=== PATIENT | female | born 1935 | race Caucasian/White ===

== ENCOUNTER 2017-01-06 08:45 | Observation (INO) | payer MEDICARE, BC ==
[~2017-01-06] VITALS: TEMP 98.2; Ht 165.1 cm; Wt 76.8 kg
[~2017-01-06 08:45] MED LIST: ATOR20TA59 PO; BUME2TAB18 PO; BUSP10TA3 PO; CALC1TAB; CLON0.5T23 PO; LANS30CA50 PO; MIRT45TA4 PO; MULT-684 PO; NITR0.4T SL; OMEG300C PO; POLY255P2 PO; POTA-81 PO; RIVA15TA PO; SOTA80TA PO; TEMA15CA PO; VILA40TA PO
[2017-01-06] MEDS ORDERED: IOHEXOL 350 MG/ML 75ml INJECTION ONE (09:02)
[2017-01-06] MEDS ORDERED: SALINE FLUSH 10ml SYRINGE ONE ×2 (09:02→09:19)
[2017-01-06] MEDS ORDERED: NORMAL SALINE 100 ML ONE (09:02)
--- NOTE | 2017-01-06 09:35 | NUR ---
ARRIVAL AMBULATORY WITH WALKER TO ROOM 116 WITH DAUGHTER DION. ALERT AND ORIENTED X3. O2 3L PER NC. IVL IN PLACE. SITE FLUSHES WELL. PATIENT AND FAMILY ORIENTED TO SURROUNDINGS. WILL CONTINUE TO MONITOR.
[2017-01-06 09:47] VITALS: Ht 165.1 cm; Wt 76.8 kg
[2017-01-06 09:51] VITALS: BP 138/73; PULSE 63; RESP 18; TEMP 98.1; O2SAT 96
--- NOTE | 2017-01-06 09:55 | DI ---
Indication: ITS.REASON: I27.2 Pulmonary hypertension; I50.9 Heart failure PROCEDURE: CTA PULMONARY EMBOLI: Encounter: Initial Comparison: None Technique: Axial CT pulmonary angiographic phase images were performed through the chest after the administration of intravenous contrast. Coronal and Sagittal MIP reconstructed images were created and reviewed. Automated Exposure Control and Iterative Reconstruction dose reducing techniques were utilized. Contrast: Omnipaque 350 62 mL Findings: Pulmonary arteries: Exam is diagnostic to the subsegmental pulmonary arterial level. No filling defects identified to suggest a pulmonary embolus. Other findings: Small bilateral pleural effusions, right greater than left with compressive atelectasis. No pneumothorax. Calcified granuloma in the right lower lobe. No worrisome pulmonary masses. The central airways are patent. No axillary or or mediastinal adenopathy. Heart is severely enlarged. No pericardial effusion. Prior CABG. The upper abdomen shows reflux of contrast into the hepatic veins consistent with right heart insufficiency. Bone windows show no acute findings. Impression: 1. No pulmonary embolus. 2. Small bilateral pleural effusions and evidence of right heart insufficiency. 3. Severe cardiomegaly. .
[2017-01-06 10:38] VITALS: PULSE 58; RESP 18
[2017-01-06 10:42] LABS: BASOPHILS % (AUTO) 0.9 % (0-2); EOSINOPHILS # (AUTO) 0.2 T/MM3 (0-0.5); EOSINOPHILS % (AUTO) 4.2 % (0-4); HCT - HEMATOCRIT 26.4 % (36-46); HGB - HEMOGLOBIN 7.2 GM/DL (12-16); LYMPHOCYTES # (AUTO) 1.7 T/MM3 (1-4.8); LYMPHOCYTES % (AUTO) 36.2 % (23-45); MEAN CORPUSCULAR HGB 22.5 UUG (26-34); MEAN CORPUSCULAR HGB CONC(MCHC 27.3 GM/DL (31-37); MEAN CORPUSCULAR VOLUME 82.5 UM3 (80-100); MEAN PLATELET VOLUME 9.8 UM3 (9.4-12.4); MONOCYTES # (AUTO) 0.4 T/MM3 (0-0.8); NEUTROPHILS #(AUTO)-ABSOLUTE 2.3 T/MM3 (1.8-7.7); NEUTROPHILS % (AUTO) 49.7 % (33-66); WBC - WHITE BLOOD COUNT 4.6 T/MM3 (4.5-11.0)
[2017-01-06 10:53] LABS: ALBUMIN 3.7 G/DL (3.5-5.0); ALBUMIN/GLOBULIN RATIO 1.3 RATIO (1.1-2.2); ALKALINE PHOSPHATASE 83 U/L (38-126); ALT (SGPT) 35 U/L (9-52); ANION GAP 8 MEQ/L (5-15); AST (SGOT) 40 U/L (14-36); BUN/CREATININE RATIO 19 RATIO (6-26); CALCIUM 9.3 MG/DL (8.4-10.2); CHLORIDE 100 MEQ/L (98-107); CO2 - CARBON DIOXIDE 35 MEQ/L (22-30); CREATININE 1.6 MG/DL (0.7-1.2); GLOMERULAR FILTRATION RATE 31; GLUCOSE 104 MG/DL (65-110); MAGNESIUM 2.4 MG/DL (1.6-2.3); POTASSIUM 4.4 MEQ/L (3.6-5); SODIUM 143 MEQ/L (134-144); TOTAL PROTEIN 6.6 G/DL (6.3-8.2)
[2017-01-06 10:56] LABS: INR 1.38 (0.76-1.04)
--- NOTE | 2017-01-06 11:33 | NUR ---
LAB/NOTIFICATION DR. ABDULLAHI NOTIFIED OF HGB 7.[address] ABDULLAHI GAVE VERBAL ORDERS TO THIS RN TO RECHECK CBC NOW. RN VERBALIZED UNDERSTANDING. ORDERS IMPLEMENTED AND LAB NOTIFIED.
[2017-01-06 11:53] LABS: HCT - HEMATOCRIT 25.9 % (36-46); MEAN CORPUSCULAR HGB 22.2 UUG (26-34); MEAN CORPUSCULAR VOLUME 82.2 UM3 (80-100); MEAN PLATELET VOLUME 9.6 UM3 (9.4-12.4); RED BLOOD COUNT 3.15 M/MM3 (4.00-5.20); WBC - WHITE BLOOD COUNT 4.8 T/MM3 (4.5-11.0)
[2017-01-06 11:58] LABS: EOSINOPHILS # (MANUAL) 0.2 T/MM3 (0-0.5); LYMPHOCYTES # (MANUAL) 2.2 T/MM3 (1-4.8); MONOCYTES # (MANUAL) 0.5 T/MM3 (0-0.8); NEUTROPHILS #(MANUAL)-ABSOLUTE 1.9 T/MM3 (1.8-7.7); TOTAL CELLS COUNTED 100 %
[2017-01-06] MEDS: NORMAL SALINE 1,000 ML IV SCH ×3 (12:07→18:47)
[2017-01-06] MEDS ORDERED: PNEUMOCOCCAL VAC. ADMIN. CHARGE INJ ONE (14:00)
[2017-01-06 14:11] VITALS: PULSE 58; RESP 18
--- NOTE | 2017-01-06 14:25 | HPPDOC ---
SAVI JEAN V CONSUMER SAFETY INSPECTOR 01/06/17 1425: HPI - Adult Date DATE: 01/06/17 TIME: 14:22 General Chief Complaint: anemia, acute kidney injury History of Present Illness Patient is an 81-year-old female who presented to [facility] today for scheduled GABRIELA under the care of Dr. Mckeon. Preoperative lab revealed anemia with a hemoglobin of 7.0. WBC 4.8, hemoglobin 25.9. Sodium is 143, potassium 4.4, BUNs 31, creatinine 1.6, catheter osmology 282, magnesium 2.4, AST 40. Her last reported creatinine was in September 2016 in which it was 1.2. Given the findings of anemia, accompanied with acute kidney injury. The GABRIELA was canceled and the hospitalist services were contacted for admission for further evaluation and workup. Patient is seen on initial examination with her daughter at the bedside. She is alert and oriented and pleasant. She has been on Xarelto long-term for history of atrial fibrillation. She denies having a history of GI bleeding, however, does report several weeks ago. She did note one episode where her stool was black in color. She also describes having an ongoing intermittent nausea, feeling throughout her abdomen, however, denies vomiting or hemoptysis. Admission vital signs to between 98.1, pulse 63, blood pressure 138/73, pulse ox 96% on 3 liters. 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 Hysterectomy ERCP-1985 Last reported colonoscopy and EGD were in 2001 Current Medications Home Meds Reported Medications Rivaroxaban (Xarelto) 15 Mg Tablet, 15 MG PO DAILY, TAB Take 1 tablet, by mouth, 2 times a day with meals. 09/15/16 Potassium Chloride (Potassium Chloride) 20 Meq Tablet.er, 20 MEQ PO BID, TAB Take 1 tablet, by mouth, daily with breakfast. 09/15/16 Nitroglycerin (Nitrostat) 0.4 Mg Tablet, 0.4 MG SL Y for PRN ORDERS, TAB 09/15/16 Lansoprazole (Prevacid) Unknown Strength Capsule.dr, PO DAILY, CAP 09/15/16 Sotalol HCl (Sotalol) 80 Mg Tablet, 80 MG PO ACBID, TAB Take 1 tablet, by mouth, 2 times a day (before meals). 09/10/16 Clonazepam (Clonazepam) 0.5 Mg Tab.rapdis, 1 TAB PO TID, TAB 09/10/16 Calcium Carbonate/Vitamin D3 (Caltrate 600 + D Tablet) 1 Each Tablet, 1 TAB DAILY 09/10/16 Polyethylene Glycol 3350 (Polyethylene Glycol 3350) 255 Gm Powder, 17 GM PO DAILY Y for PRN ORDERS, #527 GM 09/10/16 Bumetanide (Bumetanide) 2 Mg Tablet, 1 TAB PO BID, #30 TAB 5 Refills 09/10/16 Multivitamin W/Iron, Minerals (Multivitamins with Iron) 1 Each Tab.chew, 1 TAB PO DAILY 08/21/16 Atorvastatin Calcium (Atorvastatin Calcium) 20 Mg Tablet, 20 MG PO HS 08/21/16 Temazepam (Temazepam) 15 Mg Capsule, 15 MG PO HS Y for ANXIETY 01/04/16 Buspirone HCl (Buspirone HCl) 10 Mg Tablet, 10 MG PO BID 01/04/16 Vilazodone Hydrochloride (Viibryd) 40 Mg Tablet, 40 MG PO DAILY 10/11/15 Mirtazapine (Mirtazapine) 45 Mg Tablet, 45 MG PO HS 10/11/15 Allergies: Coded Allergies: morphine (Verified Allergy, Severe, CARDIAC ARREST, 01/06/17) Family History Family History: Father with congestive heart failure Brother with bone cancer Social History Smoking Status: Never smoker Substance Use Type: does not use Alcohol Intake: none Housing: house Advance Directives: Yes DPOA for Healthcare Only, Yes Full Code Social History Comments Primary care provider, Dr. Garsia [facility]ter, Dr Mckeon Review of Systems Constitutional: REPORTS: fatigue GI Upper Abdomen: nausea Comments 1 dark stool- 1 week ago Musculoskeletal General: weakness (RLE weakness) All Other Systems All Other Systems: Reviewed (remainder of 10-point ROS Neg.) Physical Exam General General Nourishment: well nourished, well developed Vital Signs Vital Signs Date Time Temp Pulse Resp B/P Pulse Ox O2 Delivery O2 Flow Rate FiO2 01/06/17 14:11 58 18 01/06/17 09:51 98.1 138/73 96 Nasal Cannula 3.00 Height (Feet): 5 Height (Inches): 5.00 Eyes Brief: FOUND: EOMI, PERRL Respiratory Brief: FOUND: clear all batista, equal bilaterally, NOT FOUND: wheezes Cardiovascular (brief) Cardiac Brief: FOUND: regular rate, regular rhythm, NOT FOUND: murmur, pedal edema Abdomen (brief) Abdominal Brief: FOUND: BS normo active x4, soft, NOT FOUND: distended, tender Musculoskeletal (brief) Musculoskeletal Brief: NOT FOUND: tenderness Integumentary (brief) Integumentary Brief: FOUND: dry, pink, warm Neurologic (brief) Neurological Brief: FOUND: cranial 2-12 intact, motor, sensory Neurologic RN Documented GCS Eye Opening: Verbal: Motor: Total: Psychiatric (brief) FOUND: alert, attentive, normal affect, oriented Laboratory Laboratory Tests Test 01/06/17 10:11 01/06/17 11:45 White Blood Count 4.6T/MM3 4.8T/MM3 Red Blood Count 3.20M/MM3 3.15M/MM3 Hemoglobin 7.2GM/DL 7.0GM/DL Hematocrit 26.4% 25.9% Mean Corpuscular Volume 82.5UM3 82.2UM3 Mean Corpuscular Hemoglobin 22.5UUG 22.2UUG Mean Corpuscular Hemoglobin Concent 27.3GM/DL 27.0GM/DL RDW Standard Deviation 47.9FL 47.2FL Platelet Count 244T/MM3 227T/MM3 Mean Platelet Volume 9.8UM3 9.6UM3 Immature Granulocyte % (Auto) 0.0% Neutrophils (%) (Auto) 49.7% Lymphocytes (%) (Auto) 36.2% Monocytes (%) (Auto) 9.0% Eosinophils (%) (Auto) 4.2% Basophils (%) (Auto) 0.9% Absolute Immature Granulocyte (auto 0.00T/MM3 Absolute Neutrophils (auto) 2.3T/MM3 Absolute Lymphocytes (auto) 1.7T/MM3 Absolute Monocytes (auto) 0.4T/MM3 Absolute Eosinophils (auto) 0.2T/MM3 Absolute Basophils (auto) 0.0T/MM3 Prothromb Time International Ratio 1.38 Turbidity < 20 Sodium Level 143MEQ/L Potassium Level 4.4MEQ/L Chloride Level 100MEQ/L Carbon Dioxide Level 35MEQ/L Anion Gap 8MEQ/L Blood Urea Nitrogen 31.0MG/DL Creatinine 1.6MG/DL Glomerular Filtration Rate Calc 31 BUN/Creatinine Ratio 19RATIO Glucose Level 104MG/DL Calculated Osmolality 282MOSM/KG Calcium Level 9.3MG/DL Magnesium Level 2.4MG/DL Total Bilirubin 0.50MG/DL Icterus Index < 2 Aspartate Amino Transf (AST/SGOT) 40U/L Alanine Aminotransferase (ALT/SGPT) 35U/L Alkaline Phosphatase 83U/L Total Protein 6.6G/DL Albumin 3.7G/DL Globulin 2.9G/DL Albumin/Globulin Ratio 1.3RATIO Chemistry Specimen Hemolysis < 15 Neutrophils % (Manual) 39.0% Band Neutrophils % 1.0% Lymphocytes % (Manual) 45.0% Monocytes % (Manual) 11.0% Eosinophils % (Manual) 4.0% Absolute Neutrophils (Manual) 1.9T/MM3 Band Neutrophils # 0.0T/MM3 Lymphocytes # (Manual) 2.2T/MM3 Monocytes # (Manual) 0.5T/MM3 Eosinophils # (Manual) 0.2T/MM3 Red Cell Morphology Comment Normal Assessment & Plan Problems: (1) Anemia Status: Acute (2) Acute kidney injury Status: Acute Assessment & Plan: Baseline creatinine appears to be 1-1.2 (3) Respiratory failure with hypoxia Qualifiers: Chronicity: acute on chronic Qualified Codes: J96.21 - Acute and chronic respiratory failure with hypoxia (4) Atrial fibrillation Status: Chronic Qualifiers: Atrial fibrillation type: paroxysmal Qualified Codes: I48.0 - Paroxysmal atrial fibrillation (5) Chronic anticoagulation Status: Chronic Assessment & Plan: Xarelto (6) Hx of breast cancer (7) Bipolar 1 disorder Status: Chronic (8) Depression Status: Chronic (9) Pulmonary hypertension Status: Chronic (10) HTN (hypertension) Status: Chronic (11) GERD (gastroesophageal reflux disease) Status: Chronic (12) IBS (irritable bowel syndrome) Status: Chronic (13) Constipation Status: Chronic (14) History of CVA with residual deficit Status: Resolved Plan/Intensity of Service Admit patient to outpatient observation under care of Dr. Crooks for anemia and acute kidney injury. Continue with consultation to Dr. Mckeon for further cardiac evaluation and recommendations this patient has significant cardiac history including pulmonary hypertension and right congestive heart failure. Continue to monitor patient on cardiac telemetry. CT angiogram was performed this morning which was negative for PE , however, does show small bilateral pleural effusions with evidence of right heart insufficiency and severe cardiomegaly. Regards to anemia. Will recheck a H&H this afternoon, will check Iron and also obtain a stool for occult blood. Patient continues on normal saline at 100 ML per hour. Will need to use caution with fluid overload given current cardiac status. However she will benefit from hydration given her acute kidney injury as well as seeming IV dye earlier today. Continue with oxygen to maintain adequate saturations. The patient states to use to only use oxygen at home, however, has required oxygen more routinely recently. She may have cardiac diet. SCDs to bilateral lower extremity for DVT prophylaxis Will resume home medications, however at this time, will hold Xarelto until further evaluation. Will discuss further plan of care with Dr. Crooks At time of discharge medical care will return to primary care provider [facility] samuels, Dr. Garsia DVT Prophylaxis: SCD'S Code Status Full Code Hospital Course Summary Disclaimer The hospital course summary below is not to be considered part of the above Progress Note. Hospital Course Summary 01/06/17 Admit patient to outpatient observation under care of Dr. Crooks for anemia and acute kidney injury. Continue with consultation to Dr. Mckeon for further cardiac evaluation and recommendations this patient has significant cardiac history including pulmonary hypertension and right congestive heart failure. Continue to monitor patient on cardiac telemetry. CT angiogram was performed this morning which was negative for PE , however, does show small bilateral pleural effusions with evidence of right heart insufficiency and severe cardiomegaly. Regards to anemia. Will recheck a H&H this afternoon, will check Iron and also obtain a stool for occult blood. Patient continues on normal saline at 100 ML per hour. Will need to use caution with fluid overload given current cardiac status. However she will benefit from hydration given her acute kidney injury as well as seeming IV dye earlier today. Continue with oxygen to maintain adequate saturations. The patient states to use to only use oxygen at home, however, has required oxygen more routinely recently. She may have cardiac diet. SCDs to bilateral lower extremity for DVT prophylaxis Will resume home medications, however at this time, will hold Xarelto until further evaluation. Will discuss further plan of care with Dr. Crooks At time of discharge medical care will return to primary care provider [facility], Dr. Ady CROOKS,ALEXSANDRA Moore MD 01/06/17 3210: Past Medical History Current Medications Home Meds Reported Medications Rivaroxaban (Xarelto) 15 Mg Tablet, 15 MG PO DAILY, TAB Take 1 tablet, by mouth, 2 times a day with meals. 09/15/16 Potassium Chloride (Potassium Chloride) 20 Meq Tablet.er, 20 MEQ PO BID, TAB Take 1 tablet, by mouth, daily with breakfast. 09/15/16 Nitroglycerin (Nitrostat) 0.4 Mg Tablet, 0.4 MG SL Y for PRN ORDERS, TAB 09/15/16 Lansoprazole (Prevacid) Unknown Strength Capsule.dr, PO DAILY, CAP 09/15/16 Sotalol HCl (Sotalol) 80 Mg Tablet, 80 MG PO ACBID, TAB Take 1 tablet, by mouth, 2 times a day (before meals). 09/10/16 Clonazepam (Clonazepam) 0.5 Mg Tab.rapdis, 1 TAB PO TID, TAB 09/10/16 Calcium Carbonate/Vitamin D3 (Caltrate 600 + D Tablet) 1 Each Tablet, 1 TAB DAILY 09/10/16 Polyethylene Glycol 3350 (Polyethylene Glycol 3350) 255 Gm Powder, 17 GM PO DAILY Y for PRN ORDERS, #527 GM 09/10/16 Bumetanide (Bumetanide) 2 Mg Tablet, 1 TAB PO BID, #30 TAB 5 Refills 09/10/16 Multivitamin W/Iron, Minerals (Multivitamins with Iron) 1 Each Tab.chew, 1 TAB PO DAILY 08/21/16 Atorvastatin Calcium (Atorvastatin Calcium) 20 Mg Tablet, 20 MG PO HS 08/21/16 Temazepam (Temazepam) 15 Mg Capsule, 15 MG PO HS Y for ANXIETY 01/04/16 Buspirone HCl (Buspirone HCl) 10 Mg Tablet, 10 MG PO BID 01/04/16 Vilazodone Hydrochloride (Viibryd) 40 Mg Tablet, 40 MG PO DAILY 10/11/15 Mirtazapine (Mirtazapine) 45 Mg Tablet, 45 MG PO HS 10/11/15 Allergies: Coded Allergies: morphine (Verified Allergy, Severe, CARDIAC ARREST, 01/06/17) Assessment & Plan Problems: (1) Anemia Status: Acute (2) Acute kidney injury Status: Acute Assessment & Plan: Baseline creatinine appears to be 1-1.2 (3) Respiratory failure with hypoxia Qualifiers: Chronicity: acute on chronic Qualified Codes: J96.21 - Acute and chronic respiratory failure with hypoxia (4) Atrial fibrillation Status: Chronic Qualifiers: Atrial fibrillation type: paroxysmal Qualified Codes: I48.0 - Paroxysmal atrial fibrillation (5) Chronic anticoagulation Status: Chronic Assessment & Plan: Xarelto (6) Hx of breast cancer (7) Bipolar 1 disorder Status: Chronic (8) Depression Status: Chronic (9) Pulmonary hypertension Status: Chronic (10) HTN (hypertension) Status: Chronic (11) GERD (gastroesophageal reflux disease) Status: Chronic (12) IBS (irritable bowel syndrome) Status: Chronic (13) Constipation Status: Chronic (14) History of CVA with residual deficit Status: Resolved Assessment I have independently evaluated and examined this patient. I reviewed the chart, the patient's history, and the CONSUMER SAFETY INSPECTOR's documented findings as above. We discussed and formulated the assessment and plan as above with additions as below: Wednesday was seen with her daughter at the bedside. She describes chronic nausea and discomfort across her upper abdomen without reflux or indigestion provided she takes PPI. She is not aware of any overt bleeding but did have a dark stool several weeks ago suspicious for melena. She denies chest pain and recent ischemic evaluation was negative. She describes chronic exertional dyspnea requiring oxygen and minor right lower extremity weakness due to stroke in the past. On examination chest decreased breath sounds at the right base, cardiac rhythm is regular, abdomen is distended suggestive of ascites. There is minor edema in dependent thighs but no edema at the ankles. Neck veins are distended. Repeat hemoglobin was 7.0 with MCV of 82.2. Last known hemoglobin was a little above 10 but that was in August and presumably prior to surgery. The patient's creatinine is 1.6 with prior surgery in August of 1.2. This preceded contrast dye administration earlier today. The patient has not been hypotensive since arrival. CTA has been reviewed by myself demonstrating right greater than left pleural effusions which are small to moderate, cardiomegaly, and no evidence of PE. There is suggestion of ascites in limited upper abdominal cuts but this is not definite. One unit of blood to be transfused tonight and hemoglobin reassessed in the morning. Iron studies to be obtained as iron deficiency suggested. Check Hemoccults-chronic blood loss likely, EGD may be necessary but will defer until cardiac evaluation completed. Monitor urine output, reassess renal function in a.m. following dye administration. Diuretics on hold pending stabilization of renal function-renal insufficiency likely multifactorial. Will benefit from ambulatory oximetry tomorrow to determine O2 demand with activities. In addition to above diagnoses please add: #1 coronary artery disease #2 valvular heart disease #3 diastolic/valvular heart failure, chronic Plan/Intensity of Service Discussed with Dr. Mckeon, CT reviewed by myself, laboratory data reviewed, past records reviewed SAVI JEAN APRN Jan 06, 2017 14:25 ALEXSANDRA CROOKS MD Jan 06, 2017 18:10
[2017-01-06] MEDS ORDERED: PNEUMOCOCCAL 13 VACCINE 0.5 ML SYRINGE IM ONE (14:30)
--- OUTSIDE RECORDS SUMMARY | 2017-01-06 14:49 | XMS REPORT | Continuity of Care Document ---
Author Author [facility] Organization [facility] Address Unknown Phone Unavailable Support Name Relationship Address Phone EUGENE SALES MD Caregiver [facility] [address] [place] [address] [address] [place] [phone] VARSHA VIDLA DO Caregiver [address] [place] [phone] NELLIEELLIOT POLLACKDY Next Of Kin [address] [place] [address] Insurance Providers Payer Name Policy Number Subscriber Name Relationship Medicare [id number] Wednesday,Rubin Hidalgo 18 Self [facility] [id number] Wednesday,Rubin Hidalgo 18 Self Advance Directives Directive Response Recorded Date/Time Advanced Directives Type Living Will DPOA for Healthcare 05/03/14 11:57am Ordered Resuscitation Status Full Code 05/03/14 3:58pm Resuscitation Documents on File No 05/03/14 11:57am Chief Complaint and Reason for Visit Chief Complaint RT COMPLETE MASTECTOMY/RT AXILLARY LYMPH NODE SAM Reason for Visit Breast carcinoma Problems Medical Problems Problem Onset Date Status EXPRESSIVE APHASIA Unknown Active Breast carcinoma 07/03/2014 Active Medications Medication Dose Route Sig Days/Qty Instructions Order Date Discontinued Date Status [Aspirin] 11/06/08 03/16/09 Discontinued [Bultalbital/Asa,Caff] 11/06/08 09/18/11 Discontinued [Clonazepam] 11/06/08 09/18/11 Discontinued [Effexor] 11/06/08 09/18/11 Discontinued [Metoprol] 11/06/08 09/18/11 Discontinued [Plendil Cr] 11/06/08 09/18/11 Discontinued [Prevacid] 11/06/08 09/18/11 Discontinued [Temazepam] 11/06/08 09/18/11 Discontinued [Vitamins] 11/06/08 09/18/11 Discontinued Warfarin Sodium 5 Mg PO 03/16/09 09/18/11 Discontinued Oxycodone Hcl/Acetaminophen 1 Pack PO 03/16/09 09/18/11 Discontinued L-Methylfolate 15 Mg PO BEDTIME 09/18/11 10/11/13 Discontinued Duloxetine Hcl 60 Mg PO DAILY 09/18/11 01/09/12 Discontinued Aripiprazole 2 DAILY 09/18/11 01/09/12 Discontinued Aspirin 325 Mg PO BEDTIME 09/18/11 10/11/13 Discontinued Clonazepam 1 Mg PO TWICE A DAY 09/18/11 01/09/12 Discontinued Metoprolol Tartrate 50 Mg PO TWICE A DAY 09/18/11 07/03/14 Discontinued Temazepam 15 Mg PO BEDTIME 09/18/11 Active Fish Oil/[place]-3 Fatty Acids 1 Cap PO BEDTIME 09/18/11 01/09/12 Discontinued Polyethylene Glycol 3350 12 Ea PO Q2D 09/18/11 Active Clonazepam 1 Mg PO BEDTIME 09/18/11 12/31/11 Discontinued Lansoprazole 30 Mg PO DAILY 09/18/11 Active Tolterodine Tartrate 4 Mg PO DAILY 12/31/11 10/11/13 Discontinued Butalb/Acetaminophen/Caffeine 1 Tab PO NEEDED 12/31/11 10/11/13 Discontinued Clidinium Br/Chlordiazepoxide 1 Cap PO NEEDED 12/31/11 10/11/13 Discontinued Fa/Mv,Ca,Fe,Min/Lycopene/Lut 1 Tab PO DAILY 01/09/12 Active [Occuvite Vitamin] 1 Tab PO DAILY 01/09/12 Active Naphazoline Hcl/Peg 300 15 Ml OP DAILY 01/09/12 Active Promethazine Hcl 25 Mg PO Q6H PRN 01/09/12 Active [[place] C] 800 Mg PO DAILY 01/09/12 04/14/13 Discontinued Mirtazapine 15 Mg PO DAILY 0.5 TAB 04/14/13 10/11/13 Discontinued Hydrocodone Bit/Acetaminophen 1 Udtab PO NEEDED 04/14/13 Discontinued Felodipine 10 Mg PO DAILY 04/14/13 07/03/14 Discontinued [Vibryd] 40 Mg DAILY 04/14/13 Active Calcium Carbonate/Vitamin D3 1 Tab PO TWICE A DAY 04/14/13 Active Ondansetron Hcl 8 Mg PO NEEDED 04/14/13 Active Lorazepam 0.5 Mg PO NEEDED 04/14/13 10/11/13 Discontinued Promethazine Hcl 25 Mg PO NEEDED 04/14/13 10/11/13 Discontinued Sucralfate 1 G PO DAILY 04/14/13 10/11/13 Discontinued Metronidazole 500 Mg PO DAILY 04/14/13 10/11/13 Discontinued Amoxicillin Trihydrate 500 Mg PO THREE TIMES A DAY 04/14/13 Discontinued Clonazepam 1 Mg PO TWICE A DAY 10/11/13 Active Mirtazapine 15 Mg PO BEDTIME 10/11/13 Active Fish Oil/[place]-3 Fatty Acids 1 Cap PO TWICE A DAY 05/03/14 Active Rivaroxaban 20 Mg PO DAILY 05/03/14 07/03/14 Discontinued Levomefolate Calcium 15 Mg PO DAILY 05/03/14 Active [Myrbetriq] 50 Mg PO DAILY] 05/03/14 Active Social History Social History Problem Response Recorded Date/Time Smoking Status Never smoker 05/03/2014 11:59am Chewing Tobacco Status No 05/03/2014 11:59am Hx Substance Use No 06/29/2014 7:01am Hx Alcohol Use No 06/29/2014 7:01am Has the pt used tobacco in the last 12 months No 06/29/2014 7:01am Query Response Start Date Stop Date Smoking Status Never smoker Hospital Discharge Instructions Instructions: Care Instructions: Reason for Hospitalization: breast carcinoma I was in the hospital because (patient own words): "I had a mastectomy." Discharge Diet: As tolerated Follow Up Appointments: Follow up appointment scheduled for 07/11/14 at 1:00pm. Wound/Incision Care: May shower. Durable Medical Equipment: N/A Notify Physician If: During the week: If you have questions about your care or wound, Call Dr. Sales's office at [phone]. During the evening or on the weekends: If you have questions about your care or wound, Call [facility] at [phone] and have the boiler control room operator page Dr. Sales. Condition at time of discharge: Good see patient instructions Care Plan Discharge Patient: Goal: Understand discharge plan Maximum functional status Patient Instructions: see patient instructions rate >100, confusion, or persistent nausea/vomitting. 2.Severe pain, swelling, redness, or warmth in either of your legs. 3.During office hours, call [phone] 4. After hours, please call [facility] at [phone], and have the boiler control room operator page your Surgeon IN THE EVENT OF AN EMERGENCY, seek medical care at the nearest Emergency Room Condition at time of discharge: Good Plan of Care Discharge Date 07/03/14 1:22pm Disposition 01 DISCHARGED HOME, SELF-CARE Instructions/Education Provided DI for Mastectomy Prescriptions See Medications Section Functional Status Query Response Date Recorded Physical Hygiene Self July 03, 2014 12:44pm Disabilities Visual July 03, 2014 12:44pm Devices Used Glasses July 03, 2014 12:44pm Dressing Self July 03, 2014 12:44pm Ambulation Self July 03, 2014 12:44pm Diet Self July 03, 2014 12:44pm Mental Status Alert Oriented July 03, 2014 12:44pm Disabilities Visual July 03, 2014 12:44pm Devices Used Glasses July 03, 2014 12:44pm Physical Hygiene Self July 03, 2014 12:44pm Dressing Self July 03, 2014 12:44pm Ambulation Self July 03, 2014 12:44pm Diet Self July 03, 2014 12:44pm Allergies, Adverse Reactions, Alerts Allergen Type Severity Reaction Status Last Updated Morphine Allergy Severe CARDIAC ARREST Active 10/11/13 Immunizations Name Given Type Hx Influenza Vaccination Y FALL 2012 Historical Hx Pneumococcal Vaccination Y WITHIN PAST 5 YEARS Historical Hx Influenza Vaccination Y FALL 2012 Historical Vital Signs Acute Vital Signs Vital Response Date/Time Temperature (Fahrenheit) 97.3 deg F (96.8 - 99.1) Temperature (Calculated Celsius) 36.12404 degrees C (36.0 - 37.3) Temperature Source Oral Pulse Rate (adult) 72 bpm (60 - 100) Blood Pressure 138/85 mm Hg Blood Pressure Source Automatic Cuff Height 5 ft 6 in Weight 160 lb Body Mass Index 25.0 kg/m^2 Results Test Source Date Result Interp. Ref. Range Comments Activated Partial Thromboplast Time October 11, 2013 9:37pm 29.1 SEC N 24-36 Alanine Aminotransferase (ALT/SGPT) October 12, 2013 4:50am 40 U/L N 9- 52 Albumin October 12, 2013 4:50am 3.3 G/DL L 3.5-5.0 Albumin/Globulin Ratio October 12, 2013 4:50am 1.1 RATIO N 1.1-2.2 Alkaline Phosphatase October 12, 2013 4:50am 88 U/L N 38-126 Amylase Level April 14, 2013 9:06am 66 U/L N 30-110 Anion Gap October 12, 2013 4:50am 12 MEQ/L N 5-15 Aspartate Amino Transf (AST/SGOT) October 12, 2013 4:50am 31 U/L N 14- 36 B-Type Natriuretic Peptide January 21, 2009 9:10am 435 PG/ML H 15-100 BUN/Creatinine Ratio October 12, 2013 4:50am 23 RATIO N 6-26 Basophils # (Auto) July 03, 2014 4:50am 0.0 T/MM3 N 0-0.2 Basophils (%) (Auto) July 03, 2014 4:50am 0.7 % N 0-2 Blood Urea Nitrogen October 12, 2013 4:50am 21.0 MG/DL H 7-17 Calcium Level October 12, 2013 4:50am 9.4 MG/DL N 8.4-10.2 Calculated Osmolality October 12, 2013 4:50am 287 MOSM/KG H 261-280 Carbon Dioxide Level October 12, 2013 4:50am 30 MEQ/L N 22-30 Chloride Level October 12, 2013 4:50am 106 MEQ/L N 98-107 Creatinine October 12, 2013 4:50am 0.9 MG/DL DN 0.7-1.2 EKG January 21, 2009 9:16am Complete - Eosinophils # (Auto) July 03, 2014 4:50am 0.1 T/MM3 N 0-0.5 Eosinophils (%) (Auto) July 03, 2014 4:50am 3.0 % N 0-4 Globulin October 12, 2013 4:50am 3.1 G/DL N 2.4-3.6 Glomerular Filtration Rate Calc October 12, 2013 4:50am 61 - Glucose Level October 12, 2013 4:50am 105 MG/DL N 65-110 Hematocrit July 03, 2014 4:50am 30.3 % L 36-46 Hemoglobin July 03, 2014 4:50am 9.7 GM/DL DL 12-16 Immature Granulocyte # (Auto) July 03, 2014 4:50am 0.01 T/MM3 N 0.00- 0.03 Immature Granulocyte % (Auto) July 03, 2014 4:50am 0.2 % N 0.0-0.5 Influenza Virus Types A,B Antigen November 06, 2008 11:35am Negative - Lab Scanned Report April 29, 2010 4:50pm LAB TEST FORM REQUEST [id number] - Lipase April 14, 2013 9:06am 45 U/L N 23-300 Lymphocytes # (Auto) July 03, 2014 4:50am 1.4 T/MM3 N 1-4.8 Lymphocytes (%) (Auto) July 03, 2014 4:50am 35.6 % N 23-45 Mean Corpuscular Hemoglobin July 03, 2014 4:50am 29.8 UUG N 26-34 Mean Corpuscular Hemoglobin Concent July 03, 2014 4:50am 32.0 GM/DL N 31-37 Mean Corpuscular Volume July 03, 2014 4:50am 92.9 UM3 N 80-100 Mean Platelet Volume July 03, 2014 4:50am 9.4 UM3 N 9.4-12.4 Monocytes # (Auto) July 03, 2014 4:50am 0.4 T/MM3 N 0-0.8 Monocytes (%) (Auto) July 03, 2014 4:50am 9.6 % H 0-9.0 Neutrophils # (Auto) July 03, 2014 4:50am 2.1 T/MM3 N 1.8-7.7 Neutrophils (%) (Auto) July 03, 2014 4:50am 50.9 % N 33-66 Platelet Count July 03, 2014 4:50am 184 T/MM3 N 130-400 Potassium Level October 12, 2013 4:50am 3.9 MEQ/L N 3.6-5 Prothromb Time International Ratio June 29, 2014 6:50am 0.97 N 0.81- 1.09 THERAPUTIC RANGE=2.00-3.00 FOR ANTI-THROMBOSIS THERAPUTIC RANGE=2.50- 3.50 FOR IMPLANTED VALVE RDW Standard Deviation July 03, 2014 4:50am 44.7 FL N 36.9-50.2 Red Blood Count July 03, 2014 4:50am 3.26 M/MM3 L 4.00-5.20 Sodium Level October 12, 2013 4:50am 148 MEQ/L H 134-144 Tests Not Done March 16, 2009 3:53pm Not done - Has specimen been collected/obtained? Y Thyroid Stimulating Hormone (TSH) January 21, 2009 9:10am 2.07 MIU/ML N 0.47-4.68 Total Bilirubin October 12, 2013 4:50am 0.40 MG/DL N 0.20-1.30 Total Protein October 12, 2013 4:50am 6.4 G/DL N 6.3-8.2 Troponin I October 11, 2013 9:37pm 0.016 ng/ml N 0-0.12 Urinalysis Comment April 14, 2013 9:00am Microscopic not ind. - Has specimen been collected/obtained? Y Urine Bacteria September 10, 2008 2:28pm 1+ - ALL [facility] UA'S GET MICRO Urine Bilirubin April 14, 2013 9:00am Negative - Has specimen been collected/obtained? Y Urine Blood April 14, 2013 9:00am Negative - Has specimen been collected/obtained? Y Urine Collection Type April 14, 2013 9:00am Voided - Has specimen been collected/obtained? Y Urine Color April 14, 2013 9:00am Yellow - Has specimen been collected /obtained? Y Urine Glucose (UA) April 14, 2013 9:00am Negative - Has specimen been collected/obtained? Y Urine Hyaline Casts September 10, 2008 2:28pm 20-30 /LPF - ALL [facility] UA' S GET MICRO Urine Ketones April 14, 2013 9:00am Negative - Has specimen been collected/obtained? Y Urine Leukocyte Esterase April 14, 2013 9:00am Negative - Has specimen been collected/obtained? Y Urine Microscopic Not Indicated January 09, 2012 2:04pm Not indicated - Has specimen been collected/obtained? Y Urine Mucus September 10, 2008 2:28pm Present - ALL [facility] UA'S GET MICRO Urine Nitrite April 14, 2013 9:00am Negative - Has specimen been collected/obtained? Y Urine Protein April 14, 2013 9:00am Negative - Has specimen been collected/obtained? Y Urine RBC January 14, 2012 10:45am None seen /HPF - Has specimen been collected/obtained? Y Urine Renal Epithelial Cells January 14, 2012 10:45am 0-1 /HPF - Has specimen been collected/obtained? Y Urine Specific [place] April 14, 2013 9:00am 1.015 - Has specimen been collected/obtained? Y Urine Squamous Epithelial Cells January 14, 2012 10:45am Few - Has specimen been collected/obtained? Y Urine Turbidity April 14, 2013 9:00am Clear - Has specimen been collected/obtained? Y Urine Urobilinogen April 14, 2013 9:00am Normal EU/DL - Has specimen been collected/obtained? Y Urine WBC January 14, 2012 10:45am 0-1 /HPF - Has specimen been collected/obtained? Y Urine pH April 14, 2013 9:00am 6.5 - Has specimen been collected/ obtained? Y White Blood Count July 03, 2014 4:50am 4.1 T/MM3 L 4.5-11.0 Urine Culture Urine, Straight Cath May 10, 2009 3:00pm Procedures Procedure Status Date Provider(s) EXCISION BREAST LESION completed 05/04/14 EUGENE SALES MD Simple mastectomy of left breast with sentinel node biopsy completed EUGENE SALES MD Incision and drainage completed 06/30/14 EUGENE SALES MD Encounters Encounter Location Date/Time Discharged Inpatient [facility] 07/01/14 10:37am Registered [facility] 05/04/14 9:26am Registered Clinic [facility] 04/26/14 12:39pm Registered Clinic [facility] 04/17/14 10:22am Registered [facility] 04/12/14 4:01pm Recent Diagnosis Breast carcinoma
--- OUTSIDE RECORDS SUMMARY | 2017-01-06 14:49 | XMS REPORT | Continuity of Care Document ---
Author Author [facility] Organization [facility] Address Unknown Phone Unavailable Support Name Relationship Address Phone NELLIE ABDULLAHI MD Caregiver [address] [place] [address] Unavailable DOTTY DAWSON MD Caregiver [address] [place] [address] Unavailable VARSHA VIDAL DO Caregiver [address] [place] [address] Unavailable DION BALLARD Next Of Kin [address] [id number] Insurance Providers Guarantor WednesdayRubin Address [address] [place] [address] Email DENIED/NO TO PT [facility] Federal Policy Number [id number] Subscriber's Name Wednesday,Rubin Hidalgo Relationship 18 Self Group Number [id number] Effective Date 03 Payer Medicare Policy Number [id number] Subscriber's Name WednesdayRubin Relationship 18 Self Effective Date 00 Advance Directives Directive Response Recorded Date/Time Advanced Directives Type Living Will DPOA for Healthcare 05/03/14 11:57am Ordered Resuscitation Status Full Code 05/03/14 3:58pm Resuscitation Documents on File No 05/03/14 11:57am Chief Complaint and Reason for Visit Chief Complaint Dyspnea/Respdistress Reason for Visit Pleural effusion Problems Active Problems Medical Problem Onset Date Status Atrial fibrillation and flutter Unknown Acute Breast carcinoma 07/03/2014 Acute Contusion of right back wall of thorax Unknown Acute Dyspnea Unknown Acute EXPRESSIVE APHASIA Unknown Acute Head injury consultation Unknown Acute Scalp laceration Unknown Acute Past Problems Medical Problem Onset Date CHF exacerbation Unknown Congestive heart failure (CHF) Unknown Pleural effusion Unknown Medications Current Home Medications Medication Dose Units Route Directions Days Qty Instructions Start Date Antiox#10/Om3/Dha/Epa/Lut/Zeax (I-Caps With Lutein-Longs 3 Sfg) 1 Each Capsule 1 Cap Oral Daily 09/03/16 Aspirin 81 Mg Tab.chew 81 Mg Oral Daily 09/03/16 Atorvastatin Calcium 20 Mg Tablet 20 Mg Oral Bedtime 08/21/16 Bumetanide 1 Mg Tablet 1 Mg Oral Daily 09/03/16 Buspirone Hcl 10 Mg Tablet 10 Mg Oral Twice A Day 01/04/16 Butalbital/Aspirin/Caffeine (Fiorinal 50-325-40 Mg Capsule) 1 Each Capsule 1 Cap Oral Every 6 Hours as needed for Headache 08/21/16 Calcium Carbonate (Calcium) 500 Mg Tablet 500 Mg Oral Daily 09/03 Lansoprazole (Prevacid) 30 Mg Capsule.dr 30 Mg Oral Daily Mirtazapine 45 Mg Tablet 45 Mg Oral Bedtime 10/11/15 Multivitamin W/Iron, Minerals (Multivitamins With Iron) 1 Each Tab.chew 1 Tab Oral Daily 08/21/16 Longs-3 Fatty Acids/Fish Oil (Fish Oil Dr 1,000 Mg Softgel) 1 Each Capsule.dr 3 Cap Oral Twice A Day 08/21/16 Potassium Chloride 10 Meq Tablet.er 10 Meq Oral Give With Breakfast 08/21/16 Sotalol Hcl (Sotalol) 80 Mg Tablet 40 Mg Oral Twice A Day Temazepam 15 Mg Capsule 15 Mg Oral Bedtime as needed for Anxiety 01/04/16 Vilazodone Hydrochloride (Viibryd) 40 Mg Tablet 40 Mg Oral Daily 10/11/15 Vitamin B Complex 1 Each Tablet 1 Tab Oral Daily 09/03/16 Past Home Medications Medication Directions Ordered Status [place] , 800 Mg Oral Daily 01/09/12 Discontinued Amoxicillin Trihydrate (Amoxicillin) 500 Mg Capsule, 500 Mg Oral Three Times A Day 04/14/13 Discontinued Aripiprazole (Abilify) 2 Mg Tablet, 2 Daily 09/18/11 Discontinued Aspirin 325 Mg Tablet, 325 Mg Oral Bedtime 09/18/11 Discontinued Aspirin , 11/06/08 Discontinued Bultalbital/Asa,Caff , 11/06/08 Discontinued Butalb/Acetaminophen/Caffeine (Fioricet 50/325/40) 1 Tab Tablet, 1 Tab Oral As Needed 12/31/11 Discontinued Clidinium Br/Chlordiazepoxide (Librax 5/2.5MG) 1 Cap Capsule, 1 Cap Oral As Needed 12/31/11 Discontinued Clonazepam 1 Mg Tablet, 1 Mg Oral Daily 10/11/13 Discontinued Clonazepam (Klonopin) 1 Mg Tablet, 1 Mg Oral Twice A Day 09/18/11 Discontinued Clonazepam 1 Mg Tablet, 1 Mg Oral Bedtime 09/18/11 Discontinued Clonazepam 1 Mg , 11/06/08 Discontinued Duloxetine Hcl (Cymbalta) 60 Mg Capsule.dr, 60 Mg Oral Daily 09/18/11 Discontinued Effexor 150 Mg , 11/06/08 Discontinued Felodipine (Felodipine Er) 10 Mg Tab.sr.24h, 10 Mg Oral Daily 04/14/13 Discontinued Fish Oil/Longs-3 Fatty Acids (Fish Oil 1,000 Mg Capsule) 1 Cap Capsule, 1 Cap Oral Bedtime 09/18/11 Discontinued Hydrocodone Bit/Acetaminophen (Lortab 7.5) 1 Udtab Tablet, 1 Udtab Oral As Needed 04/14/13 Discontinued L-Methylfolate (Deplin) 7.5 Mg Tablet, 15 Mg Oral Bedtime 09/18/11 Discontinued Lorazepam (Ativan) 0.5 Mg Tablet, 0.5 Mg Oral As Needed 04/14/13 Discontinued Metoprol 50 Mg , 11/06/08 Discontinued Metoprolol Tartrate 50 Mg Tablet, 50 Mg Oral Twice A Day 09/18/11 Discontinued Metronidazole 500 Mg Tablet, 500 Mg Oral Daily 04/14/13 Discontinued Mirtazapine (Remeron) 15 Mg Tablet, 15 Mg Oral Daily 04/14/13 Discontinued Oxycodone Hcl/Acetaminophen (Percocet 5/325 Tab) 1 Pack Pp, 1 Pack Oral 07/17 Discontinued Plendil Cr 10 Mg , 11/06/08 Discontinued Prevacid 30 Mg , 11/06/08 Discontinued Promethazine Hcl (Phenergan) 25 Mg Tablet, 25 Mg Oral As Needed 04/14/13 Discontinued Rivaroxaban (Xarelto) 20 Mg Tablet, 20 Mg Oral Daily 05/03/14 Discontinued Sotalol Hcl (Sotalol) 80 Mg Tablet, 80 Mg Oral Before Meals Twice A Day 08/29 Discontinued Sucralfate (Carafate) 1 G Tablet, 1 G Oral Daily 04/14/13 Discontinued Temazepam 15 Mg , 11/06/08 Discontinued Tolterodine Tartrate (Detrol La) 4 Mg Cap.sr.24h, 4 Mg Oral Daily 12/31/11 Discontinued Vitamins , 11/06/08 Discontinued Warfarin Sodium (Coumadin) 5 Mg Tablet, 5 Mg Oral 03/16/09 Discontinued Social History Social History Problem Response Recorded Date/Time Onset Date Status Chewing Tobacco Status No 05/03/2014 11:59am Not Applicable Not Applicable Hx Substance Use No 09/03/2016 4:15pm Not Applicable Not Applicable Hx Alcohol Use No 09/03/2016 4:15pm Not Applicable Not Applicable Has the pt used tobacco in the last 12 months No 09/04/2014 8:11am Not Applicable Not Applicable Tobacco Usage none 08/29/2014 10:14am Not Applicable Not Applicable Query Response Start Date Stop Date Smoking Status Never smoker Hospital Discharge Instructions No hospital discharge instructions. Plan of Care Discharge Date 09/03/16 6:27pm Disposition 02 TO [facility] Condition at Discharge Stable Prescriptions See Medication Section Referrals VARSHA VIDAL DO Address: [address] [place] [address] [place], [place] [id number] Functional Status No functional status results. Allergies, Adverse Reactions, Alerts Allergen Type Severity Reaction Status Last Updated Morphine Allergy Severe CARDIAC ARREST Active 09/03/16 Immunizations Query Response on File Recorded Date/Time Hx Influenza Vaccination Y AUG 2014 04/27/15 3:54pm Hx Pneumococcal Vaccination Y WITHIN PAST 5 YEARS 04/27/15 3:54pm Hx Influenza Vaccination Y AUG 2014 04/27/15 3:54pm Influenza Vaccine Hx 201409/03/16 4:15pm Tdap Vaccine Hx 10/11/15 10/11/15 8:47pm Vital Signs Acute Vital Signs Vital Response Date/Time Temperature (Fahrenheit) 98.6 deg F (96.8 - 99.1) 09/03/2016 3:15pm Temperature (Calculated Celsius) 37.39638 degrees C (36.0 - 37.3) 09/03/2016 3:15pm Pulse Rate (adult) 72 bpm (60 - 100) 09/03/2016 5:54pm Respiratory Rate 20 breaths/min (10 - 20) 09/03/2016 5:54pm O2 Sat by Pulse Oximetry 97 % (90 - 100) 09/03/2016 5:54pm Oxygen Flow Rate 2.00 L/min 09/03/2016 5:54pm Blood Pressure 114/73 mm Hg 09/03/2016 5:54pm Height (Feet) 5 feet 09/03/2016 3:15pm Height (Inches) 6.00 inches 09/03/2016 3:15pm Weight (Kilograms) 74.100 kg 09/03/2016 3:15pm Body Mass Index (BMI) 26.0 09/03/2016 3:15pm Results Laboratory Results Test Name Result Units Flags Reference Collection Date/Time Result Date/ Time Comments Total Bilirubin 1.00 MG/DL 0.20-1.30 08/25/2016 9:09pm 08/25/2016 9: 24pm Alkaline Phosphatase 114 U/L 38-126 08/25/2016 9:09pm 08/25/2016 9: 24pm Total Protein 5.9 G/DL L 6.3-8.2 08/25/2016 9:09pm 08/25/2016 9:24pm Albumin 3.3 G/DL L 3.5-5.0 08/25/2016 9:09pm 08/25/2016 9:24pm Globulin 2.6 G/DL 2.4-3.6 08/25/2016 9:09pm 08/25/2016 9:24pm Albumin/Globulin Ratio 1.3 RATIO 1.1-2.2 08/25/2016 9:09pm 08/25/2016 9 :24pm Aspartate Amino Transf (AST/SGOT) 33 U/L 14-36 08/25/2016 9:09pm 2015 9:24pm Alanine Aminotransferase (ALT/SGPT) 47 U/L 9-52 08/25/2016 9:09pm 08/25 9:24pm Urine Collection Type VOIDED-NOT CC-MIDSTR 08/25/2016 10:42pm 08/25 10:46pm Urine Color YELLOW YELLOW 08/25/2016 10:42pm 08/25/2016 10:46pm Urine Turbidity CLEAR CLEAR 08/25/2016 10:42pm 08/25/2016 10:46pm Urine Specific [place] 1.015 1.015-1.025 08/25/2016 10:42pm 2015 10:46pm Urine pH 6.0 5.0-8.0 08/25/2016 10:42pm 08/25/2016 10:46pm Urine Leukocyte Esterase NEGATIVE NEGATIVE 08/25/2016 10:42pm 2015 10:46pm Urine Nitrite NEGATIVE NEGATIVE 08/25/2016 10:42pm 08/25/2016 10: 46pm Urine Protein NEGATIVE NEGATIVE 08/25/2016 10:42pm 08/25/2016 10: 46pm Urine Glucose (UA) NEGATIVE NEGATIVE 08/25/2016 10:42pm 08/25/2016 10 :46pm Urine Ketones NEGATIVE NEGATIVE 08/25/2016 10:42pm 08/25/2016 10: 46pm Urine Urobilinogen 1.0 EU/DL NORMAL 08/25/2016 10:42pm 08/25/2016 10: 46pm Urine Bilirubin NEGATIVE NEGATIVE 08/25/2016 10:42pm 08/25/2016 10: 46pm Urine Blood NEGATIVE NEGATIVE 08/25/2016 10:42pm 08/25/2016 10:46pm Urinalysis Comment MICROSCOPIC NOT IND. 08/25/2016 10:42pm 2015 10:46pm White Blood Count 4.8 T/MM3 4.5-11.0 09/03/2016 4:17pm 09/03/2016 4: 21pm Red Blood Count 3.36 M/MM3 L 4.00-5.20 09/03/2016 4:17pm 09/03/2016 4: 21pm Hemoglobin 10.1 GM/DL L 12-16 09/03/2016 4:17pm 09/03/2016 4:21pm Hematocrit 33.5 % L 36-46 09/03/2016 4:17pm 09/03/2016 4:21pm Mean Corpuscular Volume 99.7 UM3 80-100 09/03/2016 4:17pm 09/03/2016 4: 21pm Mean Corpuscular Hemoglobin 30.1 UUG 26-34 09/03/2016 4:17pm 2015 4:21pm Mean Corpuscular Hemoglobin Concent 30.1 GM/DL L 31-37 09/03/2016 4:17pm 09/03/2016 4:21pm RDW Standard Deviation 65.2 FL H 36.9-50.2 09/03/2016 4:17pm 09/03/2016 4:21pm Platelet Count 234 T/MM3 130-400 09/03/2016 4:17pm 09/03/2016 4:21pm Mean Platelet Volume 9.2 UM3 L 9.4-12.4 09/03/2016 4:17pm 09/03/2016 4: 21pm Neutrophils (%) (Auto) 46.4 % 33-66 09/03/2016 4:1709/03/2016 4: 21pm Lymphocytes (%) (Auto) 31.0 % 23-45 09/03/2016 4:1709/03/2016 4: 21pm Monocytes (%) (Auto) 7.7 % 0-9.0 09/03/2016 4:17pm 09/03/2016 4:21pm Eosinophils (%) (Auto) 13.7 % H 0-4 09/03/2016 4:17pm 09/03/2016 4:21pm Basophils (%) (Auto) 1.0 % 0-2 09/03/2016 4:1709/03/2016 4:21pm Immature Granulocyte % (Auto) 0.2 % 0.0-0.5 09/03/2016 4:17pm 2015 4:21pm Absolute Neutrophils (auto) 2.2 T/MM3 1.8-7.7 09/03/2016 4:17pm 2015 4:21pm Absolute Lymphocytes (auto) 1.5 T/MM3 1-4.8 09/03/2016 4:172015 4:21pm Absolute Monocytes (auto) 0.4 T/MM3 0-0.8 09/03/2016 4:17pm 09/03/2016 4:21pm Absolute Eosinophils (auto) 0.7 T/MM3 H 0-0.5 09/03/2016 4:17pm 2015 4:21pm Absolute Basophils (auto) 0.1 T/MM3 0-0.2 09/03/2016 4:17pm 09/03/2016 4:21pm Absolute Immature Granulocyte (auto 0.01 T/MM3 0.00-0.03 09/03/2016 4: 17pm 09/03/2016 4:21pm Prothromb Time International Ratio 1.02 0.99-1.21 09/03/2016 4:17pm 09/03/2016 4:33pm THERAPUTIC RANGE=2.00-3.00 FOR ANTI-THROMBOSIS THERAPUTIC RANGE=2.50-3.50 FOR IMPLANTED VALVE Icterus Index < 2 0-7 09/03/2016 4:17pm 09/03/2016 4:38pm Chemistry Specimen Hemolysis < 15 0-25 09/03/2016 4:17pm 09/03/2016 4 :38pm 0-25: Specimen Exhibited No Hemolysis. Turbidity < 20 0-20 09/03/2016 4:17pm 09/03/2016 4:38pm Sodium Level 143 MEQ/L 134-144 09/03/2016 4:17pm 09/03/2016 4:38pm Potassium Level 4.0 MEQ/L 3.6-5 09/03/2016 4:17pm 09/03/2016 4:38pm Chloride Level 102 MEQ/L 98-107 09/03/2016 4:1709/03/2016 4:38pm Carbon Dioxide Level 32 MEQ/L H 22-30 09/03/2016 4:17pm 09/03/2016 4: 38pm Anion Gap 9 MEQ/L 5-15 09/03/2016 4:17pm 09/03/2016 4:38pm Blood Urea Nitrogen 25.0 MG/DL H 7-17 09/03/2016 4:17pm 09/03/2016 4: 38pm Creatinine 1.3 MG/DL H 0.7-1.2 09/03/2016 4:17pm 09/03/2016 4:38pm BUN/Creatinine Ratio 19 RATIO 6-26 09/03/2016 4:1709/03/2016 4:38pm Glomerular Filtration Rate Calc 39 09/03/2016 4:pm 09/03/2016 4: 38pm Glucose Level 136 MG/DL H 65-110 09/03/2016 4:09/03/2016 4:38pm Calculated Osmolality 281 MOSM/KG H 261-280 09/03/2016 4:2015 4:38pm Calcium Level 9.0 MG/DL 8.4-10.2 09/03/2016 4:09/03/2016 4:38pm Troponin I 0.048 ng/ml 0-0.12 09/03/2016 4:pm 09/03/2016 4:50pm Troponin values with a difference of 55% increase from orginal troponin value represent a true biological DELTA value. (%increase Calc=Orginal Troponin value, divided by subsequent Troponin value, multiplied by 100) TU-Cuc-P-Type Natriuretic Peptide 4950 PG/ML H 0-175 09/03/2016 4:1709/03/2016 4:50pm Rule in cut points: <50 years old=450; 50-75 years old=900; >75 years old=1800; When utilizing ProBNP rule-in cut points, adjustment for impaired renal function is typically not required. Name: WEDNESDAYRUBIN Unit #: [id number] : 1935 Sex: F Admit Date: Loc / Svc: ED Discharge Date: DIAGNOSTIC IMAGING REPORT Report [facility] [id number] [facility].REASON: cough, dyspnea PROCEDURE: CHEST 2-VIEWS UPRIGHT (PA \\T\\ LAT) Encounter: Initial COMPARISON: August 25, 2016 FINDINGS: Moderate left pleural effusion is slightly larger. Continued compressive atelectasis of the left lower lobe. Small right effusion is stable. No pneumothorax. Cardiac silhouette is grossly stable as are the mediastinal contours and pulmonary vascularity. Impression: Slight increase in the moderate left pleural effusion. . Procedures Procedure Status Date Provider(s) ROUTINE VENIPUNCTURE Completed 08/21/16 CHEST X-RAY 1 VIEW FRONTAL Completed 08/21/16 METABOLIC PANEL TOTAL CA Completed 08/21/16 ASSAY OF NATRIURETIC PEPTIDE Completed 08/21/16 ASSAY OF TROPONIN QUANT Completed 08/21/16 COMPLETE CBC W/AUTO DIFF WBC Completed 08/21/16 PROTHROMBIN TIME Completed 08/21/16 ELECTROCARDIOGRAM TRACING Completed 08/21/16 THER/PROPH/DIAG INJ IV PUSH Completed 08/21/16 EMERGENCY DEPT VISIT Completed 08/21/16 [id number] ITEM OR SERVICE Completed 08/21/16 [id number] ITEM OR SERVICE Completed 08/21/16 [id number]"INJECTION, FUROSEMIDE, UP TO 20 MG" Completed 08/21/16 Encounters Encounter Location Arrival/Admit Date Discharge/Depart Date Attending Provider Departed Emergency Room [facility] 09/03/16 3:07pm 09/03/16 6: 27pm DOTTY DAWSON MD Departed Emergency Room [facility] 08/25/16 8:18pm 08/25/16 11: 56pm DOTTY DAWSON MD Departed Emergency Room [facility] 08/21/16 10:34am 08/21/16 2: 30pm MARCHCASSANDRA DO Recent Diagnosis
--- OUTSIDE RECORDS SUMMARY | 2017-01-06 14:49 | XMS REPORT | Continuity of Care Document ---
Author Author [facility] Organization [facility] Address Unknown Phone Unavailable Support Name Relationship Address Phone NELLIE ABDULLAHI MD Caregiver [address] [place] [phone] VARSHA VIDAL DO Caregiver [address] [place] [phone] NELLIEELLIOT POLLACKDY Next Of Kin [address], [place] [address] Insurance Providers Payer Name Policy Number Subscriber Name Relationship Medicare [id number] Wednesday,Rubin Hidalgo 18 Self [place] [employer] [id number] Wednesday,Rubin Hidalgo 18 Self Advance Directives Directive Response Recorded Date/Time Advanced Directives Type Living Will DPOA for Healthcare 05/03/14 11:57am Ordered Resuscitation Status Full Code 05/03/14 3:58pm Resuscitation Documents on File No 05/03/14 11:57am Problems Medical Problems Problem Onset Date Status EXPRESSIVE APHASIA Unknown Active Breast carcinoma 07/03/2014 Active Atrial fibrillation and flutter Unknown Active Medications Medication Dose Route Sig Days/Qty [...] 15 Mg PO BEDTIME 09/18/11 Active Fish Oil/[place]-3 Fatty Acids 1 Cap PO BEDTIME 09/18/11 [...] 01/09/12 Active [Occuvite Vitamin] 1 Tab PO TWICE A DAY 01/09/12 Active Naphazoline Hcl/Peg 300 15 Ml OP DAILY 01/09/12 Active Promethazine Hcl 25 Mg PO Q6H PRN 01/09/12 Active [Morris C] 800 Mg PO DAILY 01/09/12 04/14/13 Discontinued Mirtazapine 15 Mg PO DAILY 0.5 TAB 04/14/13 10/11/13 Discontinued Hydrocodone Bit/Acetaminophen 1 Udtab PO NEEDED 04/14/13 Discontinued Felodipine 10 Mg PO DAILY 04/14/13 07/03/14 Discontinued [Vibryd] 40 Mg DAILY 04/14/13 Active Calcium Carbonate/Vitamin D3 1 Tab PO DAILY 04/14/13 Active Ondansetron Hcl 8 Mg PO NEEDED 04/14/13 Active Lorazepam 0.5 Mg PO NEEDED 04/14/13 10/11/13 Discontinued Promethazine Hcl 25 Mg PO NEEDED 04/14/13 10/11/13 Discontinued Sucralfate 1 G PO DAILY 04/14/13 10/11/13 Discontinued Metronidazole 500 Mg PO DAILY 04/14/13 10/11/13 Discontinued Amoxicillin Trihydrate 500 Mg PO THREE TIMES A DAY 04/14/13 Discontinued Clonazepam 1 Mg PO DAILY 10/11/13 Active Mirtazapine 15 Mg PO BEDTIME 10/11/13 Active Fish Oil/[place]-3 Fatty Acids 1 Cap PO TWICE A DAY 05/03/14 Active Rivaroxaban 20 Mg PO DAILY 05/03/14 07/03/14 Discontinued Levomefolate Calcium 15 Mg PO DAILY 05/03/14 Active [Myrbetriq] 50 Mg PO DAILY] 05/03/14 Active Sotalol HCl 80 Mg PO BEFORE MEALS TWICE A DAY 08/29/14 08/29/14 Discontinued Ibuprofen 4 Cap PO EVERY 12 HOURS PRN 08/29/14 Active Sotalol HCl 120 Mg PO BEFORE MEALS TWICE A DAY 99 Days Take 1 tablet, by mouth, 2 times a day (before meals). 08/29/14 Active Rivaroxaban 20 Mg PO DAILY 08/29/14 Active Clonazepam 0.5 Tab PO DAILY TAKES 1800 09/04/14 Active Social History Social History Problem Response Recorded Date/Time Smoking Status Never smoker 05/03/2014 11:59am Chewing Tobacco Status No 05/03/2014 11:59am Hx Substance Use No 09/04/2014 8:11am Hx Alcohol Use No 09/04/2014 8:11am Has the pt used tobacco in the last 12 months No 09/04/2014 8:11am Query Response Start Date Stop Date Smoking [...] or wound, Call Dr. Sales's office at [phone]. During the evening or on the weekends: If you have questions about your care or wound, Call [facility] at [phone] and have the information operator page Dr. Sales. Condition at time of discharge: Good SEE HEART CATH INSTRUCTIONS Condition at time of discharge: Good Plan of Care Discharge Date 07/03/14 1:22pm Instructions/Education Provided DI for Mastectomy Prescriptions See Medications Section Functional Status Query Response Date Recorded Physical Hygiene Self August 29, 2014 9:50am Physical Hygiene Self August 29, 2014 9:50am Allergies, Adverse Reactions, Alerts Allergen Type Severity Reaction Status Last Updated Morphine Allergy Severe CARDIAC ARREST Active 08/29/14 Immunizations Name Given Type Hx Influenza Vaccination Y FALL 2013 Historical Hx Pneumococcal Vaccination Y WITHIN PAST 5 YEARS Historical Hx Influenza Vaccination Y FALL 2013 Historical Vital Signs Acute Vital Signs Vital Response Date/Time Temperature (Fahrenheit) 98.0 deg F (96.8 - 99.1) Temperature (Calculated Celsius) 36.27623 degrees C (36.0 - 37.3) Temperature Source Temporal Pulse Rate (adult) 58 bpm (60 - 100) Blood Pressure 164/88 mm Hg Blood Pressure Source Automatic Cuff Height 5 ft 5.5 in Weight 152 lb Body Mass Index 25.0 kg/m^2 Results Test Source Date Result Interp. Ref. Range Comments Activated Partial Thromboplast Time September 04, 2014 8:11am 36.8 SEC H 24-36 COMMENT NURSE WILL CALL WHEN PATIENT ARRIVES Alanine Aminotransferase (ALT/SGPT) August 29, 2014 10:13am 36 U/L N 9- 52 Albumin August 29, 2014 10:13am 3.6 G/DL N 3.5-5.0 Albumin/Globulin Ratio August 29, 2014 10:13am 1.2 RATIO N 1.1-2.2 Alkaline Phosphatase August 29, 2014 10:13am 71 U/L N 38-126 Amylase Level April 14, 2013 9:06am 66 U/L N 30-110 Anion Gap September 04, 2014 8:11am 5 MEQ/L N 5-15 COMMENT NURSE WILL CALL WHEN PATIENT ARRIVES Aspartate Amino Transf (AST/SGOT) August 29, 2014 10:13am 28 U/L N 14- 36 B-Type Natriuretic Peptide January 21, 2009 9:10am 435 PG/ML H 15-100 BUN/Creatinine Ratio September 04, 2014 8:11am 19 RATIO N 6-26 COMMENT NURSE WILL CALL WHEN PATIENT ARRIVES Basophils # (Auto) September 04, 2014 8:11am 0.0 T/MM3 N 0-0.2 COMMENT NURSE WILL CALL WHEN PATIENT ARRIVES Basophils (%) (Auto) September 04, 2014 8:11am 0.6 % N 0-2 COMMENT NURSE WILL CALL WHEN PATIENT ARRIVES Blood Urea Nitrogen September 04, 2014 8:11am 21.0 MG/DL H 7-17 COMMENT NURSE WILL CALL WHEN PATIENT ARRIVES Calcium Level September 04, 2014 8:11am 9.4 MG/DL N 8.4-10.2 COMMENT NURSE WILL CALL WHEN PATIENT ARRIVES Calculated Osmolality September 04, 2014 8:11am 275 MOSM/KG N 261-280 COMMENT NURSE WILL CALL WHEN PATIENT ARRIVES Carbon Dioxide Level September 04, 2014 8:11am 32 MEQ/L H 22-30 COMMENT NURSE WILL CALL WHEN PATIENT ARRIVES Chemistry Specimen Hemolysis September 04, 2014 8:11am 105 H 0-25 0-25: No Hemolysis.26-70: Slight Hemolysis - can falsely elevate K and Urine Protein. 71-285: Moderate Hemolysis - can falsely elevate K, Troponin I, CA 19-9, PTH, CSF GLucose, and Urine Protein, and can falsely decrease Phenytoin. 286-999: Gross Hemolysis - can falsely elevate K, Troponin I, CA 19-9, PTH, CSF Glucose, and Urine Protine, and can falsely decrease Phenytoin. Recommend specimen recollection. Chloride Level September 04, 2014 8:11am 105 MEQ/L N 98-107 COMMENT NURSE WILL CALL WHEN PATIENT ARRIVES Creatinine September 04, 2014 8:11am 1.1 MG/DL N 0.7-1.2 COMMENT NURSE WILL CALL WHEN PATIENT ARRIVES EKG January 21, 2009 9:16am Complete - Eosinophils # (Auto) September 04, 2014 8:11am 0.1 T/MM3 N 0-0.5 COMMENT NURSE WILL CALL WHEN PATIENT ARRIVES Eosinophils (%) (Auto) September 04, 2014 8:11am 2.3 % N 0-4 COMMENT NURSE WILL CALL WHEN PATIENT ARRIVES Globulin August 29, 2014 10:13am 2.9 G/DL N 2.4-3.6 Glomerular Filtration Rate Calc September 04, 2014 8:11am 48 - COMMENT NURSE WILL CALL WHEN PATIENT ARRIVES Glucose Level September 04, 2014 8:11am 87 MG/DL N 65-110 COMMENT NURSE WILL CALL WHEN PATIENT ARRIVES Hematocrit September 04, 2014 8:11am 36.0 % N 36-46 COMMENT NURSE WILL CALL WHEN PATIENT ARRIVES Hemoglobin September 04, 2014 8:11am 11.1 GM/DL L 12-16 COMMENT NURSE WILL CALL WHEN PATIENT ARRIVES Icterus Index September 04, 2014 8:11am < 2 0-7 COMMENT NURSE WILL CALL WHEN PATIENT ARRIVES Immature Granulocyte # (Auto) September 04, 2014 8:11am 0.01 T/MM3 N 0.00- 0.03 COMMENT NURSE WILL CALL WHEN PATIENT ARRIVES Immature Granulocyte % (Auto) September 04, 2014 8:11am 0.2 % N 0.0-0.5 COMMENT NURSE WILL CALL WHEN PATIENT ARRIVES Influenza Virus Types A,B Antigen November 06, 2008 11:35am Negative - Lab Scanned Report April 29, 2010 4:50pm LAB TEST FORM REQUEST [id number] - Lipase April 14, 2013 9:06am 45 U/L N 23-300 Lymphocytes # (Auto) September 04, 2014 8:11am 1.4 T/MM3 N 1-4.8 COMMENT NURSE WILL CALL WHEN PATIENT ARRIVES Lymphocytes (%) (Auto) September 04, 2014 8:11am 27.5 % N 23-45 COMMENT NURSE WILL CALL WHEN PATIENT ARRIVES Magnesium Level August 29, 2014 10:13am 2.0 MG/DL N 1.6-2.3 Mean Corpuscular Hemoglobin September 04, 2014 8:11am 28.6 UUG N 26-34 COMMENT NURSE WILL CALL WHEN PATIENT ARRIVES Mean Corpuscular Hemoglobin Concent September 04, 2014 8:11am 30.8 GM/DL L 31-37 COMMENT NURSE WILL CALL WHEN PATIENT ARRIVES Mean Corpuscular Volume September 04, 2014 8:11am 92.8 UM3 N 80-100 COMMENT NURSE WILL CALL WHEN PATIENT ARRIVES Mean Platelet Volume September 04, 2014 8:11am 9.2 UM3 L 9.4-12.4 COMMENT NURSE WILL CALL WHEN PATIENT ARRIVES Monocytes # (Auto) September 04, 2014 8:11am 0.6 T/MM3 N 0-0.8 COMMENT NURSE WILL CALL WHEN PATIENT ARRIVES Monocytes (%) (Auto) September 04, 2014 8:11am 11.2 % H 0-9.0 COMMENT NURSE WILL CALL WHEN PATIENT ARRIVES TE-Cem-I-Type Natriuretic Peptide August 29, 2014 10:13am 4500 PG/ML H 0-175 Rule in cut points: <50 years old=450; 50-75 years old=900; >75 years old=1800; When utilizing ProBNP rule-in cut points, adjustment for impaired renal function is typically not required. Neutrophils # (Auto) September 04, 2014 8:11am 3.0 T/MM3 N 1.8-7.7 COMMENT NURSE WILL CALL WHEN PATIENT ARRIVES Neutrophils (%) (Auto) September 04, 2014 8:11am 58.2 % N 33-66 COMMENT NURSE WILL CALL WHEN PATIENT ARRIVES Platelet Count September 04, 2014 8:11am 277 T/MM3 N 130-400 COMMENT NURSE WILL CALL WHEN PATIENT ARRIVES Potassium Level September 04, 2014 8:11am 5.1 MEQ/L H 3.6-5 COMMENT NURSE WILL CALL WHEN PATIENT ARRIVES Prothromb Time International Ratio September 04, 2014 8:11am 1.62 H 0.81- 1.09 THERAPUTIC RANGE=2.00-3.00 FOR ANTI-THROMBOSIS THERAPUTIC RANGE=2.50- 3.50 FOR IMPLANTED VALVE RDW Standard Deviation September 04, 2014 8:11am 46.9 FL N 36.9-50.2 COMMENT NURSE WILL CALL WHEN PATIENT ARRIVES Red Blood Count September 04, 2014 8:11am 3.88 M/MM3 L 4.00-5.20 COMMENT NURSE WILL CALL WHEN PATIENT ARRIVES Sodium Level September 04, 2014 8:11am 142 MEQ/L N 134-144 COMMENT NURSE WILL CALL WHEN PATIENT ARRIVES Tests Not Done March 16, 2009 3:53pm Not done - Has specimen been collected/obtained? Y Thyroid Stimulating Hormone (TSH) August 29, 2014 10:13am 1.45 MIU/L N 0.47-4.68 Total Bilirubin August 29, 2014 10:13am 0.60 MG/DL N 0.20-1.30 Total Protein August 29, 2014 10:13am 6.5 G/DL N 6.3-8.2 Troponin I August 29, 2014 10:13am 0.033 ng/ml N 0-0.12 Turbidity September 04, 2014 8:11am < 20 0-20 COMMENT NURSE WILL CALL WHEN PATIENT ARRIVES Urinalysis Comment April 14, 2013 9:00am Microscopic [...] Has specimen been collected/obtained? Y Urine Specific [place] April 14, 2013 9:00am 1.015 - Has [...] been collected/ obtained? Y White Blood Count September 04, 2014 8:11am 5.2 T/MM3 N 4.5-11.0 COMMENT NURSE WILL CALL WHEN PATIENT ARRIVES Urine Culture Urine, Straight Cath May 10, 2009 3:00pm Name: WEDNESDAY,RUBIN HIDALGO Unit #: [id number] : 1935 Sex: F Loc / Svc: ED DOS: Signed Report #: [id number] DIAGNOSTIC IMAGING REPORT TYPE OF EXAM: CHEST 1 VIEW Dictated By: SERGEI MOYA MD INDICATION: ITS.REASON: chest discomfort, a fib CHEST 1 VIEW: Comparison: May 04, 2012 and April 14, 2013 Findings: The lungs are stable in appearance without new focal airspace consolidation. Calcified granuloma right lower lobe. There is no pleural effusion or pneumothorax. Emphysema. The heart size, pulmonary vascularity and mediastinal contours are unchanged. IMPRESSION: Stable appearance of the chest without acute cardiopulmonary disease. . Procedures Procedure Status Date Provider(s) MAST MOD RAD completed 07/01/14 EUGENE SALES MD DRAINAGE OF HEMATOMA/FLUID completed 07/01/14 EUGENE SALES MD VASCULAR SURGERY PROCEDURE completed 07/01/14 EUGENE SALES MD Encounters Encounter Location Date/Time Departed Clinic [facility] 09/04/14 7:36am Departed Emergency Room [facility] 08/29/14 9:49am Discharged Inpatient [facility] 07/01/14 10:37am
--- OUTSIDE RECORDS SUMMARY | 2017-01-06 14:49 | XMS REPORT | Continuity of Care Document ---
Author Author [facility] Organization [facility] Address Unknown Phone Unavailable Support Name Relationship Address Phone VARSHA VIDAL DO Caregiver [address] [place] [phone] KATHERIN BRAR MD Caregiver [address] [place] [address] DION BALLARD Next Of Kin [address] [place] [address] Insurance Providers Payer Name Policy Number Subscriber Name Relationship Medicare [id number] Wednesday,Ruibn Hidalgo 18 Self [facility] [id number] Wednesday,Rubin Hidalgo 18 Self Advance Directives Directive [...] 15 Mg PO BEDTIME 09/18/11 Active Fish Oil/[place]-3 Fatty Acids 1 Cap PO BEDTIME 09/18/11 [...] 25 Mg PO Q6H PRN 01/09/12 Active [[place] C] 800 Mg PO DAILY 01/09/12 04/14/13 [...] 15 Mg PO BEDTIME 10/11/13 Active Fish Oil/[place]-3 Fatty Acids 1 Cap PO TWICE A [...] Rivaroxaban 20 Mg PO DAILY 08/29/14 Active Social History Social History Problem Response Recorded Date/Time Smoking Status Never smoker 05/03/2014 11:59am Chewing Tobacco Status No 05/03/2014 11:59am Hx Substance Use No 08/29/2014 9:50am Hx Alcohol Use No 08/29/2014 9:50am Has the pt used tobacco in the [...] or wound, Call Dr. Sales's office at [phone]. During the evening or on the weekends: If you have questions about your care or wound, Call [facility] at [phone] and have the block machine operator page Dr. Sales. Condition at time of discharge: Good General Information: n/a Condition at time of discharge: Good Plan of Care Discharge Date 07/03/14 1:22pm Instructions/Education Provided DI for Mastectomy Prescriptions See Medications Section Functional Status Query Response Date Recorded Physical Hygiene Self August 29, 2014 9:50am Disabilities None August 29, 2014 9:50am Devices Used None August 29, 2014 9:50am Dressing Self August 29, 2014 9:50am Ambulation Self August 29, 2014 9:50am Diet Self August 29, 2014 9:50am Mental Status Alert August 29, 2014 11:21am Disabilities None August 29, 2014 9:50am Devices Used None August 29, 2014 9:50am Physical Hygiene Self August 29, 2014 9:50am Dressing Self August 29, 2014 9:50am Ambulation Self August 29, 2014 9:50am Diet Self August 29, 2014 9:50am Allergies, Adverse [...] F (96.8 - 99.1) Temperature (Calculated Celsius) 36.56971 degrees C (36.0 - 37.3) Pulse Rate (adult) 100 bpm (60 - 100) Respiratory Rate 16 breaths/min (10 - 20) O2 Sat by Pulse Oximetry 99 % (90 - 100) Oxygen Flow Rate 2 L/min Blood Pressure 109/74 mm Hg Height 5 ft 5 in Weight 143 lb Body Mass Index 23.0 kg/m^2 Results Test Source Date Result Interp. Ref. Range Comments Activated Partial Thromboplast Time August 29, 2014 10:13am 35.9 SEC N 24-36 Alanine Aminotransferase (ALT/SGPT) August 29, 2014 10:13am 36 U/L N 9- 52 Albumin August 29, 2014 10:13am 3.6 G/DL N 3.5-5.0 Albumin/Globulin Ratio August 29, 2014 10:13am 1.2 RATIO N 1.1-2.2 Alkaline Phosphatase August 29, 2014 10:13am 71 U/L N 38-126 Amylase Level April 14, 2013 9:06am 66 U/L N 30-110 Anion Gap August 29, 2014 10:13am 8 MEQ/L N 5-15 Aspartate Amino Transf (AST/SGOT) August 29, 2014 10:13am 28 U/L N 14- 36 B-Type Natriuretic Peptide January 21, 2009 9:10am 435 PG/ML H 15-100 BUN/Creatinine Ratio August 29, 2014 10:13am 25 RATIO N 6-26 Basophils # (Auto) August 29, 2014 10:13am 0.0 T/MM3 N 0-0.2 Basophils (%) (Auto) August 29, 2014 10:13am 0.2 % N 0-2 Blood Urea Nitrogen August 29, 2014 10:13am 25.0 MG/DL H 7-17 Calcium Level August 29, 2014 10:13am 9.5 MG/DL N 8.4-10.2 Calculated Osmolality August 29, 2014 10:13am 274 MOSM/KG N 261-280 Carbon Dioxide Level August 29, 2014 10:13am 27 MEQ/L N 22-30 Chloride Level August 29, 2014 10:13am 105 MEQ/L N 98-107 Creatinine August 29, 2014 10:13am 1.0 MG/DL N 0.7-1.2 Eosinophils # (Auto) August 29, 2014 10:13am 0.1 T/MM3 N 0-0.5 Eosinophils (%) (Auto) August 29, 2014 10:13am 2.3 % N 0-4 Globulin August 29, 2014 10:13am 2.9 G/DL N 2.4-3.6 Glucose Level August 29, 2014 10:13am 112 MG/DL H 65-110 Hematocrit August 29, 2014 10:13am 39.3 % N 36-46 Hemoglobin August 29, 2014 10:13am 12.4 GM/DL N 12-16 Influenza Virus Types A,B Antigen November 06, 2008 11:35am Negative - Lipase April 14, 2013 9:06am 45 U/L N 23-300 Lymphocytes # (Auto) August 29, 2014 10:13am 1.3 T/MM3 N 1-4.8 Lymphocytes (%) (Auto) August 29, 2014 10:13am 25.8 % N 23-45 Magnesium Level August 29, 2014 10:13am 2.0 MG/DL N 1.6-2.3 Mean Corpuscular Hemoglobin August 29, 2014 10:13am 28.6 UUG N 26-34 Mean Corpuscular Hemoglobin Concent August 29, 2014 10:13am 31.6 GM/DL N 31-37 Mean Corpuscular Volume August 29, 2014 10:13am 90.8 UM3 N 80-100 Mean Platelet Volume August 29, 2014 10:13am 9.4 UM3 N 9.4-12.4 Monocytes # (Auto) August 29, 2014 10:13am 0.5 T/MM3 N 0-0.8 Monocytes (%) (Auto) August 29, 2014 10:13am 10.0 % H 0-9.0 Neutrophils # (Auto) August 29, 2014 10:13am 3.2 T/MM3 N 1.8-7.7 Neutrophils (%) (Auto) August 29, 2014 10:13am 61.5 % N 33-66 Platelet Count August 29, 2014 10:13am 301 T/MM3 N 130-400 Potassium Level August 29, 2014 10:13am 4.3 MEQ/L N 3.6-5 Prothromb Time International Ratio August 29, 2014 10:13am 1.85 H 0.81- 1.09 THERAPUTIC RANGE=2.00-3.00 FOR ANTI-THROMBOSIS THERAPUTIC RANGE=2.50- 3.50 FOR IMPLANTED VALVE RDW Standard Deviation August 29, 2014 10:13am 45.3 FL N 36.9-50.2 Red Blood Count August 29, 2014 10:13am 4.33 M/MM3 N 4.00-5.20 Sodium Level August 29, 2014 10:13am 140 MEQ/L N 134-144 Tests Not Done March 16, 2009 3:53pm Not done - Has specimen been collected/obtained? Y Thyroid Stimulating Hormone (TSH) August 29, 2014 10:13am 1.45 MIU/L N 0.47-4.68 Total Bilirubin August 29, 2014 10:13am 0.60 MG/DL N 0.20-1.30 Total Protein August 29, 2014 10:13am 6.5 G/DL N 6.3-8.2 Troponin I August 29, 2014 10:13am 0.033 ng/ml N 0-0.12 Urine Bacteria September 10, 2008 2:28pm 1+ [...] Has specimen been collected/obtained? Y Urine Specific [place] April 14, 2013 9:00am 1.015 - Has [...] been collected/ obtained? Y White Blood Count August 29, 2014 10:13am 5.2 T/MM3 N 4.5-11.0 Chemistry Specimen Hemolysis August 29, 2014 10:13am 58 H 0-25 0-25: No Hemolysis.26-70: Slight Hemolysis [...] can falsely decrease Phenytoin. Recommend specimen recollection. Urinalysis Comment April 14, 2013 9:00am Microscopic not ind. - Has specimen been collected/obtained? Y Lab Scanned Report April 29, 2010 4:50pm LAB TEST FORM REQUEST [id number] - EKG January 21, 2009 9:16am Complete - Turbidity August 29, 2014 10:13am < 20 0-20 Glomerular Filtration Rate Calc August 29, 2014 10:13am 53 - Immature Granulocyte # (Auto) August 29, 2014 10:13am 0.01 T/MM3 N 0.00 -0.03 Immature Granulocyte % (Auto) August 29, 2014 10:13am 0.2 % N 0.0-0.5 Icterus Index August 29, 2014 10:13am < 2 0-7 FJ-Feq-C-Type Natriuretic Peptide August 29, 2014 10:13am 4500 PG/ML H 0-175 Rule in cut points: <50 years old=450; 50-75 years old=900; >75 years old=1800; When utilizing ProBNP rule-in cut points, adjustment for impaired renal function is typically not required. Urine Microscopic Not Indicated January 09, 2012 2:04pm Not indicated - Has specimen been collected/obtained? Y Urine Culture Urine, Straight Cath May 10, 2009 3:00pm Name: WEDNESDAYRUBIN Unit #: [id number] : 1935 Sex: F Loc / Svc: ED DOS: Signed Report #: [id number] DIAGNOSTIC IMAGING REPORT TYPE OF EXAM: CHEST [...] SALES MD Encounters Encounter Location Date/Time Departed Emergency Room [facility] 08/29/14 9:49am Discharged Inpatient [facility] 07/01/14 10:37am Recent Diagnosis
--- NOTE | 2017-01-06 15:04 | NUR ---
CM CM into visit with pt. Pt noted to be alert and oriented. Pt's daughter at bedside. Introduced self and explained role of CM such as establishing home health services. Pt denied having discharge needs for home and able to receive help from family if needed. Contact information reviewed and encouraged to contact CM if needed. Pt verbalized an understanding. Addendum: 01/06/17 at 1506 by PAT MCDANIEL RN Amended: Links added.
[2017-01-06] MEDS ORDERED: TEMAZEPAM 15 MG CAPSULE PO PRN (15:15)
[2017-01-06 16:00] VITALS: BP 131/66; PULSE 87; RESP 18; TEMP 98.3; O2SAT 99
--- NOTE | 2017-01-06 16:08 | CONSPD ---
Consultation Info Date DATE: 01/06/17 TIME: 16:04 Date of Consultation: Jan 06, 2017 Attending Physician: Dr. Crooks Reason for Consultation: pulmonary congestion HPI - Adult Date DATE: 01/06/17 TIME: 16:04 General Date of Admission Date of Admission: Jan 06, 2017 at 12:00 Chief Complaint: anemia, acute kidney injury History of Present Illness Wednesday is an 81year old female who was scheduled today for an outpatient CTA and GABRIELA and is well known to Dr. Mckeon. The CTA was performed, but the routine CBC done prior to GABRIELA showed hemoglobin of around 7. She was then admitted to the unit for anemia and a further workup. She reports feeling fine with the exception of some mild nausea and gnawing feeling in her stomach that is a chronic issue. She denies any known source of bleeding, such as chronic epistaxis, bleeding gums, hematochezia, hematemesis, hematuria. She recalls one possible instance of melena about a month ago that resolved after one episode. She denies any chest pain, pressure, palpitations, SOA, dizziness, lightheadedness, fatigue.. Past Medical History Past Medical History Metabolic: hypertension Cardiac: A-fib GI: GERD, IBS, constipation Neurological: migraines Psychological: bipolar, depression Surgical History General: EGD, appendix, colonoscopy, gallbladder Current Medications Home Meds Reported Medications Rivaroxaban (Xarelto) 15 Mg Tablet, 15 MG PO DAILY, TAB Take 1 tablet, by mouth, 2 times a day with meals. 09/15/16 Potassium Chloride (Potassium Chloride) 20 Meq Tablet.er, 20 MEQ PO BID, TAB Take 1 tablet, by mouth, daily with breakfast. 09/15/16 Nitroglycerin (Nitrostat) 0.4 Mg Tablet, 0.4 MG SL Y for PRN ORDERS, TAB 09/15/16 Lansoprazole (Prevacid) Unknown Strength Capsule.dr, PO DAILY, CAP 09/15/16 Sotalol HCl (Sotalol) 80 Mg Tablet, 80 MG PO ACBID, TAB Take 1 tablet, by mouth, 2 times a day (before meals). 09/10/16 Clonazepam (Clonazepam) 0.5 Mg Tab.rapdis, 1 TAB PO TID, TAB 09/10/16 Calcium Carbonate/Vitamin D3 (Caltrate 600 + D Tablet) 1 Each Tablet, 1 TAB DAILY 09/10/16 Polyethylene Glycol 3350 (Polyethylene Glycol 3350) 255 Gm Powder, 17 GM PO DAILY Y for PRN ORDERS, #527 GM 09/10/16 Bumetanide (Bumetanide) 2 Mg Tablet, 1 TAB PO BID, #30 TAB 5 Refills 09/10/16 Multivitamin W/Iron, Minerals (Multivitamins with Iron) 1 Each Tab.chew, 1 TAB PO DAILY 08/21/16 Atorvastatin Calcium (Atorvastatin Calcium) 20 Mg Tablet, 20 MG PO HS 08/21/16 Temazepam (Temazepam) 15 Mg Capsule, 15 MG PO HS Y for ANXIETY 01/04/16 Buspirone HCl (Buspirone HCl) 10 Mg Tablet, 10 MG PO BID 01/04/16 Vilazodone Hydrochloride (Viibryd) 40 Mg Tablet, 40 MG PO DAILY 10/11/15 Mirtazapine (Mirtazapine) 45 Mg Tablet, 45 MG PO HS 10/11/15 Allergies: Coded Allergies: morphine (Verified Allergy, Severe, CARDIAC ARREST, 01/06/17) Family History FOUND: other Vaccines AUG 2016 PCV13 01/06/17 WITHIN PAST 5 YEARS 10/11/15 Social History Smoking Status: Never smoker Substance Use Type: does not use Alcohol Intake: none Housing: house Advance Directives: Yes DPOA for Healthcare Only, Yes Full Code Review of Systems Constitutional: REPORTS: appetite decrease, DENIES: chills, dizziness, fatigue , fever, weakness, weight gain, weight loss ENMT Sinuses: NOT FOUND: congestion, rhinorrhea Nose: NOT FOUND: nosebleeds Mouth/Throat: DENIES: bleeding gums, sore throat Cardiovascular DENIES: chest pain, dyspnea on exertion Rhythm/Rate: DENIES: irregular beat, palpitations Vascular: DENIES: pedal edema Pulmonary Respiratory: dyspnea (mild, chronic), DENIES: cough, pleuritic chest pain, sputum GI Upper Abdomen: nausea, DENIES: heartburn/indigestion, hematemesis, vomiting Lower Abdomen: DENIES: blood in stool, constipation, diarrhea, melena General: DENIES: burning, dysuria, frequency, hematuria, urgency Female: DENIES: other (denies vaginal bleeding) Musculoskeletal General: DENIES: joint pain, weakness Neurological General: DENIES: headache, numbness, tingling, weakness Psychiatric Psychiatric: anxiety, nervousness, DENIES: depression Endocrine DENIES: heat/cold intolerance Hematologic/Lymphatic DENIES: bleeding gums, easy bruising, frequent nosebleeds Physical Exam General General Nourishment: well nourished, well developed, apparent age, adult General Body Habitus: well groomed Vital Signs Vital Signs Date Time Temp Pulse Resp B/P Pulse Ox O2 Delivery O2 Flow Rate FiO2 01/06/17 16:00 98.3 87 18 131/66 99 Nasal Cannula 3.00 Height (Feet): 5 Height (Inches): 5.00 Eyes Brief: FOUND: EOMI, PERRL ENMT Brief: FOUND: mucosa moist Neck Brief: FOUND: JVD (mild), NOT FOUND: adenopathy, carotid bruits, thyromegaly Respiratory Brief: FOUND: equal bilaterally, other (L rhonchi at base), NOT FOUND: rales, wheezes Cardiovascular (brief) Cardiac Brief: FOUND: murmur (holosystolic ROSANGELA grade 2/6 at L lower sternal border), regular rate, regular rhythm, NOT FOUND: pedal edema, peripheral edema Abdomen (brief) Abdominal Brief: FOUND: BS normo active x4, soft, tender (mild TTP to epigastric region), NOT FOUND: distended Integumentary (brief) Integumentary Brief: FOUND: dry, pink, warm Neurologic (brief) Neurological Brief: FOUND: cranial 2-12 intact, motor (no significant deficits) , sensory (no significant deficits), NOT FOUND: facial droop, ptosis Neurologic RN Documented GCS Eye Opening: Verbal: Motor: Total: Psychiatric (brief) FOUND: attentive, normal affect Laboratory Laboratory Tests Test 01/06/17 10:11 01/06/17 11:45 White Blood Count 4.6T/MM3 4.8T/MM3 Red Blood Count 3.20M/MM3 3.15M/MM3 Hemoglobin 7.2GM/DL 7.0GM/DL Hematocrit 26.4% 25.9% Mean Corpuscular Volume 82.5UM3 82.2UM3 Mean Corpuscular Hemoglobin 22.5UUG 22.2UUG Mean Corpuscular Hemoglobin Concent 27.3GM/DL 27.0GM/DL RDW Standard Deviation 47.9FL 47.2FL Platelet Count 244T/MM3 227T/MM3 Mean Platelet Volume 9.8UM3 9.6UM3 Immature Granulocyte % (Auto) 0.0% Neutrophils (%) (Auto) 49.7% Lymphocytes (%) (Auto) 36.2% Monocytes (%) (Auto) 9.0% Eosinophils (%) (Auto) 4.2% Basophils (%) (Auto) 0.9% Absolute Immature Granulocyte (auto 0.00T/MM3 Absolute Neutrophils (auto) 2.3T/MM3 Absolute Lymphocytes (auto) 1.7T/MM3 Absolute Monocytes (auto) 0.4T/MM3 Absolute Eosinophils (auto) 0.2T/MM3 Absolute Basophils (auto) 0.0T/MM3 Prothromb Time International Ratio 1.38 Turbidity < 20 Sodium Level 143MEQ/L Potassium Level 4.4MEQ/L Chloride Level 100MEQ/L Carbon Dioxide Level 35MEQ/L Anion Gap 8MEQ/L Blood Urea Nitrogen 31.0MG/DL Creatinine 1.6MG/DL Glomerular Filtration Rate Calc 31 BUN/Creatinine Ratio 19RATIO Glucose Level 104MG/DL Calculated Osmolality 282MOSM/KG Calcium Level 9.3MG/DL Magnesium Level 2.4MG/DL Total Bilirubin 0.50MG/DL Icterus Index < 2 Aspartate Amino Transf (AST/SGOT) 40U/L Alanine Aminotransferase (ALT/SGPT) 35U/L Alkaline Phosphatase 83U/L Total Protein 6.6G/DL Albumin 3.7G/DL Globulin 2.9G/DL Albumin/Globulin Ratio 1.3RATIO Thyroid Stimulating Hormone (TSH) 3.15uIU/mL Chemistry Specimen Hemolysis < 15 Neutrophils % (Manual) 39.0% Band Neutrophils % 1.0% Lymphocytes % (Manual) 45.0% Monocytes % (Manual) 11.0% Eosinophils % (Manual) 4.0% Absolute Neutrophils (Manual) 1.9T/MM3 Band Neutrophils # 0.0T/MM3 Lymphocytes # (Manual) 2.2T/MM3 Monocytes # (Manual) 0.5T/MM3 Eosinophils # (Manual) 0.2T/MM3 Red Cell Morphology Comment Normal Radiology CTA 01/06/17: Impression 1. No pulmonary embolus. 2. Small bilateral pleural effusions and evidence of right heart insufficiency. 3. Severe cardiomegaly. Impression/Recommendation Impression 1. R CHF with severe pulmonary hypertension 2. Severe Tricuspid Regurgitation 3. Valvular heart disease 4. 2+ Mitral regurgitation and aortic insufficiency 5. Paroxysmal atrial fibrillation, currently in sinus rhythm 6. CAD sp CABG 7. Post op recurrent pleural effusions Recommendation 1. Admit to unit for anemia and further evaluation. 2. Discontinue Bumex due to acute kidney injury. 3. Discontinue Xarelto due to acute anemia. 4. Discontinue KCl due to acute kidney injury. 4. Give NS bolus for fluid resuscitation. 5. Anemia workup per hospitalist plan of care. 6. Hold cardiac workup until further notice. Thank you for allowing us to participate in the cardiac care of your patient. This patient was examined and assessed by Dr. Mckeon and myself. CAPO Murillo NICOLE E Jan 06, 2017 16:08
[2017-01-06] MEDS: POTASSIUM CHLORIDE 20 MEQ TABLET PO SCH ×2 (17:30→17:41)
[2017-01-06] MEDS ORDERED: NORMAL SALINE 500 ML IV SCH (17:35)
[2017-01-06] MEDS: BUMETANIDE 1 MG TABLET PO SCH ×2 (17:40→17:47)
[2017-01-06 19:53] VITALS: PULSE 64; RESP 18
[2017-01-06] MEDS: SOTALOL 80 MG TABLET PO SCH (20:48)
--- NOTE | 2017-01-06 20:48 | NUR ---
BLOOD TRANSFUSION BLOOD TRANSFUSION STARTED AT 2032, BASELINE VITALS STABLE ON 3L 02 THAT PATIENT ALSO WEARS AT HOME. 15 MIN VITALS ALSO STABLE ON 3L 02. WILL CONTINUE TO MONITOR.
[2017-01-06] MEDS: CLONAZEPAM 0.5 MG TABLET PO SCH (21:23)
[2017-01-06] MEDS ORDERED: MIRTAZAPINE 45 MG TABLET PO SCH (22:00)
[2017-01-06] MEDS ORDERED: ATORVASTATIN 20 MG TABLET PO SCH (22:00)
[2017-01-06 23:42] VITALS: BP 113/53; PULSE 51; RESP 18; TEMP 98.3; O2SAT 98
[2017-01-07 00:20] LABS: HGB - HEMOGLOBIN 7.6 GM/DL (12-16)
--- NOTE | 2017-01-07 00:23 | NUR ---
LAB POST TRANSFUSION HGB IS 7.6 UP FROM 7.0, DR NOTIFIED OF LAB AND STATES TO MONITOR WITH AM LABS. NOTIFY HIM OF LABS AT THAT TIME. WILL CONTINUE TO MONITOR.
[2017-01-07 05:08] LABS: BASOPHILS % (AUTO) 0.4 % (0-2); EOSINOPHILS # (AUTO) 0.3 T/MM3 (0-0.5); EOSINOPHILS % (AUTO) 5.5 % (0-4); HCT - HEMATOCRIT 26.7 % (36-46); HGB - HEMOGLOBIN 7.4 GM/DL (12-16); LYMPHOCYTES # (AUTO) 1.2 T/MM3 (1-4.8); LYMPHOCYTES % (AUTO) 23.2 % (23-45); MEAN CORPUSCULAR HGB 23.2 UUG (26-34); MEAN CORPUSCULAR HGB CONC(MCHC 27.7 GM/DL (31-37); MEAN CORPUSCULAR VOLUME 83.7 UM3 (80-100); MONOCYTES # (AUTO) 0.6 T/MM3 (0-0.8); MONOCYTES % (AUTO) 11.3 % (0-9.0); NEUTROPHILS #(AUTO)-ABSOLUTE 3.1 T/MM3 (1.8-7.7); NEUTROPHILS % (AUTO) 59.6 % (33-66); RED BLOOD COUNT 3.19 M/MM3 (4.00-5.20); WBC - WHITE BLOOD COUNT 5.1 T/MM3 (4.5-11.0)
[2017-01-07 05:14] LABS: ANION GAP 7 MEQ/L (5-15); BUN/CREATININE RATIO 22 RATIO (6-26); CALCIUM 8.7 MG/DL (8.4-10.2); CHLORIDE 105 MEQ/L (98-107); CO2 - CARBON DIOXIDE 30 MEQ/L (22-30); CREATININE 1.2 MG/DL (0.7-1.2); GLOMERULAR FILTRATION RATE 43; GLUCOSE 103 MG/DL (65-110); POTASSIUM 4.2 MEQ/L (3.6-5); SODIUM 142 MEQ/L (134-144)
--- NOTE | 2017-01-07 05:14 | NUR ---
MORNING LAB MORNING LAB HGB IS 7.[address] NOTIFIED AND THIS RN IS INSTRUCTED TO CONTINUE TO MONITOR AND NOT TRANSFUSE AT THIS TIME. WILL CONTINUE TO MONITOR.
--- NOTE | 2017-01-07 05:15 | NUR ---
SHIFT SUMMARY PT ALERT AND ORIENTED X 3. VITAL SIGNS STABLE ON 3L 02 THAT PT NORMALLY WEARS AT HOME. PT DENIES C/P,N/V AND SOA. PT UP TO BATHROOM ONCE ON SHIFT. PT RECEIVED 1 UNIT OF BLOOD ON THIS SHIFT, ANOTHER IS AVAILABLE IF NEEDED. PT HAS SLEPT THROUGH THE NIGHT. WILL CONTINUE TO MONITOR.
[2017-01-07] MEDS: SOTALOL 80 MG TABLET PO SCH (05:41)
[2017-01-07] MEDS ORDERED: PANTOPRAZOLE 40 MG TABLET PO SCH (06:30)
[2017-01-07 08:03] VITALS: BP 116/69; PULSE 56; RESP 20; TEMP 98.2; O2SAT 94
[2017-01-07] MEDS: NORMAL SALINE 1,000 ML IV SCH (08:19)
[2017-01-07] MEDS ORDERED: NORMAL SALINE 500 ML IV SCH (08:24)
[2017-01-07] MEDS ORDERED: CALCIUM 600mg + VIT D 400 TABLET PO SCH (09:00)
[2017-01-07] MEDS ORDERED: POLYETHYL.GLYCOL 3350 PACKET 17gm PO PRN (09:00)
[2017-01-07] MEDS ORDERED: IRON PO SCH (09:00)
[2017-01-07] MEDS ORDERED: MULTIVITAMIN PO SCH (09:00)
[2017-01-07] MEDS ORDERED: FAMOTIDINE 20 MG TABLET PO SCH (09:00)
[2017-01-07] MEDS ORDERED: VILAZODONE 40 MG TABLET PO SCH (09:00)
--- NOTE | 2017-01-07 09:09 | PNPDOC ---
Subjective Date DATE: 01/07/17 TIME: 09:03 Subjective Pt is sitting up in her chair eating breakfast, in no acute distress upon my evaluation. She is in good spirits and feels fine with the exception of some continued epigastric discomfort/nausea. Denies angina, chest pressure, palpitations, SOA. She received a unit of blood last night and was getting another one at the time of my visit. She reports not feeling any different with the transfusion. Denies any fatigue, dizziness, lightheadedness. She ambulates without SOA, dizziness, or angina. Objective Vital Signs Vital signs Vital Signs 01/06/17 01/06/17 01/07/17 01/07/17 21:14 23:42 05:41 08:03 Temp 98.3 98.2 Pulse 51 58 56 Resp 18 20 B/P 113/53 116/69 Pulse Ox 98 94 O2 Delivery Room Air Nasal Cannula Nasal Cannula O2 Flow Rate 3.00 3.00 Telemetry Rhythm: Sinus Rhythm Height (Feet): 5 Height (Inches): 5.00 Weight (Kilograms): 76.800 General Alert, Orientated x 3, Well Nourished, Well Developed, Cooperative, No Acute Distress Eyes (Brief) EOMI, PERRL ENMT (Brief) mucosa moist Neck (Brief) NOT FOUND: JVD, adenopathy, carotid bruits, thyromegaly Respiratory (Brief) clear all batista, equal bilaterally Cardiovascular (Brief) murmur (holosystolic ROSANGELA grade 2/6 heard at L lower sternal border), regular rate, regular rhythm, NOT FOUND: carotid bruits, click, gallop, pedal edema, rub Abdomen (Brief) BS normo active x4, soft, tender (mild epigastric TTP), NOT FOUND: distended Integumentary (Brief) dry, other (well healed scar consistent with open heart sx), pink, warm Neurologic (Brief) FOUND: cranial 2-12 intact, NOT FOUND: facial droop, ptosis Psychiatric (Brief) attentive, normal affect Laboratory Laboratory Laboratory Tests 01/06/17 10:11 01/07/17 04:19 Laboratory Tests 01/06/17 10:11 01/06/17 11:45 01/06/17 23:58 01/07/17 04:19 EKG EKG 01/06/17 shows sinus rhythm. Radiology CTA 01/06/17 Impression: 1. No pulmonary embolus. 2. Small bilateral pleural effusions and evidence of right heart insufficiency. 3. Severe cardiomegaly. Assessment & Plan Assessment 1. R CHF with severe pulmonary hypertension 2. Severe Tricuspid Regurgitation 3. Valvular heart disease 4. 2+ Mitral regurgitation and aortic insufficiency 5. Paroxysmal atrial fibrillation, currently in sinus rhythm 6. CAD sp CABG 7. Post op recurrent pleural effusions 8. Anemia, improving Plan/Intensity of Service 1. Discontinue Xarelto and ASA indefinitely until source of bleeding is found. 2. Restart Bumex 2 mg daily. 3. From a cardiac standpoint, patient is able to undergo EGD and colonoscopy if needed. 4. Monitor for adequate fluid status. 5. Concur with hospitalist plan of care for non-cardiac issues. 6. Hold cardiac workup until further notice. Follow up in cardiovascular clinic in 1 month as scheduled. 7. Follow up with PCP in 1 week. I will be following this patient PRN for the next few days if she remains inpatient as she is stable from a cardiac standpoint. Please call with any cardiac concerns. Thank you for allowing us to participate in the cardiac care of your patient. This patient was examined and assessed by Dr. Mckeon and myself. CAPO Murillo NICOLE E Jan 07, 2017 09:06
[2017-01-07] MEDS ORDERED: BUMETANIDE 1 MG TABLET PO SCH (09:45)
[2017-01-07] MEDS: CLONAZEPAM 0.5 MG TABLET PO SCH (10:22)
--- NOTE | 2017-01-07 12:16 | NUR ---
CM CM IN TO VISIT PATIENT, SHE CONFIRMS THAT SHE PLANS TO DISCHARGE HOME, DENIES ANY DISCHARGE NEEDS. PAT VISITS DAILY AND DAUGHTER, DION IS POSSIBLY TAKING A SHORT LEAVE SO SHE CAN STAY WITH HER WELL. CM CONTACT INFORMATION GIVEN.
[2017-01-07 12:34] VITALS: PULSE 56; RESP 20
[2017-01-07 13:43] VITALS: PULSE 69
[2017-01-07] MEDS ORDERED: LANS30CA50 PO (16:07)
[2017-01-07] MEDS ORDERED: BUME2TAB18 PO (16:07)
[2017-01-07] MEDS ORDERED: POTA-81 PO (16:07)
--- NOTE | 2017-01-07 17:25 | NUR ---
DISCHARGE NOTE PT WAS DISCHARGE FROM THE HOSPITAL AT THIS TIME, ACCOMPANIED BY FAMILY. PT ALERT AND ORIENTED X3. VITAL SIGNS STABLE. PT RECEIVED TRANSFUSION EARLIER IN SHIFT, HEMOGLOBIN RECHECKED AT 9.0. PT LEFT THROUGH THE MAIN ENTRANCE VIA WHEELCHAIR ON HOME OXYGEN AT 3L PER NC. THIS RN WENT OVER DISCHARGE PAPERWORK WITH THE PT, INCLUDING DISCHARGE DIET, ACTIVITY, MEDICATIONS, FOLLOW-UP APPOINTMENTS. PT VERBALIZED UNDERSTANDING. NO CONCERNS NOTED AT THIS TIME.
--- NOTE | 2017-01-07 17:57 | DSPDOC ---
General Date Date DATE: 01/07/17 TIME: 17:42 Attending Physician Vianca Crooks MD Admitting Physician Vianca Crooks MD Consulting Physician Nellie Mckeon MD Admitting Diagnosis ANEMIA; ACUTE KIDNEY INJURY Discharge Diagnosis 1. Microcytic anemia, likely iron deficient 2. Acute on chronic kidney disease-stage III 3. GERD, history of peptic ulcer disease, possible recent upper GI bleed 4. Coronary artery disease 5. Valvular heart disease 6. Pulmonary hypertension 7. Paroxysmal atrial fibrillation 8. History CVA Procedures Transfusion of 2 units packed red blood cells Laboratory Laboratory Tests Test 01/06/17 10:11 01/06/17 11:45 01/06/17 18:16 01/06/17 23:58 White Blood Count 4.6T/MM3 (4.5-11.0) 4.8T/MM3 (4.5-11.0) Red Blood Count 3.20M/MM3 (4.00-5.20) 3.15M/MM3 (4.00-5.20) Hemoglobin 7.2GM/DL (12-16) 7.0GM/DL (12-16) 7.6GM/DL (12-16) Hematocrit 26.4% (36-46) 25.9% (36-46) Mean Corpuscular Volume 82.5UM3 (80-100) 82.2UM3 (80-100) Mean Corpuscular Hemoglobin 22.5UUG (26-34) 22.2UUG (26-34) Mean Corpuscular Hemoglobin Concent 27.3GM/DL (31-37) 27.0GM/DL (31-37) RDW Standard Deviation 47.9FL (36.9-50.2) 47.2FL (36.9-50.2) Platelet Count 244T/MM3 (130-400) 227T/MM3 (130-400) Mean Platelet Volume 9.8UM3 (9.4-12.4) 9.6UM3 (9.4-12.4) Immature Granulocyte % (Auto) 0.0% (0.0-0.5) Neutrophils (%) (Auto) 49.7% (33-66) Lymphocytes (%) (Auto) 36.2% (23-45) Monocytes (%) (Auto) 9.0% (0-9.0) Eosinophils (%) (Auto) 4.2% (0-4) Basophils (%) (Auto) 0.9% (0-2) Absolute Immature Granulocyte (auto 0.00T/MM3 (0.00-0.03) Absolute Neutrophils (auto) 2.3T/MM3 (1.8-7.7) Absolute Lymphocytes (auto) 1.7T/MM3 (1-4.8) Absolute Monocytes (auto) 0.4T/MM3 (0-0.8) Absolute Eosinophils (auto) 0.2T/MM3 (0-0.5) Absolute Basophils (auto) 0.0T/MM3 (0-0.2) Prothromb Time International Ratio 1.38 (0.76-1.04) Turbidity < 20 (0-20) Sodium Level 143MEQ/L (134-144) Potassium Level 4.4MEQ/L (3.6-5) Chloride Level 100MEQ/L (98-107) Carbon Dioxide Level 35MEQ/L (22-30) Anion Gap 8MEQ/L (5-15) Blood Urea Nitrogen 31.0MG/DL (7-17) Creatinine 1.6MG/DL (0.7-1.2) Glomerular Filtration Rate Calc 31 BUN/Creatinine Ratio 19RATIO (6-26) Glucose Level 104MG/DL (65-110) Calculated Osmolality 282MOSM/KG (261-280) Calcium Level 9.3MG/DL (8.4-10.2) Magnesium Level 2.4MG/DL (1.6-2.3) Total Bilirubin 0.50MG/DL (0.20-1.30) Icterus Index < 2 (0-7) Aspartate Amino Transf (AST/SGOT) 40U/L (14-36) Alanine Aminotransferase (ALT/SGPT) 35U/L (9-52) Alkaline Phosphatase 83U/L (38-126) Total Protein 6.6G/DL (6.3-8.2) Albumin 3.7G/DL (3.5-5.0) Globulin 2.9G/DL (2.4-3.6) Albumin/Globulin Ratio 1.3RATIO (1.1-2.2) Thyroid Stimulating Hormone (TSH) 3.15uIU/mL (0.35-4.94) Chemistry Specimen Hemolysis < 15 (0-25) Neutrophils % (Manual) 39.0% (33-66) Band Neutrophils % 1.0% (0-6) Lymphocytes % (Manual) 45.0% (23-45) Monocytes % (Manual) 11.0% (0-9.0) Eosinophils % (Manual) 4.0% (0-4) Absolute Neutrophils (Manual) 1.9T/MM3 (1.8-7.7) Band Neutrophils # 0.0T/MM3 Lymphocytes # (Manual) 2.2T/MM3 (1-4.8) Monocytes # (Manual) 0.5T/MM3 (0-0.8) Eosinophils # (Manual) 0.2T/MM3 (0-0.5) Red Cell Morphology Comment Normal Test 01/07/17 04:19 01/07/17 11:57 White Blood Count 5.1T/MM3 (4.5-11.0) Red Blood Count 3.19M/MM3 (4.00-5.20) Hemoglobin 7.4GM/DL (12-16) 9.0GM/DL (12-16) Hematocrit 26.7% (36-46) Mean Corpuscular Volume 83.7UM3 (80-100) Mean Corpuscular Hemoglobin 23.2UUG (26-34) Mean Corpuscular Hemoglobin Concent 27.7GM/DL (31-37) RDW Standard Deviation 48.2FL (36.9-50.2) Platelet Count 207T/MM3 (130-400) Mean Platelet Volume 10.0UM3 (9.4-12.4) Immature Granulocyte % (Auto) 0.0% (0.0-0.5) Neutrophils (%) (Auto) 59.6% (33-66) Lymphocytes (%) (Auto) 23.2% (23-45) Monocytes (%) (Auto) 11.3% (0-9.0) Eosinophils (%) (Auto) 5.5% (0-4) Basophils (%) (Auto) 0.4% (0-2) Absolute Immature Granulocyte (auto 0.00T/MM3 (0.00-0.03) Absolute Neutrophils (auto) 3.1T/MM3 (1.8-7.7) Absolute Lymphocytes (auto) 1.2T/MM3 (1-4.8) Absolute Monocytes (auto) 0.6T/MM3 (0-0.8) Absolute Eosinophils (auto) 0.3T/MM3 (0-0.5) Absolute Basophils (auto) 0.0T/MM3 (0-0.2) Turbidity < 20 (0-20) Sodium Level 142MEQ/L (134-144) Potassium Level 4.2MEQ/L (3.6-5) Chloride Level 105MEQ/L (98-107) Carbon Dioxide Level 30MEQ/L (22-30) Anion Gap 7MEQ/L (5-15) Blood Urea Nitrogen 26.0MG/DL (7-17) Creatinine 1.2MG/DL (0.7-1.2) Glomerular Filtration Rate Calc 43 BUN/Creatinine Ratio 22RATIO (6-26) Glucose Level 103MG/DL (65-110) Calculated Osmolality 278MOSM/KG (261-280) Calcium Level 8.7MG/DL (8.4-10.2) Icterus Index < 2 (0-7) Chemistry Specimen Hemolysis < 15 (0-25) Radiology CT angiogram of the lungs on date of admission demonstrated no evidence of pulmonary embolism, small bilateral pleural effusions and evidence of right heart failure, severe cardiomegaly. History of Present Illness Patient is an 81-year-old female who presented to [facility] today for scheduled GABRIELA under the care of Dr. Mckeon. Preoperative lab revealed anemia with a hemoglobin of 7.0. WBC 4.8, hemoglobin 25.9. Sodium is 143, potassium 4.4, BUNs 31, creatinine 1.6, catheter osmology 282, magnesium 2.4, AST 40. Her last reported creatinine was in September 2016 in which it was 1.2. Given the findings of anemia, accompanied with acute kidney injury. The GABRIELA was canceled and the hospitalist services were contacted for admission for further evaluation and workup. Patient is seen on initial examination with her daughter at the bedside. She is alert and oriented and pleasant. She has been on Xarelto long-term for history of atrial fibrillation. She denies having a history of GI bleeding, however, does report several weeks ago. She did note one episode where her stool was black in color. She also describes having an ongoing intermittent nausea, feeling throughout her abdomen, however, denies vomiting or hemoptysis. Admission vital signs to between 98.1, pulse 63, blood pressure 138/73, pulse ox 96% on 3 liters. Hospital Course Wednesday was hospitalized for observation basis after she was found to have a hemoglobin of 7 and creatinine of 1.6 following CTA of the lungs. She was tentatively scheduled for GABRIELA however procedure was canceled. She was transfused with 1 unit packed red blood cells on the date of admission with hemoglobin rising to 7.6 and repeating at 7.4 on the morning of 01/07. A second unit of blood was administered at that time with follow-up hemoglobin 9.0. Patient was asymptomatic other than chronic exertional dyspnea. Iron studies are pending at discharge but iron deficiency as suggested by microcytosis. Hemoccult was ordered however not obtained during the hospitalization. Patient described an isolated black stool several weeks ago, chronic upper abdominal discomfort but not indigestion or reflux, and has a known history of peptic disease. It's likely that she has chronic GI blood loss which has been aggravated by use of Xarelto. Xarelto was discontinued pending further GI evaluation and she is to see Dr. Vidal next week to coordinate EGD and possible colonoscopy prior to resumption of anticoagulation. Iron therapy was not initiated this time to avoid confusion over dark stools pending further evaluation. Creatinine was elevated on admission at 1.6, Bumex was held on admission but resumed on 01/07 at half her prior dose. Patient is advised to monitor her weight daily and contact her managing physicians should wait began to climb. Potassium dose was also cut in half. She was hydrated gently in conjunction to blood transfusion and creatinine dropped to 1.2 on 01/07. Ambulatory oximetry was obtained on the date of discharge demonstrating need for 3 L supplemental oxygen with activities. Patient is previously been prescribed oxygen for home use but acknowledged that she is inconsistent using it with activities as it is cumbersome for her to use with her walker. At rest 2 L supplemental oxygen was adequate. Patient was felt stable for discharge on the afternoon of 01/07. She is to follow- up with Dr. Vidal within 1 week and have blood work reassessed (CBC and BMP); she'll follow-up with Dr. Mckeon in one month. Discharged home with assistance of her daughter. Problems: (1) Anemia Status: Acute (2) Acute kidney injury Status: Acute Assessment & Plan: Baseline creatinine appears to be 1-1.2 (3) Respiratory failure with hypoxia (4) Atrial fibrillation Status: Chronic (5) Chronic anticoagulation Status: Chronic Assessment & Plan: Xarelto (6) Hx of breast cancer (7) Bipolar 1 disorder Status: Chronic (8) Depression Status: Chronic (9) Pulmonary hypertension Status: Chronic (10) HTN (hypertension) Status: Chronic (11) GERD (gastroesophageal reflux disease) Status: Chronic (12) IBS (irritable bowel syndrome) Status: Chronic (13) Constipation Status: Chronic (14) History of CVA with residual deficit Status: Resolved Code Status Full Code Home Meds Active Scripts Lansoprazole (Prevacid) 30 Mg Capsule.dr, 1 CAP PO BID for 30 Days, #60 CAP Prov:VIANCA CROOKS MD 01/07/17 Potassium Chloride (Potassium Chloride) 20 Meq Tablet.er, 20 MEQ PO DAILY, #30 TAB Take 1 tablet, by mouth, daily with breakfast. Prov:VIANCA CROOKS MD 01/07/17 Bumetanide (Bumetanide) 2 Mg Tablet, 1 TAB PO DAILY, #30 TAB 5 Refills Prov:VIANCA CROOKS MD 01/07/17 Reported Medications Nitroglycerin (Nitrostat) 0.4 Mg Tablet, 0.4 MG SL Y for PRN ORDERS, TAB 09/15/16 Sotalol HCl (Sotalol) 80 Mg Tablet, 80 MG PO ACBID, TAB Take 1 tablet, by mouth, 2 times a day (before meals). 09/10/16 Clonazepam (Clonazepam) 0.5 Mg Tab.rapdis, 1 TAB PO TID, TAB 09/10/16 Calcium Carbonate/Vitamin D3 (Caltrate 600 + D Tablet) 1 Each Tablet, 1 TAB DAILY 09/10/16 Polyethylene Glycol 3350 (Polyethylene Glycol 3350) 255 Gm Powder, 17 GM PO DAILY Y for PRN ORDERS, #527 GM 09/10/16 Multivitamin W/Iron, Minerals (Multivitamins with Iron) 1 Each Tab.chew, 1 TAB PO DAILY 08/21/16 Atorvastatin Calcium (Atorvastatin Calcium) 20 Mg Tablet, 20 MG PO HS 08/21/16 Temazepam (Temazepam) 15 Mg Capsule, 15 MG PO HS Y for ANXIETY 01/04/16 Buspirone HCl (Buspirone HCl) 10 Mg Tablet, 10 MG PO BID 01/04/16 Vilazodone Hydrochloride (Viibryd) 40 Mg Tablet, 40 MG PO DAILY 10/11/15 Mirtazapine (Mirtazapine) 45 Mg Tablet, 45 MG PO HS 10/11/15 Discontinued Reported Medications Rivaroxaban (Xarelto) 15 Mg Tablet, 15 MG PO DAILY, TAB Take 1 tablet, by mouth, 2 times a day with meals. 09/15/16 Lansoprazole (Prevacid) Unknown Strength Capsule.dr, PO DAILY, CAP 09/15/16 Face to Face Encounter I met with patient on the day of dismissal and discussed follow up appointments , medications, and safety plan. Discharge Disposition Home with family assistance Copies To 1: NELLIE MCKEON MD; VARSHA VIDAL DO Documentation Requirements Documenting Diagnosis Anemia, CHF CHF Type and Acuity Type of CHF: Diastolic, Valvular Heart Disease Acuity CHF: Chronic Chronic Kidney Disease Stage of CKD: Stage 3 GFR 30-59 Anemia Anemia Etiology: Iron Deficiency Anemia Acuity: Unable to Determine (chronic blood loss probable) Renal Insufficiency Renal Insufficiency: Acute on Chronic Renal Failure Classification of CKD: Stage 3 GFR 30-59 VIANCA CROOKS MD Jan 07, 2017 17:54
[2017-01-08 01:14] LABS: IRON 20 UG/DL (37-170)
[2017-01-08 01:24] LABS: IRON % SAT (TRANSF %SAT)(CALC) 5 % (9-55); TOTAL IRON BINDING CAPACITY 408 UG/DL (261-497)
[2017-01-08] MEDS ORDERED: POTASSIUM CHLORIDE 10 MEQ TABLET PO SCH (08:00)
--- NOTE | 2017-01-11 14:53 | NUR ---
ATTEMPTED FOLLOW UP CALL #1. LEFT VM FOR PT TO CONTACT CM.
[2017-02-01] MEDS ORDERED: POTA-81 PO (11:26)
[2017-02-01] MEDS ORDERED: BUME2TAB18 PO (11:27)
== END 2017-01-07 17:25 | disposition home or self-care (01) ==
LOC: IMA 08:45 → SRG 08:48 → IMA 11:59 → SRG 12:00
PROVIDERS: ADMIT Internal Medicine; ATTEND Internal Medicine
DX: D50.9 Iron deficiency anemia, unspecified (principal); N17.9 Acute kidney failure, unspecified; I12.9 Hypertensive chronic kidney disease with stage 1 through stage 4 chronic kidney disease, or unspecified chronic kidney disease; N18.3 Chronic kidney disease, stage 3 (moderate); I50.9 Heart failure, unspecified; I27.2 Other secondary pulmonary hypertension; I25.10 Atherosclerotic heart disease of native coronary artery without angina pectoris; Z95.1 Presence of aortocoronary bypass graft; K21.9 Gastro-esophageal reflux disease without esophagitis; Z87.11 Personal history of peptic ulcer disease; I48.0 Paroxysmal atrial fibrillation; Z86.73 Personal history of transient ischemic attack (TIA), and cerebral infarction without residual deficits; J96.91 Respiratory failure, unspecified with hypoxia; Z79.01 Long term (current) use of anticoagulants; I08.3 Combined rheumatic disorders of mitral, aortic and tricuspid valves; F31.9 Bipolar disorder, unspecified; K58.1 Irritable bowel syndrome with constipation; Z85.3 Personal history of malignant neoplasm of breast; Z79.899 Other long term (current) drug therapy; Z23 Encounter for immunization
CPT/HCPCS: 36415; 36430; 71275; 80048; 80053; 83540; 83550; 83735; 84439; 84443; 85018; 85025; 85027; 85610; 86850; 86900; 86901; 86920; 86922; 90732; 93005; 94761; 96360; 96361; 96372; A9270; G0009; G0378; G0379; J7030; J7050; P9016; Q9967; 85007; 99218

== ENCOUNTER 2017-02-02 08:58 | Day surgery (SDC) | payer MEDICARE, BC ==
[~2017-02-02] VITALS: Ht 165.1 cm; Wt 74.2 kg
[~2017-02-02 08:58] MED LIST changes: +LIDOCAINE 1% (10mg/ml) 2ml SDV INJ ONE; +NORMAL SALINE 1,000 ML IV ONE; -OMEG300C PO; -RIVA15TA PO
--- OUTSIDE RECORDS SUMMARY | 2017-02-02 09:02 | XMS REPORT | Continuity of Care Document ---
Author Author [facility] Organization [facility] Address Unknown Phone Unavailable Support Name Relationship Address Phone NELLIE ABDULLAHI MD Caregiver [address] [place] [phone] VARSHA VIDAL DO Caregiver [address] [place] [phone] NELLIEELLIOT POLLACKDY Next Of Kin [address] [place], [place] [address] Insurance Providers Payer Name Policy Number Subscriber Name Relationship Medicare [id number] Wednesday,Rubin Hidalgo 18 Self [place] [employer] [id number] Wednesday,Rubin Hidalgo 18 Self Advance Directives Directive [...] 15 Mg PO BEDTIME 09/18/11 Active Fish Oil/[place]-3 Fatty Acids 1 Cap PO BEDTIME 09/18/11 [...] 25 Mg PO Q6H PRN 01/09/12 Active [[place] C] 800 Mg PO DAILY 01/09/12 04/14/13 [...] 15 Mg PO BEDTIME 10/11/13 Active Fish Oil/[place]-3 Fatty Acids 1 Cap PO TWICE A [...] or wound, Call Dr. Sales's office at [phone]. During the evening or on the weekends: If you have questions about your care or wound, Call [facility] at [phone] and have the cable operator page Dr. Sales. Condition at time [...] F (96.8 - 99.1) Temperature (Calculated Celsius) 36.49494 degrees C (36.0 - 37.3) Temperature Source [...] 29, 2010 4:50pm LAB TEST FORM REQUEST [id number] - Lipase April 14, 2013 9:06am 45 [...] COMMENT NURSE WILL CALL WHEN PATIENT ARRIVES NH-Dgu-H-Type Natriuretic Peptide August 29, 2014 10:13am 4500 [...] Has specimen been collected/obtained? Y Urine Specific [place] April 14, 2013 9:00am 1.015 - Has [...] 2009 3:00pm Name: WEDNESDAY,RUBIN HIDALGO Unit #: [id number] : 1935 Sex: F Loc / Svc: ED DOS: Signed Report #: [id number] DIAGNOSTIC IMAGING REPORT TYPE OF EXAM: CHEST [...] MD Encounters Encounter Location Date/Time Departed Clinic [facility] 09/04/14 7:36am Departed Emergency Room [facility] 08/29/14 9:49am Discharged Inpatient [facility] 07/01/14 10:37am
--- OUTSIDE RECORDS SUMMARY | 2017-02-02 09:03 | XMS REPORT | Continuity of Care Document ---
Author Author [facility] Organization [facility] Address Unknown Phone Unavailable Support Name Relationship Address Phone VARSHA VIDAL DO Caregiver [address] [place] [phone] KATHERIN BRAR MD Caregiver [address] [place] [address] DION BALLARD Next Of Kin [address] [place] [address] Insurance Providers Payer Name Policy Number Subscriber Name Relationship Medicare [id number] Wednesday,Rubin Hidalgo 18 Self [facility] [id number] Wednesday,Rubin Hidalgo 18 Self Advance Directives Directive [...] 15 Mg PO BEDTIME 09/18/11 Active Fish Oil/[place]-3 Fatty Acids 1 Cap PO BEDTIME 09/18/11 [...] 25 Mg PO Q6H PRN 01/09/12 Active [[place] C] 800 Mg PO DAILY 01/09/12 04/14/13 [...] 15 Mg PO BEDTIME 10/11/13 Active Fish Oil/[place]-3 Fatty Acids 1 Cap PO TWICE A [...] or wound, Call Dr. Sales's office at [phone]. During the evening or on the weekends: If you have questions about your care or wound, Call [facility] at [phone] and have the milling/polishing operator page Dr. Sales. Condition at time [...] F (96.8 - 99.1) Temperature (Calculated Celsius) 36.69687 degrees C (36.0 - 37.3) Pulse Rate [...] Has specimen been collected/obtained? Y Urine Specific [place] April 14, 2013 9:00am 1.015 - Has [...] 29, 2010 4:50pm LAB TEST FORM REQUEST [id number] - EKG January 21, 2009 9:16am Complete - Turbidity August 29, 2014 10:13am < 20 0-20 Glomerular Filtration Rate Calc August 29, 2014 10:13am 53 - Immature Granulocyte # (Auto) August 29, 2014 10:13am 0.01 T/MM3 N 0.00 -0.03 Immature Granulocyte % (Auto) August 29, 2014 10:13am 0.2 % N 0.0-0.5 Icterus Index August 29, 2014 10:13am < 2 0-7 EK-Xou-Y-Type Natriuretic Peptide August 29, 2014 10:13am 4500 [...] 10, 2009 3:00pm Name: WEDNESDAYRUBIN Unit #: [id number] : 1935 Sex: F Loc / Svc: ED DOS: Signed Report #: [id number] DIAGNOSTIC IMAGING REPORT TYPE OF EXAM: CHEST [...] Encounters Encounter Location Date/Time Departed Emergency Room [facility] 08/29/14 9:49am Discharged Inpatient [facility] 07/01/14 10:37am Recent Diagnosis
--- OUTSIDE RECORDS SUMMARY | 2017-02-02 09:03 | XMS REPORT | Continuity of Care Document ---
Author Author [facility] Organization [facility] Address Unknown Phone Unavailable Support Name Relationship Address Phone EUGENE SALES MD Caregiver [facility] [address] [place] [address] [address] [place] [phone] VARSHA VIDAL DO Caregiver [address] [place] [phone] NELLIEELLIOT POLLACKDY Next Of Kin [address] [place] [address] Insurance Providers Payer Name Policy Number Subscriber Name Relationship Medicare [id number] Wednesday,Rubin Hidalgo 18 Self [facility] [id number] Wednesday,Rubin Hidalgo 18 Self Advance Directives Directive [...] 15 Mg PO BEDTIME 09/18/11 Active Fish Oil/[place]-3 Fatty Acids 1 Cap PO BEDTIME 09/18/11 [...] 25 Mg PO Q6H PRN 01/09/12 Active [[place] C] 800 Mg PO DAILY 01/09/12 04/14/13 [...] 15 Mg PO BEDTIME 10/11/13 Active Fish Oil/[place]-3 Fatty Acids 1 Cap PO TWICE A [...] or wound, Call Dr. Sales's office at [phone]. During the evening or on the weekends: If you have questions about your care or wound, Call [facility] at [phone] and have the hoop punch operator helper page Dr. Sales. Condition at time of discharge: Good see patient instructions Care Plan Discharge Patient: Goal: Understand discharge plan Maximum functional status Patient Instructions: see patient instructions rate >100, confusion, or persistent nausea/vomitting. 2.Severe pain, swelling, redness, or warmth in either of your legs. 3.During office hours, call [phone] 4. After hours, please call [facility] at [phone], and have the hoop punch operator helper page your Surgeon IN THE EVENT OF [...] F (96.8 - 99.1) Temperature (Calculated Celsius) 36.57918 degrees C (36.0 - 37.3) Temperature Source [...] 29, 2010 4:50pm LAB TEST FORM REQUEST [id number] - Lipase April 14, 2013 9:06am 45 [...] Has specimen been collected/obtained? Y Urine Specific [place] April 14, 2013 9:00am 1.015 - Has [...] MD Encounters Encounter Location Date/Time Discharged Inpatient [facility] 07/01/14 10:37am Registered [facility] 05/04/14 9:26am Registered Clinic [facility] 04/26/14 12:39pm Registered Clinic [facility] 04/17/14 10:22am Registered [facility] 04/12/14 4:01pm Recent Diagnosis Breast carcinoma
--- OUTSIDE RECORDS SUMMARY | 2017-02-02 09:03 | XMS REPORT | Continuity of Care Document ---
Author Author [facility] Organization [facility] Address Unknown Phone Unavailable Support Name Relationship Address Phone VIANCA CROOKS MD Caregiver [address] [place] [address] Unavailable VIANCA CROOKS MD Caregiver [address] [place] [address] Unavailable VARSHA VIDAL DO Caregiver [address] [place] [address] Unavailable DION BALLARD Next Of Kin [address] [id number] Insurance Providers Guarantor WednesdayRubin Hidalgo Address [address] [place] [address] Email DENIED 17 Payer [email or web address] Federal Policy Number [id number] Subscriber's Name Wednesday,Rubin Hidalgo Relationship 18 Self Group Number [id number] Effective Date 03 Payer Medicare Policy Number [id number] Subscriber's Name Wednesday,Rubinzuleika Hidalgo Relationship 18 Self Advance Directives Directive Response Recorded Date/Time Advanced Directives Type Living Will DPOA for Healthcare 05/03/14 11:57am Ordered Resuscitation Status Full Code 05/03/14 3:58pm Resuscitation Documents on File No 05/03/14 11:57am DPOA for Healthcare Only Yes 01/06/17 4:08pm Living Will Yes 01/06/17 9:48am Problems Active Problems Medical Problem Onset Date Status Acute kidney injury Unknown Acute Anemia Unknown Acute Atrial fibrillation Unknown Chronic Atrial fibrillation and flutter Unknown Acute Bipolar 1 disorder Unknown Chronic Breast carcinoma 07/03/2014 Acute Chronic anticoagulation Unknown Chronic Congestive heart failure Unknown Acute Constipation Unknown Chronic Contusion of right back wall of thorax Unknown Acute Depression Unknown Chronic Dyspnea Unknown Acute EXPRESSIVE APHASIA Unknown Acute GERD (gastroesophageal reflux disease) Unknown Chronic HTN (hypertension) Unknown Chronic Head injury consultation Unknown Acute History of CVA with residual deficit Unknown Resolved Hx of breast cancer Unknown IBS (irritable bowel syndrome) Unknown Chronic Migraine Unknown Chronic Pulmonary hypertension Unknown Chronic Respiratory failure with hypoxia Unknown Scalp laceration Unknown Acute Past Problems Medical Problem Onset Date CHF exacerbation Unknown Congestive heart failure (CHF) Unknown Pleural effusion Unknown Medications Current Home Medications Medication Dose Units Route Directions Days Qty Instructions Start Date Atorvastatin Calcium 20 Mg Tablet 20 Mg Oral Bedtime 08/21/16 Bumetanide 2 Mg Tablet 1 Tab Oral Daily 30 Tablet 01/07/17 Buspirone Hcl 10 Mg Tablet 10 Mg Oral Twice A Day 01/04/16 Calcium Carbonate/Vitamin D3 (Caltrate 600 + D Tablet) 1 Each Tablet 1 Tab Daily 09/10/16 Clonazepam 0.5 Mg Tab.rapdis 1 Tab Oral Three Times A Day Lansoprazole (Prevacid) 30 Mg Capsule.dr 1 Cap Oral Twice A Day 30 Days 60 Capsule 01/07/17 Mirtazapine 45 Mg Tablet 45 Mg Oral Bedtime 10/11/15 Multivitamin W/Iron, Minerals (Multivitamins With Iron) 1 Each Tab.chew 1 Tab Oral Daily 08/21/16 Nitroglycerin (Nitrostat) 0.4 Mg Tablet 0.4 Mg Sublingual as needed for Prn Orders 09/15/16 Polyethylene Glycol 3350 255 Gm Powder 17 Gm Oral Daily as needed for Prn Orders 527 Gram 09/10/16 Potassium Chloride 20 Meq Tablet.er 20 Meq Oral Daily 30 Tablet Take 1 tablet, by mouth, daily with breakfast. 01/07/17 Sotalol Hcl (Sotalol) 80 Mg Tablet 80 Mg Oral Before Meals Twice A Day Take 1 tablet, by mouth, 2 times a day (before meals). 09/10/16 Temazepam 15 Mg Capsule 15 Mg Oral Bedtime as needed for Anxiety 01/04/16 Vilazodone Hydrochloride (Viibryd) 40 Mg Tablet 40 Mg Oral Daily 10/11/15 Past Home Medications Medication Directions Ordered Status [place] C , 800 Mg Oral Daily 01/09/12 Discontinued Amoxicillin Trihydrate (Amoxicillin) 500 Mg Capsule, 500 Mg Oral Three Times A Day 04/14/13 Discontinued Aripiprazole (Abilify) 2 Mg Tablet, 2 Daily 09/18/11 Discontinued Aspirin 325 Mg Tablet, 325 Mg Oral Bedtime 09/18/11 Discontinued Aspirin , 11/06/08 Discontinued Bultalbital/Asa,Caff , 11/06/08 Discontinued Bumetanide 2 Mg Tablet, 1 Tab Oral Twice A Day 09/10/16 Discontinued Butalb/Acetaminophen/Caffeine (Fioricet 50/325/40) 1 Tab Tablet, 1 Tab Oral As Needed 12/31/11 Discontinued Ciprofloxacin Hcl (Cipro) 500 Mg Tablet, 500 Mg Oral Every 12 Hours 09/15/16 Discontinued Clidinium Br/Chlordiazepoxide (Librax 5/2.5MG) 1 Cap [...] 10 Mg Oral Daily 04/14/13 Discontinued Fish Oil/[place]-3 Fatty Acids (Fish Oil 1,000 Mg Capsule) 1 Cap Capsule, 1 Cap Oral Bedtime 09/18/11 Discontinued Hydrocodone Bit/Acetaminophen (Lortab 7.5) 1 Udtab Tablet, 1 Udtab Oral As Needed 04/14/13 Discontinued L-Methylfolate (Deplin) 7.5 Mg Tablet, 15 Mg Oral Bedtime 09/18/11 Discontinued Lansoprazole (Prevacid) Unknown Strength Capsule.dr, Unknown Dose Oral Daily 09/15/16 Discontinued Lorazepam (Ativan) 0.5 Mg Tablet, 0.5 [...] Plendil Cr 10 Mg , 11/06/08 Discontinued Potassium Chloride 20 Meq Tablet.er, 20 Meq Oral Twice A Day 09/15/16 Discontinued Prevacid 30 Mg , 11/06/08 Discontinued Promethazine Hcl (Phenergan) 25 Mg Tablet, 25 Mg Oral As Needed 04/14/13 Discontinued Rivaroxaban (Xarelto) 15 Mg Tablet, 15 Mg Oral Daily 09/15/16 Discontinued Rivaroxaban (Xarelto) 20 Mg Tablet, 20 [...] Problem Response Recorded Date/Time Onset Date Status Reason for Hospitalization anemia 01/07/2017 4:41pm Not Applicable Not Applicable Chewing Tobacco Status No 05/03/2014 11:59am Not Applicable Not Applicable Hx Substance Use No 01/06/2017 9:53am Not Applicable Not Applicable Hx Alcohol Use No 01/06/2017 9:53am Not Applicable Not Applicable Has the pt used tobacco in the last 12 months No 01/06/2017 9:53am Not Applicable Not Applicable Tobacco Usage none 08/29/2014 10:14am Not Applicable Not Applicable Query Response Start Date Stop Date Smoking Status Never smoker Hospital Discharge Instructions Instructions: Care Instructions: I was in the hospital because (patient own words): SEE ABOUT THE HEART VALVE Discharge Diet: low-salt low-fat Discharge Activity: As tolerates Follow Up Appointments: Dr. Vidal taken one week labs will be reassessed at that time DR. SHARIF APPOINTMENT ON 02/08/17 AT 2:45PM AT GIVEN [place] OFFICE Pending Lab / Results: Follow up w/ your PCP Patient Instructions: -Decrease Bumex/water pill to 2 mg once a day; monitor your weight daily and if it begins to climb will need to contact her doctor to adjust the dose. Your weight today was 178.7 lbs. -With decreased diuretic dose decrease potassium to half prior dose -Dr. Vidal will help you coordinate further GI testing in the near future -continue to hold Xarelto until GI testing completed -Increase Prevacid to 30 mg twice daily -You would probably benefit from an iron supplement but iron levels are not back yet and it will make her stools black which may confuse evaluation for now. Talked to Dr. Vidal about starting iron next week Expected Signs/Symptoms: Exertional shortness of breath with activity, some swelling in her legs Notify Physician If: Your weight increases by 3 pounds in 1 days or 5 pounds in 3 days During Business Hours:: Please call the physician's office at After Business Hours:: Please call [phone] and have the laundry operator page the physician. Pain Management/Treatment: Tylenol as needed Pain Scale Utilized to Educate Patient: 0-10 Pain Scale Wound/Incision Care: Not applicable Durable Medical Equipment: none Condition at time of discharge: Good Plan of Care Discharge Date 01/07/17 5:25pm Disposition 01 DISCHARGED HOME, SELF-CARE Instructions/Education Provided [facility] [place] Congestive Heart Failure Anemia (DC) Blood Transfusion (GEN) Prescriptions See Medication Section Care Plan and Goals See Discharge Instructions Section Functional Status Query Response Date Recorded Mobility Status Ambulatory w/assist January 06, 2017 9:52am Assistive Devices Front Wheeled Walker January 06, 2017 9:52am Activity Limitations Weakness January 06, 2017 9:52am Feeding Ability Independent January 06, 2017 9:52am Toileting Ability Assist January 06, 2017 9:52am Grooming Ability Assist January 06, 2017 9:52am Dressing Ability Assist January 06, 2017 9:52am Driving Ability Dependent January 06, 2017 9:52am Housework Ability Assist January 06, 2017 9:52am Meal Preparation Ability Assist January 06, 2017 9:52am Stair Climbing Ability Assist January 06, 2017 9:52am Ability to complete ADL's impeded by No change January 06, 2017 9:52am Cognitive/Perceptual Impairments Impaired vision January 06, 2017 9:52am Visual Assistive Devices Glasses With patient January 06, 2017 9:52am Allergies, Adverse Reactions, Alerts Allergen Type Severity Reaction Status Last Updated Morphine Allergy Severe CARDIAC ARREST Active 01/06/17 Immunizations Immunization Event Date Type Not Given Reason Dose Number Lot Number Core Inserter VIS Given Pneumococcal conjugate PCV 13 01/06/17 Administered 1 [id number] Pfizer Query Response on File Recorded Date/Time Hx Influenza Vaccination Y AUG 2016 01/06/17 9:53am Hx Pneumococcal Vaccination Y WITHIN PAST 5 YEARS 01/06/17 9:53am Hx Influenza Vaccination Y AUG 2016 01/06/17 9:53am Influenza Vaccine Hx AUG 2016 01/06/17 2:09pm Tdap Vaccine Hx 10/11/15 10/11/15 8:47pm Vital Signs Acute Vital Signs Vital Response Date/Time Temperature (Fahrenheit) 98.2 deg F (96.8 - 99.1) 01/07/2017 8:03am Temperature (Calculated Celsius) 36.16424 degrees C (36.0 - 37.3) 01/07/2017 8:03am Pulse Rate (adult) 69 bpm (60 - 100) 01/07/2017 1:43pm Respiratory Rate 20 breaths/min (10 - 20) 01/07/2017 12:34pm O2 Sat by Pulse Oximetry 94 % (90 - 100) 01/07/2017 8:03am Oxygen Delivery Method Room Air 01/06/2017 9:14pm Oxygen Delivery Method Nasal Cannula 01/07/2017 8:03am Oxygen Flow Rate 2.00 L/min 01/07/2017 1:43pm Blood Pressure 116/69 mm Hg 01/07/2017 8:03am Blood Pressure Source Automatic Cuff 01/07/2017 8:03am Height (Feet) 5 feet 01/07/2017 9:09am Height (Inches) 5.00 inches 01/07/2017 9:09am Weight (Kilograms) 76.800 kg 01/06/2017 2:06pm Body Mass Index (BMI) 28.2 01/06/2017 9:47am Results Laboratory Results Test Name Result Units Flags Reference Collection Date/Time Result Date/ Time Comments White Blood Count 5.1 T/MM3 4.5-11.0 01/07/2017 4:19am 01/07/2017 5: 08am Red Blood Count 3.19 M/MM3 L 4.00-5.20 01/07/2017 4:19am 01/07/2017 5: 08am Hemoglobin 9.0 GM/DL D L 12-16 01/07/2017 11:57am 01/07/2017 12:47pm Hematocrit 26.7 % L 36-46 01/07/2017 4:19am 01/07/2017 5:08am Mean Corpuscular Volume 83.7 UM3 80-100 01/07/2017 4:1901/07/2017 5: 08am Mean Corpuscular Hemoglobin 23.2 UUG L 26-34 01/07/2017 4:2016 5:08am Mean Corpuscular Hemoglobin Concent 27.7 GM/DL L 31-37 01/07/2017 4:01/07/2017 5:08am RDW Standard Deviation 48.2 FL 36.9-50.2 01/07/2017 4:01/07/2017 5 :08am Platelet Count 207 T/MM3 130-400 01/07/2017 4:01/07/2017 5:08am Mean Platelet Volume 10.0 UM3 9.4-12.4 01/07/2017 4:01/07/2017 5: 08am Neutrophils (%) (Auto) 59.6 % 33-66 01/07/2017 4:01/07/2017 5: 08am Lymphocytes (%) (Auto) 23.2 % 23-45 01/07/2017 4:01/07/2017 5: 08am Monocytes (%) (Auto) 11.3 % H 0-9.0 01/07/2017 4:01/07/2017 5:08am Eosinophils (%) (Auto) 5.5 % H 0-4 01/07/2017 4:01/07/2017 5:08am Basophils (%) (Auto) 0.4 % 0-2 01/07/2017 4:01/07/2017 5:08am Immature Granulocyte % (Auto) 0.0 % 0.0-0.5 01/07/2017 4:2016 5:08am Absolute Neutrophils (auto) 3.1 T/MM3 1.8-7.7 01/07/2017 4:2016 5:08am Absolute Lymphocytes (auto) 1.2 T/MM3 1-4.8 01/07/2017 4:2016 5:08am Absolute Monocytes (auto) 0.6 T/MM3 0-0.8 01/07/2017 4:01/07/2017 5:08am Absolute Eosinophils (auto) 0.3 T/MM3 0-0.5 01/07/2017 4:2016 5:08am Absolute Basophils (auto) 0.0 T/MM3 0-0.2 01/07/2017 4:19am 01/07/2017 5:08am Absolute Immature Granulocyte (auto 0.00 T/MM3 0.00-0.03 01/07/2017 4: 19am 01/07/2017 5:08am Neutrophils % (Manual) 39.0 % 33-66 01/06/2017 11:45am 01/06/2017 12: 00pm Band Neutrophils % 1.0 % 0-6 01/06/2017 11:45am 01/06/2017 12:00pm Lymphocytes % (Manual) 45.0 % 23-45 01/06/2017 11:45am 01/06/2017 12: 00pm Monocytes % (Manual) 11.0 % H 0-9.0 01/06/2017 11:45am 01/06/2017 12: 00pm Eosinophils % (Manual) 4.0 % 0-4 01/06/2017 11:45am 01/06/2017 12:00pm Band Neutrophils # 0.0 T/MM3 01/06/2017 11:45am 01/06/2017 12:00pm Absolute Neutrophils (Manual) 1.9 T/MM3 1.8-7.7 01/06/2017 11:45am 11/2016 12:00pm Lymphocytes # (Manual) 2.2 T/MM3 1-4.8 01/06/2017 11:45am 01/06/2017 12 :00pm Monocytes # (Manual) 0.5 T/MM3 0-0.8 01/06/2017 11:45am 01/06/2017 12: 00pm Eosinophils # (Manual) 0.2 T/MM3 0-0.5 01/06/2017 11:45am 01/06/2017 12 :00pm Red Cell Morphology Comment NORMAL 01/06/2017 11:45am 01/06/2017 12 :01pm Prothromb Time International Ratio 1.38 H 0.76-1.04 01/06/2017 10:11am 01/06/2017 10:56am THERAPUTIC RANGE=2.00-3.00 FOR ANTI-THROMBOSIS THERAPUTIC RANGE=2.50-3.50 FOR IMPLANTED VALVE Icterus Index < 2 0-7 01/07/2017 4:1901/07/2017 5:14am Chemistry Specimen Hemolysis < 15 0-25 01/07/2017 4:01/07/2017 5 :14am 0-25: Specimen Exhibited No Hemolysis. Turbidity < 20 0-20 01/07/2017 4:01/07/2017 5:14am Sodium Level 142 MEQ/L 134-144 01/07/2017 4:01/07/2017 5:14am Potassium Level 4.2 MEQ/L 3.6-5 01/07/2017 4:01/07/2017 5:14am Chloride Level 105 MEQ/L 98-107 01/07/2017 4:01/07/2017 5:14am Carbon Dioxide Level 30 MEQ/L 22-30 01/07/2017 4:01/07/2017 5: 14am Anion Gap 7 MEQ/L 5-15 01/07/2017 4:01/07/2017 5:14am Blood Urea Nitrogen 26.0 MG/DL H 7-17 01/07/2017 4:01/07/2017 5: 14am Creatinine 1.2 MG/DL D 0.7-1.2 01/07/2017 4:01/07/2017 5:31am BUN/Creatinine Ratio 22 RATIO 6-26 01/07/2017 4:01/07/2017 5:14am Glomerular Filtration Rate Calc 43 01/07/2017 4:01/07/2017 5: 14am Glucose Level 103 MG/DL 65-110 01/07/2017 4:01/07/2017 5:14am Calculated Osmolality 278 MOSM/KG 261-280 01/07/2017 4:01/07/2017 5:14am Calcium Level 8.7 MG/DL 8.4-10.2 01/07/2017 4:01/07/2017 5:14am Total Bilirubin 0.50 MG/DL 0.20-1.30 01/06/2017 10:11am 01/06/2017 10: 53am Alkaline Phosphatase 83 U/L 38-126 01/06/2017 10:11am 01/06/2017 10: 53am Total Protein 6.6 G/DL 6.3-8.2 01/06/2017 10:11am 01/06/2017 10:53am Albumin 3.7 G/DL 3.5-5.0 01/06/2017 10:11a01/06/2017 10:53am Globulin 2.9 G/DL 2.4-3.6 01/06/2017 10:11a01/06/2017 10:53am Albumin/Globulin Ratio 1.3 RATIO 1.1-2.2 01/06/2017 10:11a01/06/2017 10:53am Aspartate Amino Transf (AST/SGOT) 40 U/L H 14-36 01/06/2017 10:11am 11/2016 10:53am Alanine Aminotransferase (ALT/SGPT) 35 U/L 9-52 01/06/2017 10:11am 11/2016 10:53am Magnesium Level 2.4 MG/DL H 1.6-2.3 01/06/2017 10:11a01/06/2017 10: 53am Thyroid Stimulating Hormone (TSH) 3.15 uIU/mL 0.35-4.94 01/06/2017 10: 11a01/06/2017 4:01pm TSH performed at [facility] Reference Lab, [address] [place] [address] Fishing Tackle Repairer Yane Cameron DO Name: WEDNESDAY,URBIN HIDALGO Unit #: [id number] : 1935 Sex: F DISCHARGE SUMMARY Admit Date: 01/06/17 Report #: [id number] [facility] General Date Date DATE: 01/07/17 TIME: 17:42 Attending Physician Vianca Crooks MD Admitting Physician Vianca Crooks MD Consulting Physician Nellie Abdullahi MD Admitting Diagnosis ANEMIA; ACUTE KIDNEY INJURY Discharge Diagnosis 1. Microcytic anemia, likely iron deficient 2. Acute on chronic kidney disease-stage III 3. GERD, history of peptic ulcer disease, possible recent upper GI bleed 4. Coronary artery disease 5. Valvular heart disease 6. Pulmonary hypertension 7. Paroxysmal atrial fibrillation 8. History CVA Procedures Transfusion of 2 units packed red blood cells Laboratory Laboratory Tests Test 01/06/17 10:11 01/06/17 11:45 01/06/17 18:16 01/06/17 23:58 White Blood Count 4.6T/MM3 (4.5-11.0) 4.8T/MM3 (4.5-11.0) Red Blood Count 3.20M/MM3 (4.00-5.20) 3.15M/MM3 (4.00-5.20) Hemoglobin 7.2GM/DL (12-16) 7.0GM/DL (12-16) 7.6GM/DL (12-16) Hematocrit 26.4% (36-46) 25.9% (36-46) Mean Corpuscular Volume 82.5UM3 (80-100) 82.2UM3 (80-100) Mean Corpuscular Hemoglobin 22.5UUG (26-34) 22.2UUG (26-34) Mean Corpuscular Hemoglobin Concent 27.3GM/DL (31-37) 27.0GM/DL (31-37) RDW Standard Deviation 47.9FL (36.9-50.2) 47.2FL (36.9-50.2) Platelet Count 244T/MM3 (130-400) 227T/MM3 (130-400) Mean Platelet Volume 9.8UM3 (9.4-12.4) 9.6UM3 (9.4-12.4) Immature Granulocyte % (Auto) 0.0% (0.0-0.5) Neutrophils (%) (Auto) 49.7% (33-66) Lymphocytes (%) (Auto) 36.2% (23-45) Monocytes (%) (Auto) 9.0% (0-9.0) Eosinophils (%) (Auto) 4.2% (0-4) Basophils (%) (Auto) 0.9% (0-2) Absolute Immature Granulocyte (auto 0.00T/MM3 (0.00-0.03) Absolute Neutrophils (auto) 2.3T/MM3 (1.8-7.7) Absolute Lymphocytes (auto) 1.7T/MM3 (1-4.8) Absolute Monocytes (auto) 0.4T/MM3 (0-0.8) Absolute Eosinophils (auto) 0.2T/MM3 (0-0.5) Absolute Basophils (auto) 0.0T/MM3 (0-0.2) Prothromb Time International Ratio 1.38 (0.76-1.04) Turbidity < 20 (0-20) Sodium Level 143MEQ/L (134-144) Potassium Level 4.4MEQ/L (3.6-5) Chloride Level 100MEQ/L (98-107) Carbon Dioxide Level 35MEQ/L (22-30) Anion Gap 8MEQ/L (5-15) Blood Urea Nitrogen 31.0MG/DL (7-17) Creatinine 1.6MG/DL (0.7-1.2) Glomerular Filtration Rate Calc 31 BUN/Creatinine Ratio 19RATIO (6-26) Glucose Level 104MG/DL (65-110) Calculated Osmolality 282MOSM/KG (261-280) Calcium Level 9.3MG/DL (8.4-10.2) Magnesium Level 2.4MG/DL (1.6-2.3) Total Bilirubin 0.50MG/DL (0.20-1.30) Icterus Index < 2 (0-7) Aspartate Amino Transf (AST/SGOT) 40U/L (14-36) Alanine Aminotransferase (ALT/SGPT) 35U/L (9-52) Alkaline Phosphatase 83U/L (38-126) Total Protein 6.6G/DL (6.3-8.2) Albumin 3.7G/DL (3.5-5.0) Globulin 2.9G/DL (2.4-3.6) Albumin/Globulin Ratio 1.3RATIO (1.1-2.2) Thyroid Stimulating Hormone (TSH) 3.15uIU/mL (0.35-4.94) Chemistry Specimen Hemolysis < 15 (0-25) Neutrophils % (Manual) 39.0% (33-66) Band Neutrophils % 1.0% (0-6) Lymphocytes % (Manual) 45.0% (23-45) Monocytes % (Manual) 11.0% (0-9.0) Eosinophils % (Manual) 4.0% (0-4) Absolute Neutrophils (Manual) 1.9T/MM3 (1.8-7.7) Band Neutrophils # 0.0T/MM3 Lymphocytes # (Manual) 2.2T/MM3 (1-4.8) Monocytes # (Manual) 0.5T/MM3 (0-0.8) Eosinophils # (Manual) 0.2T/MM3 (0-0.5) Red Cell Morphology Comment Normal Test 01/07/17 04:19 01/07/17 11:57 White Blood Count 5.1T/MM3 (4.5-11.0) Red Blood Count 3.19M/MM3 (4.00-5.20) Hemoglobin 7.4GM/DL (12-16) 9.0GM/DL (12-16) Hematocrit 26.7% (36-46) Mean Corpuscular Volume 83.7UM3 (80-100) Mean Corpuscular Hemoglobin 23.2UUG (26-34) Mean Corpuscular Hemoglobin Concent 27.7GM/DL (31-37) RDW Standard Deviation 48.2FL (36.9-50.2) Platelet Count 207T/MM3 (130-400) Mean Platelet Volume 10.0UM3 (9.4-12.4) Immature Granulocyte % (Auto) 0.0% (0.0-0.5) Neutrophils (%) (Auto) 59.6% (33-66) Lymphocytes (%) (Auto) 23.2% (23-45) Monocytes (%) (Auto) 11.3% (0-9.0) Eosinophils (%) (Auto) 5.5% (0-4) Basophils (%) (Auto) 0.4% (0-2) Absolute Immature Granulocyte (auto 0.00T/MM3 (0.00-0.03) Absolute Neutrophils (auto) 3.1T/MM3 (1.8-7.7) Absolute Lymphocytes (auto) 1.2T/MM3 (1-4.8) Absolute Monocytes (auto) 0.6T/MM3 (0-0.8) Absolute Eosinophils (auto) 0.3T/MM3 (0-0.5) Absolute Basophils (auto) 0.0T/MM3 (0-0.2) Turbidity < 20 (0-20) Sodium Level 142MEQ/L (134-144) Potassium Level 4.2MEQ/L (3.6-5) Chloride Level 105MEQ/L (98-107) Carbon Dioxide Level 30MEQ/L (22-30) Anion Gap 7MEQ/L (5-15) Blood Urea Nitrogen 26.0MG/DL (7-17) Creatinine 1.2MG/DL (0.7-1.2) Glomerular Filtration Rate Calc 43 BUN/Creatinine Ratio 22RATIO (6-26) Glucose Level 103MG/DL (65-110) Calculated Osmolality 278MOSM/KG (261-280) Calcium Level 8.7MG/DL (8.4-10.2) Icterus Index < 2 (0-7) Chemistry Specimen Hemolysis < 15 (0-25) Radiology CT angiogram of the lungs on date of admission demonstrated no evidence of pulmonary embolism, small bilateral pleural effusions and evidence of right heart failure, severe cardiomegaly. History of Present Illness Patient is an 81-year-old female who presented to [facility] today for scheduled GABRIELA under the care of Dr. Abdullahi. Preoperative lab revealed anemia with a hemoglobin of 7.0. WBC 4.8, hemoglobin 25.9. Sodium is 143, potassium 4.4, BUNs 31, creatinine 1.6, catheter osmology 282, magnesium 2.4, AST 40. Her last reported creatinine was in September 2016 in which it was 1.2. Given the findings of anemia, accompanied with acute kidney injury. The GABRIELA was canceled and the hospitalist services were contacted for admission for further evaluation and workup. Patient is seen on initial examination with her daughter at the bedside. She is alert and oriented and pleasant. She has been on Xarelto long-term for history of atrial fibrillation. She denies having a history of GI bleeding, however, does report several weeks ago. She did note one episode where her stool was black in color. She also describes having an ongoing intermittent nausea, feeling throughout her abdomen, however, denies vomiting or hemoptysis. Admission vital signs to between 98.1, pulse 63, blood pressure 138/73, pulse ox 96% on 3 liters. Hospital Course . Wednesday was hospitalized for observation basis after she was found to have a hemoglobin of 7 and creatinine of 1.6 following CTA of the lungs. She was tentatively scheduled for GABRIELA however procedure was canceled. She was transfused with 1 unit packed red blood cells on the date of admission with hemoglobin rising to 7.6 and repeating at 7.4 on the morning of . A second unit of blood was administered at that time with follow-up hemoglobin 9.0. Patient was asymptomatic other than chronic exertional dyspnea. Iron studies are pending at discharge but iron deficiency as suggested by microcytosis. Hemoccult was ordered however not obtained during the hospitalization. Patient described an isolated black stool several weeks ago, chronic upper abdominal discomfort but not indigestion or reflux, and has a known history of peptic disease. It's likely that she has chronic GI blood loss which has been aggravated by use of Xarelto. Xarelto was discontinued pending further GI evaluation and she is to see Dr. Vidal next week to coordinate EGD and possible colonoscopy prior to resumption of anticoagulation. Iron therapy was not initiated this time to avoid confusion over dark stools pending further evaluation. Creatinine was elevated on admission at 1.6, Bumex was held on admission but resumed on 01/07 at half her prior dose. Patient is advised to monitor her weight daily and contact her managing physicians should wait began to climb. Potassium dose was also cut in half. She was hydrated gently in conjunction to blood transfusion and creatinine dropped to 1.2 on 01/07. Ambulatory oximetry was obtained on the date of discharge demonstrating need for 3 L supplemental oxygen with activities. Patient is previously been prescribed oxygen for home use but acknowledged that she is inconsistent using it with activities as it is cumbersome for her to use with her walker. At rest 2 L supplemental oxygen was adequate. Patient was felt stable for discharge on the afternoon of 01/07. She is to follow- up with Dr. Vidal within 1 week and have blood work reassessed (CBC and BMP); she'll follow-up with Dr. Abdullahi in one month. Discharged home with assistance of her daughter. Problems: (1) Anemia Status: Acute (2) Acute kidney injury Status: Acute Assessment & Plan: Baseline creatinine appears to be 1-1.2 (3) Respiratory failure with hypoxia (4) Atrial fibrillation Status: Chronic (5) Chronic anticoagulation Status: Chronic Assessment & Plan: Xarelto (6) Hx of breast cancer (7) Bipolar 1 disorder Status: Chronic (8) Depression Status: Chronic (9) Pulmonary hypertension Status: Chronic (10) HTN (hypertension) Status: Chronic (11) GERD (gastroesophageal reflux disease) Status: Chronic (12) IBS (irritable bowel syndrome) Status: Chronic (13) Constipation Status: Chronic (14) History of CVA with residual deficit Status: Resolved Code Status Full Code Home Meds Active Scripts Lansoprazole (Prevacid) 30 Mg Capsule.dr, 1 CAP PO BID for 30 Days, #60 CAP Prov:VIANCA CROOKS MD 01/07/17 Potassium Chloride (Potassium Chloride) 20 Meq Tablet.er, 20 MEQ PO DAILY, #30 TAB Take 1 tablet, by mouth, daily with breakfast. Prov:VIANCA CROOKS MD 01/07/17 Bumetanide (Bumetanide) 2 Mg Tablet, 1 TAB PO DAILY, #30 TAB 5 Refills Prov:VIANCA CROOKS MD 01/07/17 Reported Medications Nitroglycerin (Nitrostat) 0.4 Mg Tablet, 0.4 MG SL Y for PRN ORDERS, TAB 09/15/16 Sotalol HCl (Sotalol) 80 Mg Tablet, 80 MG PO ACBID, TAB Take 1 tablet, by mouth, 2 times a day (before meals). 09/10/16 Clonazepam (Clonazepam) 0.5 Mg Tab.rapdis, 1 TAB PO TID, TAB 09/10/16 Calcium Carbonate/Vitamin D3 (Caltrate 600 + D Tablet) 1 Each Tablet, 1 TAB DAILY 09/10/16 Polyethylene Glycol 3350 (Polyethylene Glycol 3350) 255 Gm Powder, 17 GM PO DAILY Y for PRN ORDERS, #527 GM 09/10/16 Multivitamin W/Iron, Minerals (Multivitamins with Iron) 1 Each Tab.chew, 1 TAB PO DAILY 08/21/16 Atorvastatin Calcium (Atorvastatin Calcium) 20 Mg Tablet, 20 MG PO HS 08/21/16 Temazepam (Temazepam) 15 Mg Capsule, 15 MG PO HS Y for ANXIETY 01/04/16 Buspirone HCl (Buspirone HCl) 10 Mg Tablet, 10 MG PO BID 01/04/16 Vilazodone Hydrochloride (Viibryd) 40 Mg Tablet, 40 MG PO DAILY 10/11/15 Mirtazapine (Mirtazapine) 45 Mg Tablet, 45 MG PO HS 10/11/15 Discontinued Reported Medications Rivaroxaban (Xarelto) 15 Mg Tablet, 15 MG PO DAILY, TAB Take 1 tablet, by mouth, 2 times a day with meals. 09/15/16 Lansoprazole (Prevacid) Unknown Strength Capsule., PO DAILY, CAP 09/15/16 Face to Face Encounter I met with patient on the day of dismissal and discussed follow up appointments , medications, and safety plan. Discharge Disposition Home with family assistance Copies To 1: NELLIE ABDULLAHI MD; VARSHA VIDAL DO Documentation Requirements Documenting Diagnosis Anemia, CHF CHF Type and Acuity Type of CHF: Diastolic, Valvular Heart Disease Acuity CHF: Chronic Chronic Kidney Disease Stage of CKD: Stage 3 GFR 30-59 Anemia Anemia Etiology: Iron Deficiency Anemia Acuity: Unable to Determine (chronic blood loss probable) Renal Insufficiency Renal Insufficiency: Acute on Chronic Renal Failure Classification of CKD: Stage 3 GFR 30-59 VIANCA CROOKS MD Jan 07, 2017 17:54 Addendum: VIANCA CROOKS MD on 01/07/17 @ 18:36 On the date of discharge the patient denied lightheadedness or dizziness. She was ambulating without difficulty. Examination revealed regular cardiac rhythm and abdominal distention with minimal discomfort on palpation of the upper abdomen. There was trace edema at her ankles. Discharge plans as previously noted above. Discharge plans were reviewed with the patient and her daughter in detail. Procedures Procedure Status Date Provider(s) Chest x-ray 2vw frontal&latl Completed 10/14/16 Chest x-ray 2vw frontal&latl Completed 10/20/16 Chest x-ray 2vw frontal&latl Completed 11/02/16 Chest x-ray 2vw frontal&latl Completed 11/17/16 Ht muscle image spect mult Completed 12/22/16 Cardiovascular stress test Completed 12/22/16 309175"TECHNETIUM TC-99M TETROFOSMIN, DIAGNOSTIC, PER STUDY Completed LEXISCAN .4MG/5ML - REGADENOSON Completed 12/22/16 Encounters Encounter Location Arrival/Admit Date Discharge/Depart Date Attending Provider Discharged Inpatient (obs) [facility] 01/06/17 12:00pm 01/07/17 5 :25pm VIANCA CROOKS MD Registered [facility] 12/22/16 8:51am NELLIE ABDULLAHI MD Registered [facility] 12/02/16 1:22pm FLORA DOMÍNGUEZ MD Registered [facility] 11/17/16 8:46am VARSHA VIDAL DO Registered [facility] 11/02/16 10:23am VARSHA VIDAL DO Registered [facility] 10/20/16 4:26pm NELLIE ABDULLAHI MD Registered [facility] 10/14/16 2:42pm NELLIE ABDULLAHI MD
[2017-02-02 09:14] VITALS: Ht 165.1 cm; Wt 74.2 kg
[2017-02-02 09:15] VITALS: BP 163/84; PULSE 53; RESP 12; TEMP 98.3; O2SAT 96
[2017-02-02] MEDS ORDERED: LIDOCAINE VISCOUS 2% Oral Soln 15ml UD ONE (10:30)
--- NOTE | 2017-02-02 10:36 | ANESPREOP ---
Anesthesia Record Date and Time DATE: 02/02/17 TIME: 10:34 Pre-Op Diagnosis gi reflux microcytic anemia Proposed Surgical Procedure colonoscopy and esophagogastroduodenoscopy Allergies: Coded Allergies: morphine (Verified Allergy, Severe, CARDIAC ARREST, 02/01/17) Ht/Wt/BMI Height: 5 ' 5.00 " Weight: 74.200 kg BMI: 27.2 kg/m2 Vital Signs Date Time Temp Pulse Resp B/P Pulse Ox O2 Delivery O2 Flow Rate FiO2 02/02/17 10:00 Nasal Cannula 2.00 100 02/02/17 09:15 98.3 53 12 163/84 96 Medications Atorvastatin Calcium (Atorvastatin Calcium) 20 Mg Tablet, 20 MG PO HS, (Reported ) Last Taken: on 02/01/17 Bumetanide (Bumetanide) 2 Mg Tablet, 1 TAB PO BID, (Reported) Last Taken: on 02/01/17 Buspirone HCl (Buspirone HCl) 10 Mg Tablet, 10 MG PO BID, (Reported) Last Taken: on 02/01/17 Calcium Carbonate/Vitamin D3 (Caltrate 600 + D Tablet) 1 Each Tablet, 1 TAB DAILY, (Reported) Last Taken: on 02/01/17 Clonazepam (Clonazepam) 0.5 Mg Tab.rapdis, 1 TAB PO TID, (Reported) Last Taken: on 02/01/17 Lansoprazole (Prevacid) 30 Mg Capsule.dr, 1 CAP PO BID Last Taken: on 02/01/17 Mirtazapine (Mirtazapine) 45 Mg Tablet, 45 MG PO HS , (Reported) Last Taken: on 02/01/17 Multivitamin W/Iron, Minerals (Multivitamins with Iron) 1 Each Tab.chew, 1 TAB PO DAILY, (Reported) Last Taken: on 02/01/17 Nitroglycerin (Nitrostat) 0.4 Mg Tablet, 0.4 MG SL for PRN ORDERS, (Reported) Polyethylene Glycol 3350 (Polyethylene Glycol 3350) 255 Gm Powder, 17 GM PO DAILY PRN for PRN ORDERS, (Reported) Last Taken: on 02/01/17 Potassium Chloride (Potassium Chloride) 20 Meq Tablet.er, 20 MEQ PO BIDWM, (Reported) Take 1 tablet, by mouth, two times a day with meals. Last Taken: on 02/01/17 Sotalol HCl (Sotalol) 80 Mg Tablet, 80 MG PO ACBID, (Reported) Take 1 tablet, by mouth, 2 times a day (before meals). 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 mastectomy ), Cardiac Arrythmia (A-FIB), Reflux (PER H&P PT DENIES), Denies: *Diabetes, Anesthesia Reactions (no airway issues) , Arthritis, Asthma, Blood Transfusion Reac, COPD, Clotting Problems, Deep Vein Thrombosis, Glaucoma, Headaches, Hepatitis, Hiatal Hernia, Malignant Hyperthermia, Pacemaker, Pneumonia, Renal Disease, Rheumatic Fever, Seizures, Sleep Apnea, Thyroid Disease, Tuberculosis Smoking Status: Never smoker Has pt. smoked today?: No Use Chewing Tobacco?: No Substance Use Type: does not use Substance last used: unknown Alcohol Intake: none Last Drink: unknown HX of Last Menstrual Period: hyst. Past Surgical History Orthopedic Surgeries: Yes - L FALLEN ARCH/FOOT SURG, RIGHT TKA Abdominal Surgeries: Yes - gallbladder Genitourinary Surgeries: No Cardiac Surgeries: Yes - quad. bipass Endocrine Surgeries: No Reproductive Surgeries: Yes - hyst., julian. mastectomy Neurological Surgeries: No Ear Surgeries: No Nose Surgeries: No Throat Surgeries: Yes - EGD Other Surgeries: Yes - COLONOSCOPY, ERCP Anesthesia Adverse Reactions: FOUND nausea and vomiting Family Hx of Anesthesia Advers: none Hx of Motion Sickness: No Pertinent Findings EKG Rhythm: Sinus Rhythm Physical Exam Respiratory: Bilat breath sounds equal, Lungs clear Cardiovascular: FOUND Regular rate, rhythm, FOUND No murmur Airway Assessment Mallampati Score: II TMD: 3 Fingerbreadths Neck Extension: Good Overall Assessment: No Airway Concerns ASA: 3 Plan Anesthesia Plan: TIVA Discussion Discussed risks/options/alternatives of anesthesia and questions answered. Patient consents. Nursing pain assessment noted. Present: Family Member Attestation Statement Prior to the delivery of any anesthetic medication, I examined the patient, developed the plan, obtained the patient's consent and discussed the risk and benefits of the procedure with the patient/guardian. ADRIÁN DILLON RETAIL MERCHANDISER Feb 02, 2017 10:36
[2017-02-02] MEDS ORDERED: PROPOFOL 500mg 50 ML IV ONE (10:39)
[2017-02-02] MEDS ORDERED: LIDOCAINE 1% (10mg/ml) 2ml SDV ONE (10:39)
[2017-02-02] MEDS ORDERED: GLYCOPYRROLATE 0.4mg/2ml INJECTION ONE (10:51)
[2017-02-02] MEDS ORDERED: ONDANSETRON 4mg/2ml INJECTION ONE (11:03)
[2017-02-02 11:32] VITALS: BP 92/53; PULSE 45; RESP 12; TEMP 97.5; O2SAT 97
--- NOTE | 2017-02-02 11:36 | GSPOSTPROC ---
Immediate Operative Note DATE: 02/02/17 TIME: 11:35 Postop Diagnosis: Anemia Surgical Procedure: EGD, C-scope Surgeon: Alie ASA: 3 EUGENE SALES MD Feb 02, 2017 11:36
[2017-02-02 11:47] VITALS: BP 124/57; PULSE 48; RESP 15; O2SAT 100
[2017-02-02 12:02] VITALS: BP 133/64; PULSE 48; RESP 14; O2SAT 100
--- NOTE | 2017-02-02 13:10 | OPNOTEF ---
DATE OF OPERATION 02/02/2017 PREOPERATIVE DIAGNOSES 1. Recent microcytic anemia. 2. Recent anticoagulation with Xarelto. 3. Gastroesophageal reflux disease. 4. Internal and external hemorrhoids. POSTOPERATIVE DIAGNOSES 1. Recent microcytic anemia. 2. Recent anticoagulation with Xarelto. 3. Gastroesophageal reflux disease. 4. Internal and external hemorrhoids. OPERATION Esophagogastroduodenoscopy and total colonoscopy. SURGEON Dr. Strange [facility] CLASS 3 FINDINGS No abnormalities were found at the upper gastrointestinal tract. Mucosa at the esophagus, stomach and duodenum looked normal. No source for bleeding which would lead to anemia was found at the upper gastrointestinal tract. There was no bright red blood or old blood anywhere at the upper gastrointestinal tract. There were no colon or rectal tumors. There were no colon or rectal polyps. There was no melanosis coli. There were no angiodysplasia lesions at the colon. There was no colonic diverticulosis. There was no inflammatory bowel disease. The patient does have some internal and external hemorrhoids. No bright red blood or old blood was seen anywhere at the colon or rectum at the time of the procedure today. No source for bleeding which would be to microcytic anemia was seen at the terminal ileum, colon or the rectum at total colonoscopy today. DESCRIPTION OF OPERATION The patient was brought to the endoscopy room. The patient was placed on a cart in the endoscopy room. The patient was placed in left lateral recumbent position on the cart. The patient was premedicated with intravenous sedation medication administered by the nurse senior advisory. The Olympus upper GI endoscope was used. The upper GI endoscope was introduced into the esophagus. The upper GI endoscope was advanced down through the esophagus and stomach and into the duodenum. The upper GI endoscope was then withdrawn from the duodenum through the pylorus back into the stomach. The upper GI endoscope was retroflexed and the gastroesophageal junction was viewed from below. The upper GI endoscope was straightened out. Stomach was examined further. The upper GI endoscope was then withdrawn out through the stomach and esophagus and removed from the patient. The patient was kept in left lateral recumbent position on the cart in the endoscopy room. The patient continued to receive intravenous sedation medication administered by the nurse senior advisory. Total colonoscopy was performed. The Olympus colonoscope was used. The colonoscope was introduced into the rectum. The colonoscope was advanced up through the rectum and colon all the way up to the cecum. The appendiceal orifice was visualized. The ileocecal valve was visualized. Light was seen transilluminating from the tip of the colonoscope through the wall of the abdomen at the right lower quadrant of the abdomen. To be absolutely sure that the colonoscope had been advanced all the way up to the cecum, the tip of the colonoscope was introduced through the ileocecal valve up into the terminal ileum. The terminal ileum mucosa appeared normal. The tip of the colonoscope was then withdrawn out through the terminal ileum and through the ileocecal valve back into the colon. The colonoscope was then withdrawn out through the colon and rectum and removed from the patient. Findings throughout procedure were as described above. The patient did continue to receive intravenous sedation medication administered by the nurse senior advisory throughout the operation. The patient did tolerate the operation well. RECOMMENDATION Followup colonoscopy again in 10 years. LAKEISHA
--- NOTE | 2017-02-02 13:16 | ANESPO ---
Post-Op Note Date 02/02/17 Time: 13:16 Status Pt Participated in Evaluation: Pt participated in person Vital Signs Date Time Temp Pulse Resp B/P Pulse Ox O2 Delivery O2 Flow Rate FiO2 02/02/17 12:02 48 14 133/64 100 Room Air 02/02/17 11:47 2.00 02/02/17 11:32 97.5 02/02/17 10:00 100 Respiratory Function: Airway patent, Regular respirations Cardiovascular Function: Regular pulse Mental Status: Alert/oriented Pain Level Intensity: 0 Hydration: Taking po fluids Complications during Recovery None apparent Follow-Up Instructions Instructions Per Surgeon COLE TORRES CRNA Feb 02, 2017 13:16
[2017-02-04] MEDS ORDERED: LIDOCAINE 1% (10mg/ml) 2ml SDV INJ ONE (07:00)
== END 2017-02-02 13:20 | disposition home or self-care (01) ==
LOC: SCU 08:58
PROVIDERS: ATTEND Surgery
DX: K21.9 Gastro-esophageal reflux disease without esophagitis (principal); D50.9 Iron deficiency anemia, unspecified; K64.8 Other hemorrhoids; K64.4 Residual hemorrhoidal skin tags; Z79.01 Long term (current) use of anticoagulants; I25.10 Atherosclerotic heart disease of native coronary artery without angina pectoris; I50.32 Chronic diastolic (congestive) heart failure; E11.22 Type 2 diabetes mellitus with diabetic chronic kidney disease; I12.9 Hypertensive chronic kidney disease with stage 1 through stage 4 chronic kidney disease, or unspecified chronic kidney disease; N18.3 Chronic kidney disease, stage 3 (moderate); I48.0 Paroxysmal atrial fibrillation; G47.00 Insomnia, unspecified; F32.9 Major depressive disorder, single episode, unspecified; E78.5 Hyperlipidemia, unspecified; I69.351 Hemiplegia and hemiparesis following cerebral infarction affecting right dominant side; Z79.899 Other long term (current) drug therapy
CPT/HCPCS: 43235; 45378; J2405; J7030

== ENCOUNTER 2017-03-04 16:33 | Emergency (ER) | payer MEDICARE, BC ==
[~2017-03-04] VITALS: Ht 166.4 cm; Wt 75.9 kg
[~2017-03-04 16:33] MED LIST changes: -LIDOCAINE 1% (10mg/ml) 2ml SDV INJ ONE; -NORMAL SALINE 1,000 ML IV ONE
[2017-03-04 16:35] VITALS: Ht 166.4 cm; Wt 75.9 kg
--- OUTSIDE RECORDS SUMMARY | 2017-03-04 16:38 | XMS REPORT | Continuity of Care Document ---
Author Author RUPERTO [facility] Organization [facility] Address Unknown Phone Unavailable Support Name Relationship Address Phone EUGENE SALES MD Caregiver [address] [place] [address] Unavailable VARSHA VIDAL DO Caregiver [address] [place] [address] Unavailable NELLIEELLIOT POLLACKDY Next Of Kin [address], [place] [id number] Insurance Providers Guarantor WednesdayRubin Address [address] [place] [address] Email DENIED 17 Payer [employer] Federal Policy Number [id number] Subscriber's Name Wednesday,Rubin Bela Relationship 18 Self Group Number [id number] Effective Date 03 Payer Medicare Policy Number [id number] Subscriber's Name Wednesday,Rubin Bela Relationship 18 Self Advance Directives Directive Response Recorded Date/Time Advanced Directives Type Living Will DPOA for Healthcare 05/03/14 11:57am Ordered Resuscitation Status Full Code 05/03/14 3:58pm Resuscitation Documents on File No 05/03/14 11:57am DPOA for Healthcare Only Yes 02/02/17 9:36am Living Will Yes 02/02/17 9:36am Problems Active Problems Medical Problem Onset Date [...] Bumetanide 2 Mg Tablet 1 Tab Oral Twice A Day 60 Tablet 02/01/17 Buspirone Hcl 10 Mg Tablet 10 Mg [...] Chloride 20 Meq Tablet.er 20 Meq Oral Twice Daily With Meals Take 1 tablet, by mouth, two times a day with meals. 02/01/17 Sotalol Hcl (Sotalol) 80 Mg Tablet 80 Mg Oral Before Meals Twice A Day Take 1 tablet, by mouth, 2 times a day (before meals). 09/10/16 Temazepam 15 Mg Capsule 15 Mg Oral Bedtime as needed for Anxiety 01/04/16 Vilazodone Hydrochloride (Viibryd) 40 Mg Tablet 40 Mg Oral Daily 10/11/15 Past Home Medications Medication Directions Ordered Status [place] C , 800 Mg Oral Daily 01/09/12 [...] 10 Mg Oral Daily 04/14/13 Discontinued Fish Oil/Summers-3 Fatty Acids (Fish Oil 1,000 Mg Capsule) [...] Date/Time Onset Date Status Reason for Hospitalization EGD, COLONOSCOPY 02/02/2017 11:49am Not Applicable Not Applicable Chewing Tobacco Status No 05/03/2014 11:59am Not Applicable Not Applicable Hx Substance Use No 02/02/2017 9:28am Not Applicable Not Applicable Hx Alcohol Use No 02/02/2017 9:28am Not Applicable Not Applicable Has the pt used tobacco in the last 12 months No 02/02/2017 9:28am Not Applicable Not Applicable Tobacco Usage none 08/29/2014 10:14am Not Applicable Not Applicable Query Response Start Date Stop Date Smoking Status Never smoker Hospital Discharge Instructions Instructions: Care Instructions: I was in the hospital because (patient own words): EGD,COLONOSCOPY Discharge Diet: Resume previous diet Discharge Activity: Restricted today, as tolerated tomorrow. Follow Up Appointments: None Pending Lab / Results: No Pending Lab Expected Signs/Symptoms: None Notify Physician If: Severe abdominal pain. During Business Hours:: Please call the physician's office at [phone] and choose option 2. After Business Hours:: Please call [phone] and have the roller operator page Dr. Sales. Pain Management/Treatment: N/A Wound/Incision Care: N/A Condition at time of discharge: Good Plan of Care Discharge Date 02/02/17 1:20pm Prescriptions See Medication Section Functional Status No functional status results. Allergies, Adverse Reactions, Alerts Allergen Type Severity Reaction Status Last Updated Morphine Allergy Severe CARDIAC ARREST Active 02/01/17 Immunizations Immunization Event Date Type Not Given Reason Dose Number Lot Number Infrastructure Architect VIS Given Pneumococcal conjugate PCV 13 01/06/17 Administered 1 [id number] Pfizer Query Response on File Recorded Date/Time Hx Influenza Vaccination Y fall 201502/02/17 9:28am Hx Pneumococcal Vaccination Y fall 201502/02/17 9:28am Hx Influenza Vaccination Y fall 201502/02/17 9:28am Influenza Vaccine Hx AUG 2016 01/06/17 2:09pm Tdap Vaccine Hx 10/11/15 10/11/15 8:47pm Vital Signs Acute Vital Signs Vital Response Date/Time Temperature (Fahrenheit) 97.5 deg F (96.8 - 99.1) 02/02/2017 11:32am Temperature (Calculated Celsius) 36.56392 degrees C (36.0 - 37.3) 02/02/2017 11:32am Temperature Source Oral 02/02/2017 11:32am Pulse Rate (adult) 48 bpm (60 - 100) 02/02/2017 12:02pm Respiratory Rate 14 breaths/min (10 - 20) 02/02/2017 12:02pm O2 Sat by Pulse Oximetry 100 % (90 - 100) 02/02/2017 12:02pm Oxygen Delivery Method Room Air 01/06/2017 9:14pm Oxygen Delivery Method Room Air 02/02/2017 12:02pm Oxygen Flow Rate 2.00 L/min 02/02/2017 11:47am Fraction of Inspired Oxygen (FIO2) 100 % 02/02/2017 10:00am Blood Pressure 133/64 mm Hg 02/02/2017 12:02pm Blood Pressure Source Automatic Cuff 02/02/2017 12:02pm Height (Feet) 5 feet 02/02/2017 9:14am Height (Inches) 5.00 inches 02/02/2017 9:14am Weight (Kilograms) 74.200 kg 02/02/2017 9:14am Body Mass Index (BMI) 27.2 02/02/2017 9:14am Results Laboratory Results Test Name Result Units Flags Reference Collection Date/Time Result Date/ Time Comments White Blood Count 5.1 T/MM3 4.5-11.0 01/07/2017 4:19am 01/07/2017 5: 08am Red Blood Count 3.19 M/MM3 L 4.00-5.20 01/07/2017 4:19am 01/07/2017 5: 08am Hemoglobin 9.0 GM/DL D L 12-16 01/07/2017 11:57am 01/07/2017 12:47pm Hematocrit 26.7 % L 36-46 01/07/2017 4:01/07/2017 5:08am Mean Corpuscular Volume 83.7 UM3 80-100 01/07/2017 4:01/07/2017 5: 08am Mean Corpuscular Hemoglobin 23.2 UUG [...] Absolute Lymphocytes (auto) 1.2 T/MM3 1-4.8 01/07/2017 4:19am 2016 5:08am Absolute Monocytes (auto) 0.6 T/MM3 0-0.8 01/07/2017 4:19am 01/07/2017 5:08am Absolute Eosinophils (auto) 0.3 T/MM3 0-0.5 01/07/2017 4:19am 2016 5:08am Absolute Basophils (auto) 0.0 T/MM3 0-0.2 [...] 5:14am Total Bilirubin 0.50 MG/DL 0.20-1.30 01/06/2017 10:11a01/06/2017 10: 53am Alkaline Phosphatase 83 U/L 38-126 01/06/2017 10:11a01/06/2017 10: 53am Total Protein 6.6 G/DL 6.3-8.2 01/06/2017 10:11a01/06/2017 10:53am Albumin 3.7 G/DL 3.5-5.0 01/06/2017 10:11a01/06/2017 10:53am Globulin 2.9 G/DL 2.4-3.6 01/06/2017 10:11a01/06/2017 10:53am Albumin/Globulin Ratio 1.3 RATIO 1.1-2.2 01/06/2017 10:11a01/06/2017 10:53am Aspartate Amino Transf (AST/SGOT) 40 U/L H 14-36 01/06/2017 10:11am 11/2016 10:53am Alanine Aminotransferase (ALT/SGPT) 35 U/L 9-52 01/06/2017 10:11a11/2016 10:53am Magnesium Level 2.4 MG/DL H 1.6-2.3 01/06/2017 10:11a01/06/2017 10: 53am Iron Level 20 UG/DL L 37-170 01/06/2017 10:11am 01/08/2017 1:36am Total Iron Binding Capacity 408 UG/DL 261-497 01/06/2017 6:16pm 2016 1:24am Percent Iron Saturation 5 % L 9-55 01/06/2017 6:16pm 01/08/2017 1:24am Free Thyroxine 1.09 NG/DL 0.78-2.19 01/06/2017 10:11am 01/08/2017 1: 34am Thyroid Stimulating Hormone (TSH) 3.15 uIU/mL 0.35-4.94 01/06/2017 10: 11a01/06/2017 4:01pm TSH performed at [facility] Reference Lab, [address] [place] [address] Cashier Yane Cameron DO Procedures Procedure Status Date Provider(s) Chest x-ray 2vw frontal&latl Completed 11/17/16 Ht muscle image spect mult Completed 12/22/16 Cardiovascular stress test Completed 12/22/16 116306"TECHNETIUM TC-99M TETROFOSMIN, DIAGNOSTIC, PER STUDY Completed LEXISCAN .4MG/5ML - REGADENOSON Completed 12/22/16 Routine venipuncture Completed 01/06/17 Routine venipuncture Completed 01/06/17 Routine venipuncture Completed 01/06/17 Routine venipuncture Completed 01/06/17 Routine venipuncture Completed 01/06/17 Routine venipuncture Completed 01/06/17 Blood transfusion service Completed 01/06/[address] angiography chest Completed 01/06/17 Metabolic panel total ca Completed 01/06/17 Comprehen metabolic panel Completed 01/06/17 Assay of iron Completed 01/06/17 Assay of iron Completed 01/06/17 Iron binding test Completed 01/06/17 Assay of magnesium Completed 01/06/17 Assay of free thyroxine Completed 01/06/17 Assay thyroid stim hormone Completed 01/06/17 Hemoglobin Completed 01/06/17 Hemoglobin Completed 01/06/17 Complete cbc w/auto diff wbc Completed 01/06/17 Complete cbc w/auto diff wbc Completed 01/06/17 Complete cbc automated Completed 01/06/17 Prothrombin time Completed 01/06/17 Rbc antibody screen Completed 01/06/17 Blood typing serologic abo Completed 01/06/17 Blood typing serologic rh(d) Completed 01/06/17 Compatibility test spin Completed 01/06/17 Compatibility test antiglob Completed 01/06/17 Ppsv23 vacc 2 yrs+ subq/im Completed 01/06/17 Electrocardiogram tracing Completed 01/06/17 Measure blood oxygen level Completed 01/06/17 Hydration iv infusion init Completed 01/06/17 Hydrate iv infusion add-on Completed 01/06/17 Hydrate iv infusion add-on Completed 01/06/17 Ther/proph/diag inj sc/im Completed 01/06/17 [id number] ITEM OR SERVICE Completed 01/06/17 [id number] ITEM OR SERVICE Completed 01/06/17 [id number] ITEM OR SERVICE Completed 01/06/17 [id number] ITEM OR SERVICE Completed 01/06/17 [id number] ITEM OR SERVICE Completed 01/06/17 438340GTI-[id number] ITEM OR SERVICE Completed 01/06/17 [id number]-[id number] ITEM OR SERVICE Completed 01/06/17 [id number] ITEM OR SERVICE Completed 01/06/17 [id number] ITEM OR SERVICE Completed 01/06/17 [id number]-[id number] ITEM OR SERVICE Completed 01/06/17 [id number] ITEM OR SERVICE Completed 01/06/17 [id number]-[id number] ITEM OR SERVICE Completed 01/06/17 [id number] ITEM OR SERVICE Completed 01/06/17 [id number]-[id number] ITEM OR SERVICE Completed 01/06/17 [id number] ITEM OR SERVICE Completed 01/06/17 484524FMUZVZKDFKQSIN OF PNEUMOCOCCAL VACCINE Completed 01/06/17 364156"HOSPITAL OBSERVATION SERVICE, PER HOUR" Completed 01/06/17 339457"HOSPITAL OBSERVATION SERVICE, PER HOUR" Completed 01/06/17 177757"HOSPITAL OBSERVATION SERVICE, PER HOUR" Completed 01/06/17 291053"HOSPITAL OBSERVATION SERVICE, PER HOUR" Completed 01/06/17 [id number] ADMISSION OF PATIENT FOR HOSPITAL OBSERVATION C Completed 890249"INFUSION, NORMAL SALINE SOLUTION , 1000 CC" Completed 01/06/17 387430"INFUSION, NORMAL SALINE SOLUTION , 1000 CC" Completed 01/06/17 402399"INFUSION, NORMAL SALINE SOLUTION , 1000 CC" Completed 01/06/17 028071"INFUSION, NORMAL SALINE SOLUTION , 250 CC" Completed 01/06/17 669179"RED BLOOD CELLS, LEUKOCYTES REDUCED, EACH UNIT" Completed 01/06/17 020947"RED BLOOD CELLS, LEUKOCYTES REDUCED, EACH UNIT" Completed 01/06/17 208940"LOW OSMOLAR CONTRAST MATERIAL, 300-399 MG/ML IODINE C Completed Colonoscopy Completed 02/02/17 EUGENE SALES MD EGD (esophagogastroduodenoscopy) Completed 02/02/17 EUGENE SALES MD Encounters Encounter Location Arrival/Admit Date Discharge/Depart Date Attending Provider Departed [facility] Day [facility] 02/02/17 8:58am 02/02/17 1: 20pm EUGENE SALES MD Discharged Inpatient (obs) [facility] 01/06/17 12:00pm 01/07/17 5 :25pm ALEXSANDRA CAR MD Registered [facility] 12/22/16 8:51am NELLIE ABDULLAHI MD Registered [facility] 12/02/16 1:22pm FLORA DOMÍNGUEZ MD Registered Clinic [facility] 11/17/16 8:46am VARSHA VIDAL DO
--- OUTSIDE RECORDS SUMMARY | 2017-03-04 16:38 | XMS REPORT | Continuity of Care Document ---
Author Author [facility] Organization [facility] Address Unknown Phone Unavailable Support Name Relationship Address Phone NELLIE ABDULLAHI MD Caregiver [address] [place] [phone] VARSHA VIDAL DO Caregiver [address] [place] [phone] NELLIEELLIOT POLLACKDY Next Of Kin [address] [place], [place] [address] Insurance Providers Payer Name Policy Number Subscriber Name Relationship Medicare [id number] Wednesday,Rubin Hidalgo 18 Self [place] [employer] [id number] Wednesday,Rubin Hidalgo 18 Self Advance Directives Directive [...] 15 Mg PO BEDTIME 09/18/11 Active Fish Oil/[place]-3 Fatty Acids 1 Cap PO BEDTIME 09/18/11 [...] 25 Mg PO Q6H PRN 01/09/12 Active [[place] C] 800 Mg PO DAILY 01/09/12 04/14/13 [...] 15 Mg PO BEDTIME 10/11/13 Active Fish Oil/[place]-3 Fatty Acids 1 Cap PO TWICE A [...] or wound, Call Dr. Sales's office at [phone]. During the evening or on the weekends: If you have questions about your care or wound, Call [facility] at [phone] and have the jig boring machine set up operator page Dr. Sales. Condition at time [...] F (96.8 - 99.1) Temperature (Calculated Celsius) 36.42147 degrees C (36.0 - 37.3) Temperature Source [...] 29, 2010 4:50pm LAB TEST FORM REQUEST [id number] - Lipase April 14, 2013 9:06am 45 [...] COMMENT NURSE WILL CALL WHEN PATIENT ARRIVES CE-Nhb-H-Type Natriuretic Peptide August 29, 2014 10:13am 4500 [...] Has specimen been collected/obtained? Y Urine Specific [place] April 14, 2013 9:00am 1.015 - Has [...] 2009 3:00pm Name: WEDNESDAY,RUBIN HIDALGO Unit #: [id number] : 1935 Sex: F Loc / Svc: ED DOS: Signed Report #: [id number] DIAGNOSTIC IMAGING REPORT TYPE OF EXAM: CHEST [...] MD Encounters Encounter Location Date/Time Departed Clinic [facility] 09/04/14 7:36am Departed Emergency Room [facility] 08/29/14 9:49am Discharged Inpatient [facility] 07/01/14 10:37am
--- OUTSIDE RECORDS SUMMARY | 2017-03-04 16:39 | XMS REPORT | Continuity of Care Document ---
Author Author [facility] Organization [facility] Address Unknown Phone Unavailable Support Name Relationship Address Phone EUGENE SALES MD Caregiver [facility] [address] [place] [address] [address] [place] [phone] VARSHA VIDAL DO Caregiver [address] [place] [phone] NELLIEELLIOT POLLACKDY Next Of Kin [address] [place] [address] Insurance Providers Payer Name Policy Number Subscriber Name Relationship Medicare [id number] Wednesday,Rubin Hidalgo [address] [facility] [id number] Wednesday,Rubin Hidalgo 18 Self Advance Directives Directive [...] 15 Mg PO BEDTIME 09/18/11 Active Fish Oil/[place]-3 Fatty Acids 1 Cap PO BEDTIME 09/18/11 [...] 25 Mg PO Q6H PRN 01/09/12 Active [[place] C] 800 Mg PO DAILY 01/09/12 04/14/13 [...] 15 Mg PO BEDTIME 10/11/13 Active Fish Oil/[place]-3 Fatty Acids 1 Cap PO TWICE A [...] or wound, Call Dr. Sales's office at [phone]. During the evening or on the weekends: If you have questions about your care or wound, Call [facility] at [phone] and have the diesel crane operator page Dr. Sales. Condition at time of discharge: Good see patient instructions Care Plan Discharge Patient: Goal: Understand discharge plan Maximum functional status Patient Instructions: see patient instructions rate >100, confusion, or persistent nausea/vomitting. 2.Severe pain, swelling, redness, or warmth in either of your legs. 3.During office hours, call [phone] 4. After hours, please call [facility] at [phone], and have the diesel crane operator page your Surgeon IN THE EVENT [...] F (96.8 - 99.1) Temperature (Calculated Celsius) 36.33370 degrees C (36.0 - 37.3) Temperature Source [...] 29, 2010 4:50pm LAB TEST FORM REQUEST [id number] - Lipase April 14, 2013 9:06am 45 [...] Has specimen been collected/obtained? Y Urine Specific [place] April 14, 2013 9:00am 1.015 - Has [...] MD Encounters Encounter Location Date/Time Discharged Inpatient [facility] 07/01/14 10:37am Registered [facility] 05/04/14 9:26am Registered Clinic [facility] 04/26/14 12:39pm Registered Clinic [facility] 04/17/14 10:22am Registered [facility] 04/12/14 4:01pm Recent Diagnosis Breast carcinoma
--- OUTSIDE RECORDS SUMMARY | 2017-03-04 16:39 | XMS REPORT | Continuity of Care Document ---
Author Author [facility] Organization [facility] Address Unknown Phone Unavailable Support Name Relationship Address Phone VARSHA VIDAL DO Caregiver [address] [place] [phone] KATHERIN BRAR MD Caregiver [address] [place] [address] DION BALLARD Next Of Kin [address] [place] [address] Insurance Providers Payer Name Policy Number Subscriber Name Relationship Medicare [id number] Wednesday,Rubin Hidalgo 18 Self [facility] [id number] Wednesday,Rubin Hidalgo 18 Self Advance Directives Directive [...] 15 Mg PO BEDTIME 09/18/11 Active Fish Oil/[place]-3 Fatty Acids 1 Cap PO BEDTIME 09/18/11 [...] 25 Mg PO Q6H PRN 01/09/12 Active [[place] C] 800 Mg PO DAILY 01/09/12 04/14/13 [...] 15 Mg PO BEDTIME 10/11/13 Active Fish Oil/[place]-3 Fatty Acids 1 Cap PO TWICE A [...] or wound, Call Dr. Sales's office at [phone]. During the evening or on the weekends: If you have questions about your care or wound, Call [facility] at [phone] and have the assembling machine operator page Dr. Sales. Condition at [...] F (96.8 - 99.1) Temperature (Calculated Celsius) 36.33914 degrees C (36.0 - 37.3) Pulse Rate [...] Has specimen been collected/obtained? Y Urine Specific [place] April 14, 2013 9:00am 1.015 - Has [...] 29, 2010 4:50pm LAB TEST FORM REQUEST [id number] - EKG January 21, 2009 9:16am Complete - Turbidity August 29, 2014 10:13am < 20 0-20 Glomerular Filtration Rate Calc August 29, 2014 10:13am 53 - Immature Granulocyte # (Auto) August 29, 2014 10:13am 0.01 T/MM3 N 0.00 -0.03 Immature Granulocyte % (Auto) August 29, 2014 10:13am 0.2 % N 0.0-0.5 Icterus Index August 29, 2014 10:13am < 2 0-7 FY-Sau-I-Type Natriuretic Peptide August 29, 2014 10:13am 4500 [...] 10, 2009 3:00pm Name: WEDNESDAYRUBIN Unit #: [id number] : 1935 Sex: F Loc / Svc: ED DOS: Signed Report #: [id number] DIAGNOSTIC IMAGING REPORT TYPE OF EXAM: CHEST [...] Encounters Encounter Location Date/Time Departed Emergency Room [facility] 08/29/14 9:49am Discharged Inpatient [facility] 07/01/14 10:37am Recent Diagnosis
[2017-03-04] MEDS ORDERED: ASPIRIN 81 MG CHEWABLE TABLET PO ONE ×2 (16:45→17:00)
[2017-03-04] MEDS ORDERED: NORMAL SALINE 1,000 ML IV ONE (16:51)
[2017-03-04 16:54] LABS: BASOPHILS % (AUTO) 0.8 % (0-2); EOSINOPHILS # (AUTO) 0.2 T/MM3 (0-0.5); EOSINOPHILS % (AUTO) 3.8 % (0-4); HCT - HEMATOCRIT 38.1 % (36-46); HGB - HEMOGLOBIN 11.7 GM/DL (12-16); IMMATURE GRANULOCYTE # (AUTO) 0.01 T/MM3 (0.00-0.03); IMMATURE GRANULOCYTE % (AUTO) 0.2 % (0.0-0.5); LYMPHOCYTES # (AUTO) 2.3 T/MM3 (1-4.8); MEAN CORPUSCULAR HGB 26.4 UUG (26-34); MEAN CORPUSCULAR HGB CONC(MCHC 30.7 GM/DL (31-37); MEAN PLATELET VOLUME 9.5 UM3 (9.4-12.4); MONOCYTES # (AUTO) 0.5 T/MM3 (0-0.8); MONOCYTES % (AUTO) 9.1 % (0-9.0); NEUTROPHILS #(AUTO)-ABSOLUTE 1.9 T/MM3 (1.8-7.7); NEUTROPHILS % (AUTO) 39.1 % (33-66); RED BLOOD COUNT 4.43 M/MM3 (4.00-5.20)
[2017-03-04] MEDS: NITROGLYCERIN 0.4 MG SUBLINGUAL TABLET SL PRN ×2 (16:55→17:00)
--- NOTE | 2017-03-04 16:55 | NUR ---
NITRO SL TAB GIVEN PER ORDERS RATES PAIN 3/
[2017-03-04] MEDS ORDERED: NITROGLYCERIN 0.4 MG SUBLINGUAL TABLET SL PRN (17:00)
--- NOTE | 2017-03-04 17:00 | NUR ---
2ND NITRO SL TAB GIVEN PER ORDERS. PATIENT REPORTS PAIN IS THE SAME, RATING IT 3/10
[2017-03-04 17:02] LABS: INR 1.17 (0.76-1.04); PROTHROMBIN TIME 12.8 SEC (9.31-12.49)
[2017-03-04 17:04] LABS: ANION GAP 14 MEQ/L (5-15); BUN/CREATININE RATIO 26 RATIO (6-26); CALCIUM 9.2 MG/DL (8.4-10.2); CHLORIDE 100 MEQ/L (98-107); CO2 - CARBON DIOXIDE 34 MEQ/L (22-30); CREATININE 1.2 MG/DL (0.7-1.2); GLOMERULAR FILTRATION RATE 43; GLUCOSE 103 MG/DL (65-110); POTASSIUM 3.4 MEQ/L (3.6-5); SODIUM 148 MEQ/L (134-144)
[2017-03-04] MEDS ORDERED: RIVA15TA PO (17:08)
[2017-03-04] MEDS ORDERED: [UNRECOGNIZED DRUG - OTHER] BOTH EYES (17:14)
[2017-03-04] MEDS ORDERED: PROM25TA7 PO (17:14)
[2017-03-04] MEDS ORDERED: LANS30CA58 PO (17:14)
[2017-03-04] MEDS ORDERED: HYDR-4009 PO (17:14)
[2017-03-04] MEDS ORDERED: VIT1CAPS21 PO (17:14)
[2017-03-04] MEDS ORDERED: PRAM0.129 PO (17:15)
[2017-03-04 17:16] LABS: PROBNP 918 PG/ML (0-175)
--- NOTE | 2017-03-04 17:44 | NUR ---
RETURNED FROM [facility]
--- OUTSIDE RECORDS SUMMARY | 2017-03-04 17:54 | XMS REPORT | Continuity of Care Document ---
Author Author [facility] Organization [facility] Address Unknown Phone Unavailable Support Name Relationship Address Phone VARSHA VIDAL DO Caregiver [address] [place] [phone] KATHERIN BRAR MD Caregiver [address] [place] [address] DION BALLARD Next Of Kin [address] [place] [address] Insurance Providers Payer Name Policy Number Subscriber Name Relationship Medicare [id number] Wednesday,Rubin Hidalgo 18 Self [facility] [id number] Wednesday,Rubin Hidalgo 18 Self Advance Directives Directive [...] 15 Mg PO BEDTIME 09/18/11 Active Fish Oil/[place]-3 Fatty Acids 1 Cap PO BEDTIME 09/18/11 [...] 25 Mg PO Q6H PRN 01/09/12 Active [[place] C] 800 Mg PO DAILY 01/09/12 04/14/13 [...] 15 Mg PO BEDTIME 10/11/13 Active Fish Oil/[place]-3 Fatty Acids 1 Cap PO TWICE A [...] or wound, Call Dr. Sales's office at [phone]. During the evening or on the weekends: If you have questions about your care or wound, Call [facility] at [phone] and have the tool grinder operator external page Dr. Sales. Condition at time of [...] F (96.8 - 99.1) Temperature (Calculated Celsius) 36.69878 degrees C (36.0 - 37.3) Pulse Rate [...] Has specimen been collected/obtained? Y Urine Specific [place] April 14, 2013 9:00am 1.015 - Has [...] 29, 2010 4:50pm LAB TEST FORM REQUEST [id number] - EKG January 21, 2009 9:16am Complete - Turbidity August 29, 2014 10:13am < 20 0-20 Glomerular Filtration Rate Calc August 29, 2014 10:13am 53 - Immature Granulocyte # (Auto) August 29, 2014 10:13am 0.01 T/MM3 N 0.00 -0.03 Immature Granulocyte % (Auto) August 29, 2014 10:13am 0.2 % N 0.0-0.5 Icterus Index August 29, 2014 10:13am < 2 0-7 BU-Jqd-L-Type Natriuretic Peptide August 29, 2014 10:13am 4500 [...] 10, 2009 3:00pm Name: WEDNESDAYRUBIN Unit #: [id number] : 1935 Sex: F Loc / Svc: ED DOS: Signed Report #: [id number] DIAGNOSTIC IMAGING REPORT TYPE OF EXAM: CHEST [...] Encounters Encounter Location Date/Time Departed Emergency Room [facility] 08/29/14 9:49am Discharged Inpatient [facility] 07/01/14 10:37am Recent Diagnosis
--- OUTSIDE RECORDS SUMMARY | 2017-03-04 17:54 | XMS REPORT | Continuity of Care Document ---
Author Author [facility] Organization [facility] Address Unknown Phone Unavailable Support Name Relationship Address Phone NELLIE ABDULLAHI MD Caregiver [address] [place] [phone] VARSHA VIDAL DO Caregiver [address] [place] [phone] NELLIEELLIOT POLLACKDY Next Of Kin [address] [place], [place] [address] Insurance Providers Payer Name Policy Number Subscriber Name Relationship Medicare [id number] Wednesday,Rubin Hidalgo 18 Self [place] [employer] [id number] Wednesday,Rubin Hidalgo 18 Self Advance Directives Directive [...] 15 Mg PO BEDTIME 09/18/11 Active Fish Oil/[place]-3 Fatty Acids 1 Cap PO BEDTIME 09/18/11 [...] 25 Mg PO Q6H PRN 01/09/12 Active [[place] C] 800 Mg PO DAILY 01/09/12 04/14/13 [...] 15 Mg PO BEDTIME 10/11/13 Active Fish Oil/[place]-3 Fatty Acids 1 Cap PO TWICE A [...] or wound, Call Dr. Sales's office at [phone]. During the evening or on the weekends: If you have questions about your care or wound, Call [facility] at [phone] and have the joint cleaning machine operator page Dr. Sales. Condition at [...] F (96.8 - 99.1) Temperature (Calculated Celsius) 36.60449 degrees C (36.0 - 37.3) Temperature Source [...] 29, 2010 4:50pm LAB TEST FORM REQUEST [id number] - Lipase April 14, 2013 9:06am 45 [...] COMMENT NURSE WILL CALL WHEN PATIENT ARRIVES SO-Egt-P-Type Natriuretic Peptide August 29, 2014 10:13am 4500 [...] Has specimen been collected/obtained? Y Urine Specific [place] April 14, 2013 9:00am 1.015 - Has [...] 2009 3:00pm Name: WEDNESDAY,RUBIN HIDALGO Unit #: [id number] : 1935 Sex: F Loc / Svc: ED DOS: Signed Report #: [id number] DIAGNOSTIC IMAGING REPORT TYPE OF EXAM: CHEST [...] MD Encounters Encounter Location Date/Time Departed Clinic [facility] 09/04/14 7:36am Departed Emergency Room [facility] 08/29/14 9:49am Discharged Inpatient [facility] 07/01/14 10:37am
--- OUTSIDE RECORDS SUMMARY | 2017-03-04 17:55 | XMS REPORT | Continuity of Care Document ---
Author Author [facility] Organization [facility] Address Unknown Phone Unavailable Support Name Relationship Address Phone EUGENE SALES MD Caregiver [facility] [address] [place] [address] [address] [place] [phone] VARSHA VIDAL DO Caregiver [address] [place] [phone] NELLIEELLIOT POLLACKDY Next Of Kin [address] [place] [address] Insurance Providers Payer Name Policy Number Subscriber Name Relationship Medicare [id number] Wednesday,Rubin Hidalgo 18 Self [facility] [id number] Wednesday,Rubin Hidalgo 18 Self Advance Directives Directive [...] 15 Mg PO BEDTIME 09/18/11 Active Fish Oil/[place]-3 Fatty Acids 1 Cap PO BEDTIME 09/18/11 [...] 25 Mg PO Q6H PRN 01/09/12 Active [[place] C] 800 Mg PO DAILY 01/09/12 04/14/13 [...] 15 Mg PO BEDTIME 10/11/13 Active Fish Oil/[place]-3 Fatty Acids 1 Cap PO TWICE A [...] or wound, Call Dr. Sales's office at [phone]. During the evening or on the weekends: If you have questions about your care or wound, Call [facility] at [phone] and have the slope hoist operator page Dr. Sales. Condition at time of discharge: Good see patient instructions Care Plan Discharge Patient: Goal: Understand discharge plan Maximum functional status Patient Instructions: see patient instructions rate >100, confusion, or persistent nausea/vomitting. 2.Severe pain, swelling, redness, or warmth in either of your legs. 3.During office hours, call [phone] 4. After hours, please call [facility] at [phone], and have the slope hoist operator page your Surgeon IN THE EVENT [...] F (96.8 - 99.1) Temperature (Calculated Celsius) 36.87325 degrees C (36.0 - 37.3) Temperature Source [...] 29, 2010 4:50pm LAB TEST FORM REQUEST [id number] - Lipase April 14, 2013 9:06am 45 [...] Has specimen been collected/obtained? Y Urine Specific [place] April 14, 2013 9:00am 1.015 - Has [...] MD Encounters Encounter Location Date/Time Discharged Inpatient [facility] 07/01/14 10:37am Registered [facility] 05/04/14 9:26am Registered Clinic [facility] 04/26/14 12:39pm Registered Clinic [facility] 04/17/14 10:22am Registered [facility] 04/12/14 4:01pm Recent Diagnosis Breast carcinoma
--- NOTE | 2017-03-04 18:15 | NUR ---
REPORT RECIEVED REPORT FROM JERRY CEE
--- NOTE | 2017-03-04 18:27 | ERPDOC ---
Departure Disposition Decision Date: Mar 04, 2017 Disposition Decision Time: 18:28 Disposition: 01 DISCHARGED HOME, SELF-CARE Impression Impression Impression: Primary Impression: Pneumonia Additional Impressions: History of coronary artery disease Chest pain Severity: Moderate Condition: Improved Seen By: Physician only Referrals: VARSHA VIDAL DO (Family) BISHNU ROLON MD Patient Instructions: Bacterial Pneumonia (ED), Chest Pain (ED) Problems/Meds/Labs Reviewed?: Yes Medications reviewed and manag: Yes Additional Instructions: You've been given Rocephin as an antibiotic in the emergency department. Please take Zithromax 500 mg tablets, one daily for 3 days. Please follow up with her primary care provider on Wednesday. I would also recommend that you see cardiology on Wednesday. Follow up care ordered?: Yes Mental Status: Alert, Oriented Scripts Azithromycin (Zithromax Tri-Toni) 500 Mg Tablet 1 TAB PO DAILY for 3 Days, TAB Prov: DOTTY DAWSON MD 03/04/17 HPI - Chest Pain General Chief Complaint: Chest Pain Stated Complaint: CHEST PAIN Time Seen by Provider: 16:50 HPI - Chest Pain Initial Comments 81-year-old female presents with chest pain for 2 days. She has history of previous CABG, is a nonsmoker, has not had any issues for several years. She does have nitroglycerin it is never used it. She has felt rundown and tired the last 2 days. Has been coughing more than normal. Edema of legs is not worsened. Aspirin Treatment Today: 81 mg x 4 Allergies: Coded Allergies: morphine (Verified Allergy, Severe, CARDIAC ARREST, 03/04/17) Past History Patient Surgical History CABG- 08/2016 ( Dr Pereira) Bilateral mastectomy. Hysterectomy ERCP-1985 Last reported colonoscopy and EGD were in 2001 Past Medical History Metabolic: hypertension Cardiac: A-fib GI: GERD, IBS, constipation Neurological: migraines Psychological: bipolar, depression Surgical History General: EGD, appendix, colonoscopy, gallbladder Family History Family PMH: FOUND: other Vaccines Hx Influenza Vaccination: Yes (fall 2015) Hx Pneumococcal Vaccination: Yes (fall 2015) Social History Does patient use chewing tobac: No Substance Use Type: does not use Substance last used: unknown Alcohol Intake: none Last Drink: unknown Housing: house Advance Directives: Yes Full Code Record Review Pertinent history updated: Yes Review of Systems Cardiovascular Cardiac: see HPI Pulmonary Respiratory: see HPI All other Systems All Other Systems: Reviewed and Negative Physical Exam General General Nourishment: well nourished, well developed, appears stated age, no acute distress General Body Habitus: well groomed Vitals and Pain First Documented Vital Signs Date Time Temp Pulse Resp B/P Pulse Ox O2 Delivery O2 Flow Rate FiO2 03/04/17 16:35 98.0 62 18 176/84 96 Room Air Weight: Kilograms: 75.900 Height (feet): 5 Height (inches): 5.50 Triage Pain Scale: Normal Exams: Head: Normocephalic w/o trauma CV: Regular rate and rhythm, without murmur or gallop, Pulses 2+ all extremities, capillary refill, <2 seconds all ext., no pedal edema noted Abdomen: Bowel sounds positive, soft, non-tender, non-distended, no hepatosplenomegaly, masses or bruits noted Neurologic: Patient is alert, and oriented, cranial nerves, motor/sensory/ cerebellar, exams w/o gross deficits, to observation Psychiatric: Patient exhibits, appropriate attention, emotion and affect Respiratory (brief) Comments Diminished breath sounds bilateral, crackles heard. No wheezes heard Differential Diagnoses Considering: Acute CO, Anxiety/Panic, Costochondritis, Pneumothorax, Pneumonia , Pulmonary Edema, Pulmonary Embolus Progress Results/Orders Orders Procedure Category Date Status Time Cbc W/Auto LAB 03/04/17 Complete Diff-Reflex Manual 16:43 Bmp - Basic Metabolic LAB 03/04/17 Complete Panel 16:43 Probnp LAB 03/04/17 Complete 16:43 Troponin I W LAB 03/04/17 Complete Hemolysis Index 16:43 INR LAB 03/04/17 Complete 16:43 EKG EKG 03/04/17 Logged 16:43 Iv Lock (Ed Only) EDM 03/04/17 Transmitted 16:43 Aspirin (Asa) PHA 03/04/17 Complete 16:45 Nitroglycerin PHA 03/04/17 In Process (Nitrostat) 16:45 Ua, Dip Wreflex LAB 03/04/17 Logged [employer] City Maintenance Manager 16:51 D-Dimer LAB 03/04/17 Complete 16:51 Chest, Pa & Lateral RAD 03/04/17 Taken 16:51 Normal Saline (Normal PHA 03/04/17 Complete Saline Iv) 16:51 Aspirin (Asa) PHA 03/04/17 Complete 17:00 Nitroglycerin PHA 03/04/17 In Process (Nitrostat) 17:00 Lab Results Laboratory Tests Test 03/04/17 16:46 03/04/17 16:51 White Blood Count 5.0T/MM3 Red Blood Count 4.43M/MM3 Hemoglobin 11.7GM/DL Hematocrit 38.1% Mean Corpuscular Volume 86.0UM3 Mean Corpuscular Hemoglobin 26.4UUG Mean Corpuscular Hemoglobin Concent 30.7GM/DL RDW Standard Deviation 67.7FL Platelet Count 211T/MM3 Mean Platelet Volume 9.5UM3 Immature Granulocyte % (Auto) 0.2% Neutrophils (%) (Auto) 39.1% Lymphocytes (%) (Auto) 47.0% Monocytes (%) (Auto) 9.1% Eosinophils (%) (Auto) 3.8% Basophils (%) (Auto) 0.8% Absolute Immature Granulocyte (auto 0.01T/MM3 Absolute Neutrophils (auto) 1.9T/MM3 Absolute Lymphocytes (auto) 2.3T/MM3 Absolute Monocytes (auto) 0.5T/MM3 Absolute Eosinophils (auto) 0.2T/MM3 Absolute Basophils (auto) 0.0T/MM3 Prothromb Time International Ratio 1.17 Turbidity < 20 Sodium Level 148MEQ/L Potassium Level 3.4MEQ/L Chloride Level 100MEQ/L Carbon Dioxide Level 34MEQ/L Anion Gap 14MEQ/L Blood Urea Nitrogen 31.0MG/DL Creatinine 1.2MG/DL Glomerular Filtration Rate Calc 43 BUN/Creatinine Ratio 26RATIO Glucose Level 103MG/DL Calculated Osmolality 291MOSM/KG Calcium Level 9.2MG/DL Icterus Index < 2 Troponin I 0.029ng/ml UF-Uhe-N-Type Natriuretic Peptide 918PG/ML Chemistry Specimen Hemolysis < 15 D-Dimer < 150NG/ML Medications Current ED Medications Aspirin (ASA) 324 mg O ONCE PO Last administered on 03/04/17 16:53; Start at 16:45; Stop 03/04/17 at 16:46; Status DC Nitroglycerin 0.4 mg 0.4 mg Q5MIN PRN SL CHEST PAIN Last administered on 17:00; Start 03/04/17 at 16:45 Sodium Chloride (Normal Saline IV) 1,000 ml @ 1,000 mls/hr Q1H ONCE IV Last administered on 03/04/17t 17:09; Start 03/04/17 at 16:51; Stop 03/04/17 at 17:50 ; Status DC Aspirin (ASA) 324 mg O ONCE PO ; Start 03/04/17 at 17:00; Stop 03/04/17 at 17: 01; Status DC Nitroglycerin (Nitrostat) 0.4 mg Q5MIN PRN SL CHEST PAIN; Start 03/04/17 at 17: 00 Progress Progress Troponin negative, EKG looks appropriate. Patient did have one nitroglycerin and chest pain improved for a couple minutes, she received a second nitroglycerin sometime later and it did not help. Her chest pain gradually resolved while she was in the emergency department. She did receive chest x-ray which is presented reversed on the screen, but shows a right sided infiltrate. White count is not elevated, but she presents with symptoms of a pneumonia. Exam , evaluation and chest x-ray all point towards this. She'll be given Rocephin 1 g IM, then Zithromax 500 mg daily for 3 days. Would like her to follow up with her primary care provider by Wednesday if she is not feeling better. If the chest pain returns I recommended that she return to the ED for evaluation. Especially due to her cardiac history. I offered to keep her overnight in observation, but she declined. DOTTY DAWSON MD Mar 04, 2017 18:27
[2017-03-04] MEDS ORDERED: AZIT500T2 PO (18:30)
[2017-03-04] MEDS ORDERED: CEFTRIAXONE 1 GRAM INJECTION IM ONE (18:30)
[2017-03-04 18:40] VITALS: BP 129/71; PULSE 51; RESP 20; TEMP 98.2; O2SAT 96
--- NOTE | 2017-03-04 18:55 | NUR ---
DEPART PT AND DAUGHTER ARE GIVEN DISMISSAL INSTRUCTIONS WITH VERBAL UNDERSTANDING. PT IS GIVEN OFFICE NUMBER FOR DR ROLON. PT LEAVES AMBULATORY TO ED EXIT.
--- NOTE | 2017-03-05 08:38 | DI ---
INDICATION: ITS.REASON: chest pain PROCEDURE: CHEST 2-VIEWS UPRIGHT (PA \T\ LAT) Encounter: Initial Comparison: November 17, 2016 Findings: The lungs are stable in appearance without new focal airspace consolidation. There is no pleural effusion or pneumothorax. Hyperinflation. The heart size, pulmonary vascularity and mediastinal contours are unchanged. Prior CABG. IMPRESSION: Stable appearance of the chest without acute cardiopulmonary disease. .
== END 2017-03-04 18:55 | disposition home or self-care (01) ==
LOC: ED 16:33
DX: J18.9 Pneumonia, unspecified organism (principal); I25.10 Atherosclerotic heart disease of native coronary artery without angina pectoris; I10 Essential (primary) hypertension; Z95.1 Presence of aortocoronary bypass graft
CPT/HCPCS: 71020; 80048; 83880; 84484; 85025; 85379; 85610; 93005; 96372; 99284; A9270; J0696; J7030